=== PATIENT | male | born 1945 | race Caucasian/White ===

== ENCOUNTER 2019-08-15 14:12 | Day surgery (SDC) | payer MEDICARE, SELFPAY ==
[2019-08-14 08:15] VITALS: BMI 25.5
--- NOTE | 2019-08-15 | PATH_ITS ---
[facility] Accession Number: [id number] . 01 Material submitted: . toe - LEFT THIRD TOE . 01 Clinical history: . MASS, DOUBLE STITCH MEDIAL, SINGLE STITCH DISTAL TIP . 01 Diagnosis: Skin, Left Third Toe, Excision: Pyogenic granuloma, ulcerated. [facility] 08/19/2019 1831 Local . 01 Electronically signed: . Asia Jamison MD, Pathologist NPI- [id number] . 01 Gross description: . Received in formalin, labeled left third toe mass, two stitches medial, single distal tip, is a hankins-yellow firm mass (2.0 cm proximal to distal, 1.2 cm superior to inferior, 1.4 cm medial to lateral) oriented with sutures (double-medial, single-distal tip). The cut surface is doty-white and hankins-yellow, smooth and semi-translucent. Ink code: purple-distal, yellow-proximal, black-superior, orange-inferior, blue-lateral, green-medial. Section code: (A1) distal margin, perpendicularly sectioned, entirely submitted; (A2) cash applications representative serial sections; (A3) proximal margin, perpendicularly sectioned, entirely submitted. ([id number]) /MRV 08/16/2019 1257 Local . 01 Pathologist provided ICD-10: L98.0 . 01 CPT . 505028 Performed at: [address] [facility] [address], [place], [place] [id number] MD Chin Holliday MD Phone: [phone]
[2019-08-15 15:00] VITALS: BP 203/112; PULSE 103; RESP 17; TEMP 37.5; O2SAT 97; BMI 25.5
[2019-08-15] MEDS: LACTATED RINGERS 1,000 ML 100 ML IV (15:44)
[2019-08-15] MEDS: MIDAZOLAM 2 MG/2 ML VIAL IV (15:44)
[2019-08-15 16:22] VITALS: BP 178/95; PULSE 89; RESP 17; TEMP 37.1; O2SAT 95
--- NOTE | 2019-08-15 16:23 | SUR.PREOP ---
Pt arrived with a BP of 203/112 and a HR of 103. This was reported to both Dr. Knight and Dr. Hawkins. Verbal orders received and written for 1-2mg versed IV. 1mg administered at 1544. BP rechecked at 1615 and shows BP 178/95 HR in mid 80's. Pt was also placed on continuous pulse ox for observation.
--- NOTE | 2019-08-15 16:39 | PM.PREOP ---
Pre-operative Note Interval Note History & Physical reviewed/Exam performed by Physician: Yes Changes to H&P: No
--- NOTE | 2019-08-15 16:39 | PM.OP.1 ---
Operative Date/Time/Diagnoses Date of procedure: 08/15/19 Time of procedure: 16:39 Pre-op diagnosis: Soft tissue mass left third toe Post-op diagnosis: same Procedure & Clinicians Procedure: Left third toe excision soft tissue mass Same procedure as scheduled: Yes Indications: Large soft tissue mass, chronic, to the left third toe. He states history x10-12 years with waxing and waning in size, however this last enlargement has not retracted and has been painful. Due to pain, difficulty wearing shoes, and need for histlogical biopsy, decision made for surgical excision. Surgeon: Amisha Knight Click Yes if Unassisted: Yes Anesthesia Type: Sedation and Local Operative Notes Closure Type: primary Specimen(s): other (Left third toe soft tissue mass sent to pathology for identification) Estimated Blood Loss (mL): 10 Blood products transfused: none Procedure in detail: The patient was brought to the operating room and placed on the operating table in the supine position. Well padded appropriately aligned. After induction of IV sedation local anesthesia was obtained to the 3rd toe and the foot and ankle were prepped and draped in the usual aseptic manner. After check of anesthesia a full-thickness incision was made around the fleshy stalk of the mass connecting to distal tip of the left 3rd toe. Immediately there was a bleeding at the tip and pressure was applied. No purulent discharge was noted. The fleshy mass was measured at 2.1 cm length by 1.1 cm width by 0.6 cm in thickness. It was a slightly curved mass based on the pressure from the nail and the distal tip of the toe. This was then tagged with the most proximal or dorsal tip of the fleshy mass with a single suture tag and the most medial aspect of the fleshy mass with 2 suture tags. This was passed off to be sent to pathology. With a slightly more elongated incision in that same location on the tip of the toe this allowed me to see some of the further aspect of the stalk of the vascular component. This was debrided and then the area was curetted. This was irrigated with copious amounts of normal sterile saline and cautery was performed. No necrotic tissue or abscesses were noted. 4-0 nylon was used for closure to the skin. The area was dressed with a sterile lightly compressive dressing. He was placed in a stockinette and postoperative shoe and transferred to the PACU with vital signs stable. Complications: none Post-operative Condition: stable Disposition: PACU Plan for aftercare: Following a period of postoperative monitoring, the patient will be discharged home on written and oral postoperative instructions including keeping the dressing dry and intact. He and his neighbor who were present had questions regarding his ambulation status. It was decided that his neighbors going to help walk his dog as significant amounts of pressure and walking on this toe could diminish the potential for wound closure and incisional healing. This also could cause some additional bleeding and we discussed measures to take in case that bleeding occurred. This appears to me to be a vascularly motivated mass and looking at the distal tip of the toe as I worked with that further, there are segments of the distal tip of the toe that did cause me to have questions about the possibility that the toe has itself a vascular component that is different than the surrounding digits. We will see how he is healing and also gain further insight from the pathology as it returns. They voiced understanding and he will follow up for a wound check at our office at his regularly scheduled time and hopefully we can get some further information about the pathology at that visit.
[2019-08-15] MEDS: CEFAZOLIN 2 GM/100 ML FROZ.PIGGY IV (16:54)
--- NOTE | 2019-08-15 17:11 | SUR.OPER ---
Supine on padded OR bed, head on pillow, arms secured on padded arm boards at <90 degrees abduction, legs uncrossed, safety belt at waist, tape over blanket over lower right leg, left g with gel bump under thigh and draped free.
[2019-08-15] MEDS: LIDOCAINE 2% INJ SDV 5 ML INJ (17:21)
[2019-08-15] MEDS: BUPIVACAINE 0.5% (PF) VIAL 30 ML INJ (17:22)
[2019-08-15 17:41] VITALS: BP 214/104; PULSE 82; RESP 15; TEMP 36.5; O2SAT 99
[2019-08-15 18:00] VITALS: BP 209/93; PULSE 80; RESP 15; TEMP 36.2; O2SAT 98
[2019-08-15 18:10] VITALS: BP 204/95; PULSE 75; RESP 14; TEMP 36.1; O2SAT 99
--- NOTE | 2019-08-15 18:48 | SUR.PHASEII ---
Dr. Knight and Dr. Lewis both aware of pt blood pressure readings in Phase II. Pt asymptomatic and pt reports he is very anxious in healthcare facilities which cause him to have high blood pressure readings. Per both Md's ok for pt to be discharged to home as pt pre op bp reading was within 20 points. Pt instructed to follow up with his pcp reading his bp readings. pt voiced understanding and stated he had a follow up appt scheduled with pcp next Monday. Pt dc to home with his friend in stable condition.
== END 2019-08-15 18:25 ==
LOC: OR 14:17
PROVIDERS: Family Provider Internal Medicine; PCP Internal Medicine; Visit Provider Podiatrist
PROC: (CPT 64782; principal; 2019-08-15 16:00)
DX: L98.0 Pyogenic granuloma (principal)
CPT/HCPCS: 28039; J0690; J2250; J2704

== ENCOUNTER 2019-09-25 11:41 | Day surgery (SDC) | payer MEDICARE, SELFPAY ==
[2019-09-25 12:09] VITALS: BP 202/104; PULSE 105; RESP 18; TEMP 37; O2SAT 98; BMI 23.8
[2019-09-25 12:40] VITALS: BMI 23.8
--- NOTE | 2019-09-25 12:49 | SUR.PREOP ---
Notified Dr Rick pt's BP 201/104. No new orders.
--- NOTE | 2019-09-25 12:55 | PM.HP.1 ---
History of Present Illness History of Present Illness Date Patient Seen: 09/25/19 Time Patient Seen: 12:56 Chief complaint: [address] Narrative: Screening, 1st time Patient History Medical History (Updated 08/14/19 @ 12:48 by Iris Miranda RN) Elevated blood pressure reading without diagnosis of hypertension (Acute) GERD (gastroesophageal reflux disease) (Acute) Localized swelling, mass and lump, left lower limb (Acute 08/12/19) Surgical History (Updated 08/14/19 @ 12:48 by Iris Miranda RN) History of excision of pilonidal cyst (Acute ~1968) Family & Social History Social History: household members none Tobacco & Substance use: Smoking Status Former smoker Substance Use Type does not use Meds Home Medications and Allergies Home Medications Medication Instructions Recorded Confirmed Type aspirin 81 mg PO DAILY 08/14/19 09/25/19 History multivitamin 1 cap PO DAILY 08/14/19 09/25/19 History omeprazole 20 mg PO Q OTHER DAY 08/14/19 09/25/19 History lisinopril 10 mg PO DAILY 09/25/19 09/25/19 History simvastatin 10 mg PO QPM 09/25/19 09/25/19 History Allergies Allergy/AdvReac Type Severity Reaction Status Date / Time No Known Drug Allergies Allergy Verified 09/25/19 12:05 Exam Vital Signs (past 8 hours): - 09/25/19 12:09 Temperature 98.6 F Pulse Rate 105 H Respiratory Rate 18 Blood Pressure 202/104 H Pulse Oximetry 98 Oxygen Delivery Method Room Air Narrative Exam Narrative: Oropharynx free of lesions Chest clear to auscultation percussion Cardiac exam reveals no S3 or murmur Assessment & Plan Assessment & Plan narrative: For screening colonoscopy. Risks benefits and alternatives been explained. Further recommendations will follow the results of the study.
--- NOTE | 2019-09-25 12:56 | PM.OP.ENDO ---
Operative Date/Time/Diagnoses Date of procedure: 09/25/19 Time of procedure: 12:57 Pre-op diagnosis: See indication and findings Procedure & Clinicians Study performed: Colonoscopy Indications: Screening Surgeon: Félix Rick Procedure Notes Procedure in detail: After informed consent was obtained the patient was placed in left lateral decubitus position. The video colonoscope was introduced the rectum slowly advanced to the cecum. On slow withdrawal mucosa was carefully examined. The scope was removed. The patient tolerated procedure well. Blood loss none Complications none Sedation Total sedation time 21 minutes Versed 4 mg fentanyl 150 micro g IV titration Findings 1. Scattered left-sided diverticulosis 2. Otherwise negative colonoscopy to cecum The patient is in excellent health 1 might consider follow-up colonoscopy. NB: Prior to sedation patient had very high blood pressure ranging up to the 210 over 120 range. Once receiving sedation his heart rate came down from 01/20 range to the 80 range in blood pressure was 150/95. As soon as he opened his eyes again it jumped up to 175/105. I told of a worthwhile to follow-up with Dr. gonzalez for further discussion.
[2019-09-25] MEDS: MIDAZOLAM 5 MG/5 ML VIAL IV (13:33)
[2019-09-25] MEDS: fentaNYL 250 MCG/5 ML INJ IV (13:33)
[2019-09-25 13:55] VITALS: BP 171/93; PULSE 97; RESP 18; O2SAT 96
[2019-09-25 14:06] VITALS: BP 166/95; PULSE 90; RESP 16; TEMP 36.8; O2SAT 97
== END 2019-09-25 14:37 | disposition home or self-care (01) ==
LOC: ENDO 11:45
PROVIDERS: Family Provider Internal Medicine; PCP Internal Medicine; Visit Provider Internal Medicine Gastroenterology
PROC: 0DJD8ZZ Inspection of Lower Intestinal Tract, Via Natural or Artificial Opening Endoscopic (ICD-10-PCS; CPT 45378; principal; 2019-09-25 13:00)
DX: Z12.11 Encounter for screening for malignant neoplasm of colon (principal); K57.30 Diverticulosis of large intestine without perforation or abscess without bleeding
CPT/HCPCS: G0121; J2250; J3010

== ENCOUNTER → 2020-04-01 07:25 | Outpatient (CLI) | payer MEDICARE, SELFPAY ==
[2020-04-01 09:09] LABS: Alanine Aminotransferase 20 IU/L (<50); Albumin 4.3 g/dL (3.5-5.0); Albumin Globulin Ratio 1.4 (1.0-2.8); Alkaline Phosphatase 57 U/L (38-126); Aspartate Aminotransferase 30 IU/L (17-59); BUN Creatinine Ratio 18.8 (6-22); Bilirubin Total 0.5 mg/dL (0.2-1.3); Blood Urea Nitrogen 16 mg/dL (9-20); Calcium 10.4 mg/dL (8.4-10.2); Carbon Dioxide 25 mmol/L (22-32); Chloride 103 mmol/L (98-107); Cholesterol 167 mg/dL (140-199); Estimated Glomerular Filt Rate > 60.0 mL/min (>60); Glucose 112 mg/dL (80-110); HDL Cholesterol 47 mg/dL (40-60); HEMOLYSIS < 15 (0-50); LDL Cholesterol Calculated 107 mg/dL (<100); Potassium 4.8 mmol/L (3.4-5.1); Sodium 137 mmol/L (137-145); Total Protein 7.3 g/dL (6.3-8.2); Triglycerides 66 mg/dL (35-150)
[2020-04-02 08:19] LABS: PSA Free % 18.3 % (.)
== END ==
PROVIDERS: Family Provider Internal Medicine; PCP Internal Medicine; Referring Provider Internal Medicine; Visit Provider Internal Medicine
DX: N40.1 Benign prostatic hyperplasia with lower urinary tract symptoms (principal); E78.5 Hyperlipidemia, unspecified
CPT/HCPCS: 36415; 80053; 80061; 84153; 84154

== ENCOUNTER → 2021-01-14 09:57 | Outpatient (CLI) | payer MEDICARE, SELFPAY ==
[2021-01-14] MEDS: COVID-19 VACC, Ad26(JANSSEN)/PF 0.5 ML IM (10:03)
== END ==
PROVIDERS: Family Provider Internal Medicine; PCP Internal Medicine; Visit Provider Internal Medicine
DX: Z23 Encounter for immunization (principal)
CPT/HCPCS: 0031A; 91303

== ENCOUNTER 2021-11-11 15:02 | Emergency (ER) | payer MEDICARE, SELFPAY ==
[2021-11-11] VITALS (15 sets, daily range): BP systolic 172–232; BP diastolic 86–125; PULSE 84–135; RESP 14–23; TEMP 36.8; O2SAT 91–97; BMI 21.7
[2021-11-11 16:11] LABS: Add Manual Diff / Slide Review NO; Basophils Absolute Auto 100 /uL (0-100); Basophils Percent Auto 0.6 % (0-2); Eosinophils Absolute Auto 100 /uL (0-450); Eosinophils Percent Auto 0.5 % (2-4); Hematocrit 45.3 % (41-53); Hemoglobin 15.6 g/dL (13.5-17.5); Lymphocytes Absolute Auto 1300 /uL (1100-4500); Lymphocytes Percent Auto 12.4 % (25-40); Mean Corpuscular HGB Conc 34.4 % (30-36); Mean Corpuscular Hemoglobin 33.2 PG (26-34); Mean Corpuscular Volume 96.5 fL (80-100); Monocytes Absolute Auto 1100 /uL (0-900); Monocytes Percent Auto 10.1 % (3-14); Neutrophils Absolute Auto 8300 /uL (1500-7000); Neutrophils Percent Auto 76.4 % (50-75); Platelet Count 330 X10^3/uL (150-400); Red Blood Cell Count 4.69 X10^6/uL (4.5-5.9); White Blood Cell Count 10.8 X10^3/uL (4.5-11.0)
[2021-11-11 16:16] LABS: Prothrombin Time 11.2 SECONDS (10.1-12.7)
[2021-11-11 16:19] LABS: PTT Partial Thromboplastin Tim 32 SECONDS (26.4-36.2)
[2021-11-11 16:23] LABS: Alanine Aminotransferase 22 IU/L (<50); Albumin 4.9 g/dL (3.5-5.0); Albumin Globulin Ratio 1.2 (1.0-2.8); Alkaline Phosphatase 67 U/L (38-126); Aspartate Aminotransferase 34 IU/L (17-59); BUN Creatinine Ratio 21.8 (6-22); Bilirubin Total 0.4 mg/dL (0.2-1.3); Blood Urea Nitrogen 17 mg/dL (9-20); Calcium 10.6 mg/dL (8.4-10.2); Carbon Dioxide 27 mmol/L (22-32); Chloride 100 mmol/L (98-107); Creatine Kinase 118 U/L (55-170); Estimated Glomerular Filt Rate > 60.0 mL/min (>60); Glucose 136 mg/dL (80-110); HEMOLYSIS 24 (0-50); Lipase 88 U/L (23-300); Potassium 4.2 mmol/L (3.4-5.1); Sodium 136 mmol/L (137-145); Total Protein 8.9 g/dL (6.3-8.2)
[2021-11-11 16:33] LABS: Troponin I < 0.012 ng/mL (0.01-0.034)
[2021-11-11 16:38] LABS: CKMB % Relative Index 2.2 % (1.5-5.0); Creatine Kinase MB 2.55 ng/mL (<2.37)
--- NOTE | 2021-11-11 17:41 | DI.CT.S_ITS ---
PROCEDURE: CT ABDOMEN PELVIS W CON INDICATIONS: abdd pain TECHNIQUE: After the administration of intravenous contrast, axial sections acquired from the lung bases to the pubic symphysis. Coronal and sagittal reformats were performed. For radiation dose reduction, the following was used: automated exposure control, adjustment of mA and/or kV according to patient size. COMPARISON: None. FINDINGS: Image quality: Diagnostic Lung bases: Patchy bibasilar opacities. Heart: No significant findings. Very small hiatal hernia. ABDOMEN: Liver: Unremarkable. Gallbladder: Unremarkable. Biliary ducts: Unremarkable. Pancreas: Unremarkable. Spleen: Unremarkable. Adrenal Glands: Unremarkable. Kidneys and Ureters: Unremarkable. Subcentimeter right renal hypodensity is incompletely characterized but likely represents a small cyst. Stomach and Bowel: There is gastric distension and long segment of moderately dilated small bowel without definite bowel wall thickening or significant surrounding inflammatory stranding. There is also a small bowel fecalization particularly involving the left upper abdomen. Numerous fluid-filled loops of small bowel are also noted. No definite transition point noted although it is favored to be somewhere within the right abdomen. The distal small bowel and colon appear to be decompressed. Minimal circumferential wall thickening of the descending colon and sigmoid colon likely related to incomplete distension. Peritoneum: No abnormal intraperitoneal fluid. No free air. Ventral Wall: No hernia. Abdominal Nodes: No retroperitoneal or mesenteric adenopathy by size criteria. Vessels: Scattered atherosclerotic calcifications of the abdominal aorta and iliac vessels without aneurysmal dilatation. PELVIS: Pelvic Organs: Prostatomegaly. Bladder: Mild distention of the urinary bladder. Pelvic Nodes: No enlarged lymph nodes. Miscellaneous: Tiny fat containing right inguinal hernia. Bones: No acute vertebral body compression fractures. Multilevel spondylitic changes throughout the imaged spine. No suspicious osseous lesions. IMPRESSION: 1. Long segment of moderate small bowel dilatation with decompressed distal small bowel and colon. No definite transition point identified but is favored to be in the right abdomen. Findings are compatible with small bowel obstruction. Recommend surgical consultation. 2. Prostatomegaly. 3. Moderate distension of the urinary bladder. No evidence for obstructive uropathy. 4. Extensive atherosclerotic vascular disease. Other chronic findings as above. Findings were discussed with Dr. Arriola at 6:27 p.m [facility]. Dictated by: Byron Patten M.D. on 11/11/2021 at 18:16 Approved by: Byron Patten M.D. on 11/11/2021 at 18:29
[2021-11-11] MEDS: HYDROMORPHONE 0.5 MG INJ IV (17:46)
[2021-11-11] MEDS: ONDANSETRON 4 MG/2 ML INJ IV ×2 (17:46→19:59)
--- NOTE | 2021-11-11 18:43 | ED.ABDPAIN ---
HPI - Abdominal Pain General Chief Complaint: Abdominal Pain Stated Complaint: states biliary colic Time Seen by Provider: 11/11/21 18:28 Source: patient Mode of arrival: Ambulatory History of Present Illness HPI narrative: Patient is a 76-year-old male history of hypertension presenting with ongoing abdominal pain. He says over the last 10 years she has had intermittent abdominal pain with swelling in his right upper quadrant. He has some home remedies that usually works. However over last 1 month and specifically over the last week he has had increased in frequency and intensity. He says he actually feels and sees a bulge in his right upper quadrant. He denies any nausea or vomiting his bowel movements have been normal. He has no decrease in appetite. No fever chills chest pain or palpitations. He has had no prior surgeries on his abdomen. Related Data Home Medications Medication Instructions Recorded Confirmed aspirin 81 mg tablet,delayed 81 mg PO DAILY 08/14/19 09/25/19 release multivitamin 1 cap PO DAILY 08/14/19 09/25/19 omeprazole 20 mg capsule,delayed 20 mg PO Q OTHER DAY 08/14/19 09/25/19 release lisinopril 10 mg tablet 10 mg PO DAILY 09/25/19 09/25/19 simvastatin 10 mg tablet 10 mg PO QPM 09/25/19 09/25/19 Allergies Allergy/AdvReac Type Severity Reaction Status Date / Time No Known Drug Allergies Allergy Verified 11/11/21 15:45 Review of Systems Review of Systems Narrative: GENERAL: Denies chills, fatigue, malaise, fever, sweats, travel HEENT: Denies sinus pain, ear pain, sore throat, difficulty swallowing, neck pain RESPIRATORY: Denies dyspnea, cough, wheezing, hemoptysis, sputum. CARDIOVASCULAR: Denies chest pain, palpitations, orthopnea, edema GASTROINTESTINAL: See HPI : Denies dysuria, frequency, incontinence, hematuria, urinary retention, flank pain. MUSCULOSKELETAL: Denies weakness, joint pain, or bony pain SKIN: No rash, no erythema, no pruritus NEUROLOGIC: Denies weakness, dizziness, headache, numbness, change in speech, confusion PSYCHIATRIC: No concerning psychosocial issues. 12 point review of systems is negative except for those stated above and HPI Patient History Medical History Elevated blood pressure reading without diagnosis of hypertension GERD (gastroesophageal reflux disease) Localized swelling, mass and lump, left lower limb (08/12/19) Surgical History History of excision of pilonidal cyst (~1969) Social History household members: none Smoking Status: Former smoker Smoking Status: Former smoker alcohol intake frequency: holidays/special occasions only Substance Use Type: does not use Exam Initial Vital Signs Initial Vital Signs: Vital Signs Temperature 98.2 F 11/11/21 15:45 Pulse Rate 135 H 11/11/21 15:45 Respiratory Rate 15 11/11/21 15:45 Blood Pressure 222/125 H 11/11/21 15:45 Pulse Oximetry 97 11/11/21 15:45 GENERAL: Alert well-appearing 76-year-old maleand in no acute distress. HEENT: Head atraumatic,EOMI, pupils reactive, face symmetric, moist mucous membranes CARDIOVASCULAR: Tachycardic regular no murmurs RESPIRATORY: Breath sounds equal bilaterally, no wheezes rales or rhonchi. ABDOMEN: Soft, no distention, positive bowel sounds mild tenderness right upper quadrant EXTREMITIES: Normal range of motion, no clubbing or edema. Neurovascularly intact NEUROLOGICAL: Alert and oriented x4.Normal gait and speech. SKIN: Warm, dry, no laceration, no petechiae, no rashes or lesions. Course Orders Ordered: ED Orders 11/11/21 18:51 US abdomen limited Stat 11/11/21 20:45 COVID19 - ADMIT ([employer] swab/PCR) Stat Discontinued Medications Hydromorphone HCl (Hydromorphone 0.5 Mg Inj) 0.5 mg IV NOW PRN PRN Reason: Pain, Severe (7-10) Last Admin: 11/11/21 17:46 Dose: 0.5 mg Documented by: SHASTA Sodium Chloride (Normal Saline 0.9%) 1,000 mls @ 1,000 mls/hr IV BOLUS ONE Stop: 11/11/21 19:42 Last Infusion: 11/11/21 20:47 Dose: 0 mls/hr Documented by: Admin: 11/11/21 19:16 Dose: 1,000 mls/hr Documented by: AUPDIKE Ondansetron HCl (Ondansetron 4 Mg/2 Ml Inj) 4 mg IV NOW ONE Stop: 11/11/21 17:43 Last Admin: 11/11/21 17:46 Dose: 4 mg Documented by: SHASTA Ondansetron HCl (Ondansetron 4 Mg/2 Ml Inj) 4 mg IV NOW ONE Stop: 11/11/21 19:54 Last Admin: 11/11/21 19:59 Dose: 4 mg Documented by: JULIANE Ondansetron HCl (Ondansetron 4 Mg/2 Ml Inj) 4 mg IV NOW ONE Stop: 11/11/21 19:55 Last Admin: 11/11/21 20:47 Dose: Not Given Documented by: JULIANE Ondansetron HCl (Ondansetron 4 Mg Odt Prepack) 1 bottle MISC SEEINSTR ONE Stop: 11/11/21 22:47 Last Admin: 11/11/21 22:57 Dose: 1 bottle Documented by: JULIANE Prochlorperazine (Prochlorperazine 10 Mg/2 Ml Vial) 10 mg IV NOW ONE Stop: 11/11/21 20:35 Last Admin: 11/11/21 20:38 Dose: 10 mg Documented by: JULIANE Vital Signs Vital signs: Vital Signs - 8 hr 11/11/21 20:00 11/11/21 20:30 11/11/21 20:31 Pulse Rate 98 H 91 H 92 H Respiratory Rate Blood Pressure 172/113 H 232/121 H Pulse Oximetry 93 94 96 11/11/21 20:37 11/11/21 20:38 11/11/21 21:00 Pulse Rate 92 H 91 H 87 Respiratory Rate Blood Pressure 216/114 H 216/114 H 204/95 H Pulse Oximetry 94 11/11/21 21:30 11/11/21 22:00 11/11/21 22:30 Pulse Rate 84 94 H 98 H Respiratory Rate 14 Blood Pressure 177/86 H 213/105 H 196/121 H Pulse Oximetry 91 95 95 MDM - Abdominal Pain Lab Data Result diagrams: 11/11/21 15:56 11/11/21 15:56 Labs: Lab Results 11/11/21 11/11/21 11/11/21 Range/Units 15:56 15:56 15:56 WBC 10.8 (4.5-11.0) X10^3/uL RBC 4.69 (4.5-5.9) X10^6/uL Hgb 15.6 (13.5-17.5) g/dL Hct 45.3 (41-53) % MCV 96.5 (80-100) fL MCH 33.2 (26-34) PG MCHC 34.4 (30-36) % RDW 13.0 (11.6-14.8) % Plt Count 330 (150-400) X10^3/uL Neut % (Auto) 76.4 H (50-75) % Lymph % (Auto) 12.4 L (25-40) % [place] % (Auto) 10.1 (3-14) % Eos % (Auto) 0.5 L (2-4) % Baso % (Auto) 0.6 (0-2) % Neut # (Auto) 8300 H (4065-5238) /uL Lymph # (Auto) 1300 (5931-8157) /uL [place] # (Auto) 1100 H (0-900) /uL Eos # (Auto) 100 (0-450) /uL Baso # (Auto) 100 (0-100) /uL PT 11.2 (10.1-12.7) SECONDS INR 1.0 (0.9-1.3) APTT 32 (26.4-36.2) SECONDS Sodium 136 L (137-145) mmol/L Potassium 4.2 (3.4-5.1) mmol/L Chloride 100 (98-107) mmol/L Carbon Dioxide 27 (22-32) mmol/L BUN 17 (9-20) mg/dL Creatinine 0.78 (0.66-1.25) mg/dL Estimated GFR > 60.0 (>60) mL/min BUN/Creatinine Ratio 21.8 (6-22) Glucose 136 H (80-110) mg/dL Calcium 10.6 H (8.4-10.2) mg/dL Total Bilirubin 0.4 (0.2-1.3) mg/dL AST 34 (17-59) IU/L ALT 22 (<50) IU/L Alkaline Phosphatase 67 (38-126) U/L Total Creatine Kinase 118 (55-170) U/L CK-MB (CK-2) 2.55 H (<2.37) ng/mL CK-MB (CK-2) Rel Index 2.2 (1.5-5.0) % Troponin I < 0.012 (0.01-0.034) ng/mL Total Protein 8.9 H (6.3-8.2) g/dL Albumin 4.9 (3.5-5.0) g/dL Globulin 4.0 (1.7-4.1) g/dL Albumin/Globulin Ratio 1.2 (1.0-2.8) Lipase 88 (23-300) U/L SARS-CoV-2 (PCR) (Negative) 11/11/21 Range/Units 20:45 WBC (4.5-11.0) X10^3/uL RBC (4.5-5.9) X10^6/uL Hgb (13.5-17.5) g/dL Hct (41-53) % MCV (80-100) fL MCH (26-34) PG MCHC (30-36) % RDW (11.6-14.8) % Plt Count (150-400) X10^3/uL Neut % (Auto) (50-75) % Lymph % (Auto) (25-40) % [place] % (Auto) (3-14) % Eos % (Auto) (2-4) % Baso % (Auto) (0-2) % Neut # (Auto) (7138-7807) /uL Lymph # (Auto) (3637-1654) /uL [place] # (Auto) (0-900) /uL Eos # (Auto) (0-450) /uL Baso # (Auto) (0-100) /uL PT (10.1-12.7) SECONDS INR (0.9-1.3) APTT (26.4-36.2) SECONDS Sodium (137-145) mmol/L Potassium (3.4-5.1) mmol/L Chloride (98-107) mmol/L Carbon Dioxide (22-32) mmol/L BUN (9-20) mg/dL Creatinine (0.66-1.25) mg/dL Estimated GFR (>60) mL/min BUN/Creatinine Ratio (6-22) Glucose (80-110) mg/dL Calcium (8.4-10.2) mg/dL Total Bilirubin (0.2-1.3) mg/dL AST (17-59) IU/L ALT (<50) IU/L Alkaline Phosphatase (38-126) U/L Total Creatine Kinase (55-170) U/L CK-MB (CK-2) (<2.37) ng/mL CK-MB (CK-2) Rel Index (1.5-5.0) % Troponin I (0.01-0.034) ng/mL Total Protein (6.3-8.2) g/dL Albumin (3.5-5.0) g/dL Globulin (1.7-4.1) g/dL Albumin/Globulin Ratio (1.0-2.8) Lipase (23-300) U/L SARS-CoV-2 (PCR) Negative (Negative) Point of care testing: Urine Dip Bedside Urine Glucose Negative Bedside Urine Bilirubin - Negative Bedside Urine Ketone - Negative Urine Specific [place] 1.015 Bedside Urine Occult Blood - Negative Bedside Urine pH 6.5 Bedside Urine Protein - Negative Bedside Urine Urobilinogen - Negative Bedside Urine Nitrite - Negative Bedside Urine Leukocytes - Negative Esterase Imaging Data CT scan - abdomen/pelvis: Radiologist's Impression: PROCEDURE:? CT ABDOMEN PELVIS W CON ? INDICATIONS:? abdd pain ? TECHNIQUE:? After the administration of intravenous contrast, axial sections acquired from the lung bases to the pubic symphysis.? Coronal and sagittal reformats were performed.? For radiation dose reduction, the following was used:? automated exposure control, adjustment of mA and/or kV according to patient size.? ? COMPARISON:? None. ? FINDINGS: ? Image quality:? Diagnostic ? Lung bases:? Patchy bibasilar opacities. Heart:? No significant findings.? Very small hiatal hernia. ? ABDOMEN: Liver:? Unremarkable.? ? Gallbladder:? Unremarkable.? ? Biliary ducts:? Unremarkable.? ? Pancreas:? Unremarkable.? ? Spleen:? Unremarkable.? ? Adrenal Glands:? Unremarkable.? ? Kidneys and Ureters:? Unremarkable.? Subcentimeter right renal hypodensity is incompletely characterized but likely represents a small cyst. ? ? Stomach and Bowel:? There is gastric distension and long segment of moderately dilated small bowel without definite bowel wall thickening or significant surrounding inflammatory stranding.? There is also a small bowel fecalization particularly involving the left upper abdomen.? Numerous fluid-filled loops of small bowel are also noted.? No definite transition point noted although it is favored to be somewhere within the right abdomen.? The distal small bowel and colon appear to be decompressed.? Minimal circumferential wall thickening of the descending colon and sigmoid colon likely related to incomplete distension. Peritoneum:? No abnormal intraperitoneal fluid.? No free air.? ? Ventral Wall: ? No hernia.? Abdominal Nodes:? No retroperitoneal or mesenteric adenopathy by size criteria.? Vessels:? Scattered atherosclerotic calcifications of the abdominal aorta and iliac vessels without aneurysmal dilatation.? ? PELVIS: Pelvic Organs:? Prostatomegaly.? ? Bladder:? Mild distention of the urinary bladder.? ? Pelvic Nodes: No enlarged lymph nodes.? Miscellaneous:? Tiny fat containing right inguinal hernia. ? ? ? Bones:? No acute vertebral body compression fractures. Multilevel spondylitic changes throughout the imaged spine.? No suspicious osseous lesions. ? ? IMPRESSION: ? 1. Long segment of moderate small bowel dilatation with decompressed distal small bowel and colon.? No definite transition point identified but is favored to be in the right abdomen.? Findings are compatible with small bowel obstruction.? Recommend surgical consultation. ? 2. Prostatomegaly. ? 3. Moderate distension of the urinary bladder.? No evidence for obstructive uropathy.? ? 4. Extensive atherosclerotic vascular disease.? ? Other chronic findings as above. ? Findings were discussed with Dr. Arriola at 6:27 p.m PST. ? Dictated by: Byron Patten M.D. on 11/11/2021 at 18:16 ? ? US - abdomen: Radiologist's Impression: PROCEDURE: US ABDOMEN LIMITED ? INDICATIONS:? RUQ PAIN ? TECHNIQUE:? Real-time focused scanning was performed of the abdomen, with image documentation.? ? COMPARISON:? [facility], CT, CT ABDOMEN PELVIS W CON, 11/11/2021, 18:02. ? FINDINGS:? ? The liver is normal in size and demonstrates no discrete mass lesion. ? Gallbladder demonstrates no gallstones, wall thickening, or pericholecystic fluid.? No intra hepatic biliary ductal dilatation.? The visualized extrahepatic common duct is at the upper limits of normal, measuring up to 7 mm. ? The pancreas was not visualized sonographically. ? IMPRESSION:? ? 1. No evidence of cholelithiasis or cholecystitis. ? 2. Visualized common bile duct at the upper limits of normal in caliber.? No definite biliary ductal dilatation seen on the recent CT.? ? ? Dictated by: Chin Velazquez M.D. on 11/11/2021 at 21:38 ? ? ECG Data Interpretation: Sinus tachycardia rate 118 p.r. interval 162 QRS 128 QTC 470 right bundle-branch block noted no other (upper ST changes MDM Narrative Medical decision making narrative: Patient initially was quite hypertensive and tachycardic given pain medication fluids which did seem to help. CT showed possible small bowel obstruction however he is not having any nausea or vomiting. 1849-surgery Dr. Herzog has been updated patient's symptoms and test results at this time he recommends is ultrasound. But patient clinically does not have a small-bowel obstruction. Ultrasound was negative however patient has developed some nausea he is given multiple doses of anti nausea medication stress really do seem to help. Surgery is reconsulted with now new symptom of nausea and CT showing small bowel obstruction. However at this time patient has relatively no pain he is not vomiting he would like to go home. At this time surgery and I both agree that he may go home with outpatient follow-up. Discharge Plan Departure Patient Disposition: Home Clinical Impression: Abdominal pain Instructions: DI for Abdominal Pain-Adult Activity Restrictions/Additional Instructions: *You have been diagnosed with Abdominal pain *What to do: Please monitor for any worsening symptoms *Continue to take medications as directed Zofran 4 mg every 8 hours if needed for nausea vomiting *Follow up with your primary care provider in 2-3 days or call [phone] *Return to ER if you should have increasing abdominal pain persistent vomiting or any new, worsening or concerning symptoms Prescriptions: No Action aspirin 81 mg Tablet,Delayed Release (Dr/Ec) 81 mg PO DAILY 0RF omeprazole 20 mg Capsule,Delayed Release(Dr/Ec) 20 mg PO Q OTHER DAY 0RF multivitamin Capsule 1 cap PO DAILY 0RF simvastatin 10 mg Tablet 10 mg PO QPM 0RF lisinopril 10 mg Tablet 10 mg PO DAILY 0RF Referrals: Aguila Villafuerte MD [Primary Care Provider] -
--- NOTE | 2021-11-11 18:51 | DI.US.S_ITS ---
PROCEDURE: US ABDOMEN LIMITED INDICATIONS: RUQ PAIN TECHNIQUE: Real-time focused scanning was performed of the abdomen, with image documentation. COMPARISON: [facility], CT, CT ABDOMEN PELVIS W CON, 11/11/2021, 18:02. FINDINGS: The liver is normal in size and demonstrates no discrete mass lesion. Gallbladder demonstrates no gallstones, wall thickening, or pericholecystic fluid. No intra hepatic biliary ductal dilatation. The visualized extrahepatic common duct is at the upper limits of normal, measuring up to 7 mm. The pancreas was not visualized sonographically. IMPRESSION: 1. No evidence of cholelithiasis or cholecystitis. 2. Visualized common bile duct at the upper limits of normal in caliber. No definite biliary ductal dilatation seen on the recent CT. Dictated by: Chin Velazquez M.D. on 11/11/2021 at 21:38 Approved by: Chin Velazquez M.D. on 11/11/2021 at 21:41
[2021-11-11] MEDS: SODIUM CHLORIDE 0.9% 1,000 ML 1000 ML IV (19:16)
[2021-11-11] MEDS: PROCHLORPERAZINE 10 MG/2 ML VIAL IV (20:38)
[2021-11-11 22:02] LABS: COVID19 - ADMIT (NP swab/PCR) Negative (Negative)
[2021-11-11] MEDS: ONDANSETRON 4 MG ODT PREPACK 1 BOTTLE MISC (22:57)
== END 2021-11-11 23:05 | disposition home or self-care (01) ==
PROVIDERS: Emergency Medicine; Emergency Provider Emergency Medicine; Family Provider Internal Medicine; PCP Internal Medicine
DX: R10.11 Right upper quadrant pain (principal); R11.0 Nausea; R00.0 Tachycardia, unspecified; I10 Essential (primary) hypertension; Z20.822 Contact with and (suspected) exposure to COVID-19; Z87.891 Personal history of nicotine dependence
CPT/HCPCS: 36415; 74177; 76705; 80053; 81003; 82550; 82553; 83690; 84484; 85025; 85610; 85730; 87635; 93005; 93010; 96361; 96374; 96375; 96376; 99284; C9803; J0780; J1170; J2405; Q9967

== ENCOUNTER 2021-12-07 18:09 | Inpatient (IN) | payer MEDICARE, SELFPAY ==
[2021-12-07] VITALS (28 sets, daily range): BP systolic 199–260; BP diastolic 100–148; PULSE 68–98; RESP 16–39; TEMP 36.6–37.2; O2SAT 94–100; BMI 21.2
--- NOTE | 2021-12-07 18:45 | DI.US.S_ITS ---
PROCEDURE: US ABDOMEN LIMITED INDICATIONS: RUQ PAIN TECHNIQUE: Real-time scanning was performed of the abdominal and retroperitoneal organs, with image documentation. COMPARISON: [facility], , US ABDOMEN LIMITED, 11/11/2021, 20:23. FINDINGS: Liver: Liver is normal in size and homogeneous in echotexture. Gallbladder: The gallbladder demonstrates sludge. Wall thickness is within normal limits measuring 1.7 mm. Biliary ducts: Intrahepatic bile ducts are non-dilated. Extrahepatic bile duct caliber measures 5.1 mm. Normal is 6-7 mm or less in diameter, or 10 mm or less post-cholecystectomy. IMPRESSION: Gallbladder sludge without wall thickening. Dictated by: Caitlin Duval M.D. on 12/07/2021 at 20:14 Approved by: Caitlin Duval M.D. on 12/07/2021 at 20:15
--- NOTE | 2021-12-07 18:46 | ED_ITS ---
HPI - Abdominal Pain General Chief Complaint: Abdominal Pain Stated Complaint: ABD pain / nausea Time Seen by Provider: 12/07/21 18:20 Source: patient Mode of arrival: Ambulatory History of Present Illness HPI narrative: 76-year-old male of hypertension and GERD presents with a chief complaint of severe epigastric and right upper quadrant pain and worsening over the course of the day. He states that started rather suddenly about noon and feels similar to prior gallbladder episodes. He did, however eat just after the pain started in this did not seem to worsen his discomfort. He states the pain is worse when he moves and improves with rest. Denies any radiation of pain. He has had a few episodes of nausea and vomiting without any change on his symptoms. He has had no fever chills and denies any change in bowel habits. His blood pressure is quite elevated and he is not taking his medications for about 1 year because his PCP closed his office. He denies any headache or blurred vision. He has no chest pain or shortness of breath. His abdominal pain is located in the right upper quadrant only. He denies any neurologic symptoms such as numbness, tingling or weakness. Related Data Home Medications Medication Instructions Recorded Confirmed aspirin 81 mg tablet,delayed 81 mg PO DAILY 08/14/19 12/07/21 release multivitamin 1 cap PO DAILY 08/14/19 12/07/21 omeprazole 20 mg capsule,delayed 20 mg PO Q OTHER DAY 08/14/19 12/07/21 release lisinopril 10 mg tablet 10 mg PO DAILY 09/25/19 12/07/21 simvastatin 10 mg tablet 10 mg PO QPM 09/25/19 12/07/21 Allergies Allergy/AdvReac Type Severity Reaction Status Date / Time No Known Drug Allergies Allergy Verified 11/11/21 15:45 Review of Systems Review of Systems Narrative: GENERAL: See HPI HEENT: Denies sinus pain, ear pain, sore throat, difficulty swallowing, dizziness. RESPIRATORY: Denies dyspnea, cough, wheezing, hemoptysis, sputum. CARDIOVASCULAR: Denies chest pain, palpitations, orthopnea, edema, GASTROINTESTINAL: See HPI : Denies dysuria, frequency, incontinence, hematuria, urinary retention. MUSCULOSKELETAL: denies weakness, joint pain, or bony pain SKIN: Denies rash, skin lesions, or other NEUROLOGIC: Denies weakness, headache, numbness, change in speech, confusion, seizures, incoordination. PSYCHIATRIC: No concerning psychosocial issues. 12 point review of systems is negative except for those stated above Patient History Medical History Elevated blood pressure reading without diagnosis of hypertension GERD (gastroesophageal reflux disease) Localized swelling, mass and lump, left lower limb (08/12/19) Surgical History History of excision of pilonidal cyst (~1969) Social History household members: none Smoking Status: Former smoker Smoking Status: Former smoker alcohol intake frequency: holidays/special occasions only Substance Use Type: does not use Exam Narrative Exam Narrative: GENERAL: [76 year old patient appears stated age. Well-developed patient, in mild distress. HEAD: Atraumatic. Normocephalic. EYES: Pupils equal round and reactive. Extraocular motions intact. No scleral icterus. No injection or drainage. ENT: Nose without bleeding, purulent drainage. Throat without erythema, tonsillar hypertrophy or exudate. Airway patent. NECK: Trachea midline. Non tender CARDIOVASCULAR: Regular rate and rhythm without murmurs, gallops, or rubs. RESPIRATORY: Clear to auscultation. Breath sounds equal bilaterally. No wheezes, rales, or rhonchi. GASTROINTESTINAL: Abdomen soft, significant tenderness in the right upper quadrant nondistended. EXTREMITIES: No edema or joint tenderness. BACK: Nontender without deformity or crepitance. No flank tenderness. NEURO: AOx3. SKIN: No rash or erythema of visible areas Initial Vital Signs Initial Vital Signs: Vital Signs Temperature 97.8 F 12/07/21 18:24 Pulse Rate 98 H 12/07/21 18:24 Respiratory Rate 22 12/07/21 18:24 Pulse Oximetry 100 12/07/21 18:24 Course Orders Ordered: ED Orders 12/07/21 18:24 EKG-12 Lead Stat 12/07/21 18:37 Complete Blood Count AUTO DIFF Stat Comprehensive Metabolic Panel Stat Lipase Stat Troponin & CK Cardiac Panel Stat 12/07/21 18:45 US abdomen limited Stat 12/07/21 19:52 CT abdomen pelvis w con Stat 12/07/21 21:44 XR KUB Stat 12/07/21 21:45 COVID19 -Nasal swab/Pre-Proc Stat 12/08/21 05:00 Basic Metabolic Panel Routine Complete Blood Count AUTO DIFF Routine Enoxaparin Sodium (Enoxaparin 40 Mg/0.4 Ml Syringe) 40 mg SUBCUT DAILY [facility] Hydralazine HCl (Hydralazine 20 Mg/Ml Vial) 10 mg IV Q6HR PRN PRN Reason: Hypertension Last Admin: 12/08/21 00:11 Dose: 10 mg Documented by: LILIYA Sodium Chloride (Normal Saline 0.9%) 1,000 mls @ 125 mls/hr IV CONT HONEY Last Admin: 12/08/21 00:10 Dose: 125 mls/hr Documented by: LILIYA Morphine Sulfate (Morphine 2 Mg/Ml Inj) 2 mg IV Q4HR PRN PRN Reason: Pain, Moderate (4-6) Ondansetron HCl (Ondansetron 4 Mg/2 Ml Inj) 4 mg IV Q8HR PRN PRN Reason: Nausea And Vomiting Discontinued Medications Sodium Chloride (Normal Saline 0.9%) 500 mls @ 1,000 mls/hr IV BOLUS ONE Stop: 12/07/21 19:14 Last Admin: 12/07/21 20:29 Dose: 1,000 mls/hr Documented by: JAMES Labetalol HCl (Labetalol 20 Mg/4 Ml Syringe) 20 mg IV NOW ONE Stop: 12/07/21 18:46 Last Admin: 12/07/21 18:57 Dose: 10 mg Documented by: JAMES Morphine Sulfate (Morphine 4 Mg/Ml Inj) 4 mg IV NOW ONE Stop: 12/07/21 19:07 Last Admin: 12/07/21 19:27 Dose: 4 mg Documented by: JAMES Ondansetron HCl (Ondansetron 4 Mg/2 Ml Inj) 4 mg IV NOW ONE Stop: 12/07/21 18:25 Last Admin: 12/07/21 18:58 Dose: 4 mg Documented by: [email or web address] Ondansetron HCl (Ondansetron 4 Mg/2 Ml Inj) 4 mg IV NOW ONE Stop: 12/07/21 18:46 Reevaluation(s) Reevaluation #1: NG tube placed upon receipt of imaging, large amount of gastric contents out, patient is feeling some improvement already Consultations Consultation #1: Discussed with on-call surgeon, in agreement with plan for NPO status, IV fluids, pain control, antiemetics and NG tube with admission to hospitalist Consultation #2: Hospitalist happy to accept Vital Signs Vital signs: Vital Signs - 8 hr 12/07/21 18:24 12/07/21 18:27 12/07/21 18:30 Temperature 97.8 F Pulse Rate 98 H 96 H Respiratory Rate 22 Blood Pressure Pulse Oximetry 100 96 94 12/07/21 18:39 12/07/21 18:40 12/07/21 18:41 Temperature Pulse Rate 88 88 85 Respiratory Rate 23 22 Blood Pressure 260/134 H 258/133 H 258/135 H Pulse Oximetry 95 96 97 12/07/21 18:45 12/07/21 18:54 12/07/21 18:57 Temperature Pulse Rate 85 73 73 Respiratory Rate 26 H 25 H Blood Pressure 199/111 H 258/148 H Pulse Oximetry 96 95 12/07/21 19:00 12/07/21 19:08 12/07/21 19:09 Temperature Pulse Rate 72 71 72 Respiratory Rate 24 27 H 29 H Blood Pressure 251/116 H 225/118 H Pulse Oximetry 97 97 96 12/07/21 19:14 12/07/21 19:15 12/07/21 19:30 Temperature Pulse Rate 76 74 72 Respiratory Rate 26 H 26 H 18 Blood Pressure 223/120 H 233/108 H 217/100 H Pulse Oximetry 96 97 94 12/07/21 19:45 12/07/21 20:00 12/07/21 20:23 Temperature Pulse Rate 68 68 78 Respiratory Rate 32 H 17 Blood Pressure 215/105 H 214/108 H Pulse Oximetry 99 98 97 12/07/21 20:27 12/07/21 20:30 12/07/21 20:45 Temperature Pulse Rate 75 75 75 Respiratory Rate 16 27 H Blood Pressure 214/108 H Pulse Oximetry 97 96 12/07/21 21:00 12/07/21 21:15 12/07/21 21:30 Temperature Pulse Rate 80 84 87 Respiratory Rate 26 H 39 H 26 H Blood Pressure Pulse Oximetry 97 12/07/21 21:45 12/07/21 22:00 12/07/21 22:12 Temperature Pulse Rate 86 90 85 Respiratory Rate 24 24 22 Blood Pressure 223/110 H Pulse Oximetry MDM - Abdominal Pain Lab Data Result diagrams: 12/07/21 18:37 12/07/21 18:37 Labs: Lab Results 12/07/21 12/07/21 12/07/21 Range/Units 18:37 18:37 18:37 WBC 16.9 H (4.5-11.0) X10^3/uL RBC 4.74 (4.5-5.9) X10^6/uL Hgb 15.5 (13.5-17.5) g/dL Hct 46.1 (41-53) % MCV 97.2 (80-100) fL MCH 32.6 (26-34) PG MCHC 33.6 (30-36) % RDW 12.9 (11.6-14.8) % Plt Count 308 (150-400) X10^3/uL Neut % (Auto) 83.4 H (50-75) % Lymph % (Auto) 8.3 L (25-40) % Island % (Auto) 7.6 (3-14) % Eos % (Auto) 0.1 L (2-4) % Baso % (Auto) 0.6 (0-2) % Neut # (Auto) 94887 H (8316-9414) /uL Lymph # (Auto) 1400 (2556-5966) /uL Island # (Auto) 1300 H (0-900) /uL Eos # (Auto) 0 (0-450) /uL Baso # (Auto) 100 (0-100) /uL Sodium 137 (137-145) mmol/L Potassium 3.8 (3.4-5.1) mmol/L Chloride 98 (98-107) mmol/L Carbon Dioxide 29 (22-32) mmol/L BUN 15 (9-20) mg/dL Creatinine 0.73 (0.66-1.25) mg/dL Estimated GFR > 60.0 (>60) mL/min BUN/Creatinine Ratio 20.5 (6-22) Glucose 172 H (80-110) mg/dL Calcium 10.7 H (8.4-10.2) mg/dL Total Bilirubin 0.6 (0.2-1.3) mg/dL AST 45 (17-59) IU/L ALT 26 (<50) IU/L Alkaline Phosphatase 78 (38-126) U/L Total Creatine Kinase 122 (55-170) U/L CK-MB (CK-2) 2.85 H (<2.37) ng/mL CK-MB (CK-2) Rel Index 2.3 (1.5-5.0) % Troponin I 0.014 (0.01-0.034) ng/mL Total Protein 9.1 H (6.3-8.2) g/dL Albumin 5.0 (3.5-5.0) g/dL Globulin 4.1 (1.7-4.1) g/dL Albumin/Globulin Ratio 1.2 (1.0-2.8) Lipase 71 (23-300) U/L SARS-CoV-2 (PCR) (Negative) 12/07/21 Range/Units 21:45 WBC (4.5-11.0) X10^3/uL RBC (4.5-5.9) X10^6/uL Hgb (13.5-17.5) g/dL Hct (41-53) % MCV (80-100) fL MCH (26-34) PG MCHC (30-36) % RDW (11.6-14.8) % Plt Count (150-400) X10^3/uL Neut % (Auto) (50-75) % Lymph % (Auto) (25-40) % Island % (Auto) (3-14) % Eos % (Auto) (2-4) % Baso % (Auto) (0-2) % Neut # (Auto) (3231-4135) /uL Lymph # (Auto) (1144-5076) /uL Island # (Auto) (0-900) /uL Eos # (Auto) (0-450) /uL Baso # (Auto) (0-100) /uL Sodium (137-145) mmol/L Potassium (3.4-5.1) mmol/L Chloride (98-107) mmol/L Carbon Dioxide (22-32) mmol/L BUN (9-20) mg/dL Creatinine (0.66-1.25) mg/dL Estimated GFR (>60) mL/min BUN/Creatinine Ratio (6-22) Glucose (80-110) mg/dL Calcium (8.4-10.2) mg/dL Total Bilirubin (0.2-1.3) mg/dL AST (17-59) IU/L ALT (<50) IU/L Alkaline Phosphatase (38-126) U/L Total Creatine Kinase (55-170) U/L CK-MB (CK-2) (<2.37) ng/mL CK-MB (CK-2) Rel Index (1.5-5.0) % Troponin I (0.01-0.034) ng/mL Total Protein (6.3-8.2) g/dL Albumin (3.5-5.0) g/dL Globulin (1.7-4.1) g/dL Albumin/Globulin Ratio (1.0-2.8) Lipase (23-300) U/L SARS-CoV-2 (PCR) Negative (Negative) Point of care testing: Urine Dip Bedside Urine Glucose Negative Bedside Urine Bilirubin - Negative Bedside Urine Ketone - Negative Bedside Urine Occult Blood - Negative Bedside Urine pH 7 Bedside Urine Protein - Negative Bedside Urine Urobilinogen - Negative Bedside Urine Nitrite - Negative Bedside Urine Leukocytes - Negative Esterase Imaging Data US - abdomen: Radiologist's Impression: Close KUB X-Ray (Signed) Caitlin Duval - 12/07/21 Abdomen/Pelvis CT (Signed) Caitlin Duval - 12/07/21 Abdomen Ultrasound (Signed) Caitlin Duval - 12/07/21 Abdomen Ultrasound (Signed) Chin Velazquez - 11/11/21 Abdomen/Pelvis CT (Signed) Byron Patten - 11/11/21 Telemetry Strips 09/25/19 Launch?[address] [address] Ultrasound Report Signed Patient: Aguila Antonio MR#: [id number] : 1945 Acct:[id number] Age/Sex: 76 / M Date of Service: 12/07/21 Loc: ED Accession Number: [id number] ?? Procedure: US abdomen limited Ordering Provider: Napoleon Vargas D.O. PROCEDURE:? US ABDOMEN LIMITED ? INDICATIONS:? RUQ PAIN ? TECHNIQUE:? Real-time scanning was performed of the abdominal and retroperitoneal organs, with image documentation.? ? COMPARISON:[facility], [place], US ABDOMEN LIMITED, 11/11/2021, 20:23. ? FINDINGS:? ? Liver:? Liver is normal in size and homogeneous in echotexture.? ? Gallbladder:? The gallbladder demonstrates sludge.? Wall thickness is within normal limits measuring 1.7 mm.? ? Biliary ducts:? Intrahepatic bile ducts are non-dilated.? Extrahepatic bile duct caliber measures 5.1 mm.? Normal is 6-7 mm or less in diameter, or 10 mm or less post-cholecystectomy.? ? ? IMPRESSION:? Gallbladder sludge without wall thickening. ? Dictated by: Caitlin Duval M.D. on 12/07/2021 at 20:14 ? ? Approved by: Caitlin Duval M.D. on 12/07/2021 at 20:15 ? CT scan - abdomen/pelvis: Radiologist's Impression: Launch?Image [address] [address] [address] Scan Report Signed Patient: Aguila Antonio MR#: [id number] : 1945 Acct:[id number] Age/Sex: 76 / M Date of Service: 12/07/21 Loc: ED Accession Number: [id number] ?? Procedure: CT abdomen pelvis w con Ordering Provider: Napoleon Vargas D.O. PROCEDURE:? CT ABDOMEN PELVIS W CON ? INDICATIONS:? pain, vomiting ? TECHNIQUE:? After the administration of IV contrast, axial sections were acquired from the lung bases to the pubic symphysis.? Coronal and sagittal reformats were performed.? For radiation dose reduction, the following was used:? automated exposure control, adjustment of mA and/or kV according to patient size. ? COMPARISON:? [facility], ABDOMEN LIMITED, 12/07/2021, 19:11.? [facility], ABDOMEN LIMITED, 11/11/2021, 20:23.? [facility], CT, CT ABDOMEN PELVIS W CON, 11/11/2021, 18:02. ? FINDINGS:? Image quality:? Excellent.? ? Lung bases:? Emphysematous changes are present within the lungs bilaterally. Heart:? No significant findings. ? ? ABDOMEN: Liver:? Hepatic steatosis is present. Gallbladder:? Unremarkable.? ? Biliary ducts:? Unremarkable.? ? Pancreas:? Unremarkable.? ? Spleen:? Unremarkable.? ? Adrenal Glands:? Unremarkable.? ? Kidneys and Ureters:? Unremarkable.? ? ? Stomach and Bowel:? There are prominently dilated fluid-filled loops of small bowel extending within the abdomen pelvis with greatest AP dimension measuring approximately 3.5 cm.? The colon is relatively collapsed.? Mild stool is noted within the rectum.? There is fecalization of portions of the small bowel.? A definitive transition point is not identified.? Peritoneum:? No abnormal intraperitoneal fluid.? No free air.? ? Ventral Wall: ? Trace fat containing ventral hernia. Abdominal Nodes:? No retroperitoneal or mesenteric adenopathy by size criteria.? Vessels:? Aorta and inferior vena cava are normal in size.? Atherosclerotic aortic disease is noted. ? PELVIS: Pelvic Organs:? Prostate gland is enlarged. Bladder:? Unremarkable.? ? Pelvic Nodes: No enlarged lymph nodes.? Miscellaneous: No inguinal hernias are seen. ? ? ? Bones:? Multilevel degenerative changes are present within the thoracolumbar spine. ? ? IMPRESSION:? ? Prominently dilated fluid-filled loops of bowel as described above most consistent with significant partial small bowel obstruction.? Overall appearance is progressive compared to prior exam. ? ? Dictated by: Caitlin Duval M.D. on 12/07/2021 at 20:34 ? ? Approved by: Caitlin Duval M.D. on 12/07/2021 at 20:38 ? Discharge Plan Departure Patient Disposition: Admitted As Inpatient Clinical Impression: Small bowel obstruction Admit Date/Time: 12/07/21 22:17 Admit Provider: Tristan Potter
[2021-12-07 18:49] LABS: Add Manual Diff / Slide Review NO; Basophils Absolute Auto 100 /uL (0-100); Basophils Percent Auto 0.6 % (0-2); Eosinophils Absolute Auto 0 /uL (0-450); Eosinophils Percent Auto 0.1 % (2-4); Hematocrit 46.1 % (41-53); Hemoglobin 15.5 g/dL (13.5-17.5); Lymphocytes Absolute Auto 1400 /uL (1100-4500); Lymphocytes Percent Auto 8.3 % (25-40); Mean Corpuscular HGB Conc 33.6 % (30-36); Mean Corpuscular Hemoglobin 32.6 PG (26-34); Mean Corpuscular Volume 97.2 fL (80-100); Monocytes Absolute Auto 1300 /uL (0-900); Monocytes Percent Auto 7.6 % (3-14); Neutrophils Absolute Auto 14100 /uL (1500-7000); Neutrophils Percent Auto 83.4 % (50-75); Platelet Count 308 X10^3/uL (150-400); Red Blood Cell Count 4.74 X10^6/uL (4.5-5.9); Red Cell Distribution Width 12.9 % (11.6-14.8); White Blood Cell Count 16.9 X10^3/uL (4.5-11.0)
[2021-12-07 18:57] LABS: Creatine Kinase 122 U/L (55-170)
[2021-12-07] MEDS: LABETALOL 20 MG/4 ML SYRINGE IV (18:57)
[2021-12-07] MEDS: ONDANSETRON 4 MG/2 ML INJ IV (18:58)
[2021-12-07 18:59] LABS: Alanine Aminotransferase 26 IU/L (<50); Albumin Globulin Ratio 1.2 (1.0-2.8); Alkaline Phosphatase 78 U/L (38-126); Aspartate Aminotransferase 45 IU/L (17-59); BUN Creatinine Ratio 20.5 (6-22); Bilirubin Total 0.6 mg/dL (0.2-1.3); Blood Urea Nitrogen 15 mg/dL (9-20); Calcium 10.7 mg/dL (8.4-10.2); Carbon Dioxide 29 mmol/L (22-32); Chloride 98 mmol/L (98-107); Estimated Glomerular Filt Rate > 60.0 mL/min (>60); Globulin 4.1 g/dL (1.7-4.1); Glucose 172 mg/dL (80-110); Lipase 71 U/L (23-300); Potassium 3.8 mmol/L (3.4-5.1); Sodium 137 mmol/L (137-145); Total Protein 9.1 g/dL (6.3-8.2)
[2021-12-07 19:10] LABS: Troponin I 0.014 ng/mL (0.01-0.034)
[2021-12-07 19:13] LABS: CKMB % Relative Index 2.3 % (1.5-5.0); Creatine Kinase MB 2.85 ng/mL (<2.37)
[2021-12-07 19:23] LABS: HEMOLYSIS 61 (0-50)
[2021-12-07] MEDS: MORPHINE 4 MG/ML INJ IV (19:27)
--- NOTE | 2021-12-07 19:52 | DI.CT.S_ITS ---
PROCEDURE: CT ABDOMEN PELVIS W CON INDICATIONS: pain, vomiting TECHNIQUE: After the administration of IV contrast, axial sections were acquired from the lung bases to the pubic symphysis. Coronal and sagittal reformats were performed. For radiation dose reduction, the following was used: automated exposure control, adjustment of mA and/or kV according to patient size. COMPARISON: [facility], , US ABDOMEN LIMITED, 12/07/2021, 19:11. [facility], US, US ABDOMEN LIMITED, 11/11/2021, 20:23. [facility], CT, CT ABDOMEN PELVIS W CON, 11/11/2021, 18:02. FINDINGS: Image quality: Excellent. Lung bases: Emphysematous changes are present within the lungs bilaterally. Heart: No significant findings. ABDOMEN: Liver: Hepatic steatosis is present. Gallbladder: Unremarkable. Biliary ducts: Unremarkable. Pancreas: Unremarkable. Spleen: Unremarkable. Adrenal Glands: Unremarkable. Kidneys and Ureters: Unremarkable. Stomach and Bowel: There are prominently dilated fluid-filled loops of small bowel extending within the abdomen pelvis with greatest AP dimension measuring approximately 3.5 cm. The colon is relatively collapsed. Mild stool is noted within the rectum. There is fecalization of portions of the small bowel. A definitive transition point is not identified. Peritoneum: No abnormal intraperitoneal fluid. No free air. Ventral Wall: Trace fat containing ventral hernia. Abdominal Nodes: No retroperitoneal or mesenteric adenopathy by size criteria. Vessels: Aorta and inferior vena cava are normal in size. Atherosclerotic aortic disease is noted. PELVIS: Pelvic Organs: Prostate gland is enlarged. Bladder: Unremarkable. Pelvic Nodes: No enlarged lymph nodes. Miscellaneous: No inguinal hernias are seen. Bones: Multilevel degenerative changes are present within the thoracolumbar spine. IMPRESSION: Prominently dilated fluid-filled loops of bowel as described above most consistent with significant partial small bowel obstruction. Overall appearance is progressive compared to prior exam. Dictated by: Caitlin Duval M.D. on 12/07/2021 at 20:34 Approved by: Caitlin Duval M.D. on 12/07/2021 at 20:38
[2021-12-07] MEDS: SODIUM CHLORIDE 0.9% 500 ML 1000 ML IV (20:29)
--- NOTE | 2021-12-07 20:33 | PC.NURSE ---
10 mg labetalol given at 1910. chica for 10 + 10 dose per MD.
--- NOTE | 2021-12-07 21:44 | DI.RAD.S_ITS ---
PROCEDURE: XR KUB INDICATIONS: NG tube placement TECHNIQUE: One view of the abdomen acquired. COMPARISON: None. FINDINGS: Surgical changes and devices: Nasogastric tube is been placed in appropriate position projecting below the left hemidiaphragm. Bowel: Bowel gas pattern demonstrates markedly dilated loops of bowel. Soft tissues: No suspicious abdominal calcifications. Visualized solid organ contours appear normal in size. Bones: No suspicious bony lesions. IMPRESSION: Nasogastric tube is above. Unchanged appearance of prominent small bowel obstruction. Dictated by: Caitlin Duval M.D. on 12/07/2021 at 22:30 Approved by: Caitlin Duval M.D. on 12/07/2021 at 22:30
[2021-12-07 22:27] LABS: COVID19 -Nasal RAPID Negative (Negative)
--- NOTE | 2021-12-07 22:37 | P.HP_ITS ---
History of Present Illness History of Present Illness Chief complaint: ABD pain / nausea Narrative: Mr. Antonio is a 76M with PMH HTN, GERD who presents with abdominal pain. He notes a long history of years of feeling right upper quadrant discomfort. He sometimes feels that that area becomes distended and then improves after a few hours. However over the last day his pain was much more severe than previously. He had nausea, vomiting which are not normal symptoms previously. He notes pain that improves when he is still. He did have multiple soft, but formed bowel movements today. He has no fevers/chills. He has has never had an EGD. He denies unintentional weight loss, he does have a previous weight of 183lb a few years ago, and is now at 170lb, which he says is intentional. In the ED workup was done, vitals notable for heart rate in the 90s, respiratory rate in the 20s. Blood pressure systolic greater than 200. Labs notable for WBC 16.9, creatinine 0.73, calcium 10.7. Abdominal ultrasound showed gallbladder sludge, CT abdomen shows prominent dilated fluid filled loops of bowel. He had an NG tube placed with significant brown liquid removed. He was admitted for further treatment. Family history: Mother with colon cancer Patient History Medical History Elevated blood pressure reading without diagnosis of hypertension GERD (gastroesophageal reflux disease) Localized swelling, mass and lump, left lower limb (08/12/19) Surgical History History of excision of pilonidal cyst (~1969) Family & Social History Social History: household members none Tobacco & Substance use: Smoking Status Former smoker alcohol intake frequency holiday/special occasion Substance Use Type does not use Meds Home Medications and Allergies Home Medications Medication Instructions Recorded Confirmed Type aspirin 81 mg tablet,delayed 81 mg PO DAILY 08/14/19 09/25/19 History release multivitamin 1 cap PO DAILY 08/14/19 09/25/19 History omeprazole 20 mg capsule,delayed 20 mg PO Q OTHER DAY 08/14/19 09/25/19 History release lisinopril 10 mg tablet 10 mg PO DAILY 09/25/19 09/25/19 History simvastatin 10 mg tablet 10 mg PO QPM 09/25/19 09/25/19 History Allergies Allergy/AdvReac Type Severity Reaction Status Date / Time No Known Drug Allergies Allergy Verified 11/11/21 15:45 Review of Systems Review of Systems Narrative: 14 systems reviewed and negative aside from what is noted in HPI Exam Vital Signs (past 8 hours): - 12/07/21 18:24 12/07/21 18:27 12/07/21 18:30 Temperature 97.8 F Pulse Rate 98 H 96 H Respiratory Rate 22 Blood Pressure Pulse Oximetry 100 96 94 12/07/21 18:39 12/07/21 18:40 12/07/21 18:41 Temperature Pulse Rate 88 88 85 Respiratory Rate 23 22 Blood Pressure 260/134 H 258/133 H 258/135 H Pulse Oximetry 95 96 97 12/07/21 18:45 12/07/21 18:54 12/07/21 18:57 Temperature Pulse Rate 85 73 73 Respiratory Rate 26 H 25 H Blood Pressure 199/111 H 258/148 H Pulse Oximetry 96 95 12/07/21 19:00 12/07/21 19:08 12/07/21 19:09 Temperature Pulse Rate 72 71 72 Respiratory Rate 24 27 H 29 H Blood Pressure 251/116 H 225/118 H Pulse Oximetry 97 97 96 12/07/21 19:14 12/07/21 19:15 12/07/21 19:30 Temperature Pulse Rate 76 74 72 Respiratory Rate 26 H 26 H 18 Blood Pressure 223/120 H 233/108 H 217/100 H Pulse Oximetry 96 97 94 12/07/21 19:45 12/07/21 20:00 12/07/21 20:23 Temperature Pulse Rate 68 68 78 Respiratory Rate 32 H 17 Blood Pressure 215/105 H 214/108 H Pulse Oximetry 99 98 97 12/07/21 20:27 12/07/21 20:30 12/07/21 20:45 Temperature Pulse Rate 75 75 75 Respiratory Rate 16 27 H Blood Pressure 214/108 H Pulse Oximetry 97 96 12/07/21 21:00 12/07/21 21:15 12/07/21 21:30 Temperature Pulse Rate 80 84 87 Respiratory Rate 26 H 39 H 26 H Blood Pressure Pulse Oximetry 97 12/07/21 21:45 12/07/21 22:00 12/07/21 22:12 Temperature Pulse Rate 86 90 85 Respiratory Rate 24 24 22 Blood Pressure 223/110 H Pulse Oximetry Oxygen Delivery Method Room Air Narrative Exam Narrative: GEN: no acute distress HEENT: NG tube in in place, PERRL, dry mucous membranes NECK: trachea midline, no jvd CV: regular rate and rhythm, no murmurs PULM: clear bilaterally, no wheezes, rhonchi, rales ABD: soft, nontender, nondistended, no organomegaly EXT: warm and well perfused with no edema NEURO: awake, alert, oriented, no focal deficits PSYCH: pleasant, cooperative Objective Labs Result Diagrams: 12/07/21 18:37 12/07/21 18:37 Labs: Laboratory Results - last 24 hr 12/07/21 12/07/21 12/07/21 18:37 18:37 18:37 WBC 16.9 H RBC 4.74 Hgb 15.5 Hct 46.1 MCV 97.2 MCH 32.6 MCHC 33.6 RDW 12.9 Plt Count 308 Neut % (Auto) 83.4 H Lymph % (Auto) 8.3 L [place] % (Auto) 7.6 Eos % (Auto) 0.1 L Baso % (Auto) 0.6 Neut # (Auto) 30758 H Lymph # (Auto) 1400 [place] # (Auto) 1300 H Eos # (Auto) 0 Baso # (Auto) 100 Sodium 137 Potassium 3.8 Chloride 98 Carbon Dioxide 29 BUN 15 Creatinine 0.73 Estimated GFR > 60.0 BUN/Creatinine Ratio 20.5 Glucose 172 H Calcium 10.7 H Total Bilirubin 0.6 AST 45 ALT 26 Alkaline Phosphatase 78 Total Creatine Kinase 122 CK-MB (CK-2) 2.85 H CK-MB (CK-2) Rel Index 2.3 Troponin I 0.014 Total Protein 9.1 H Albumin 5.0 Globulin 4.1 Albumin/Globulin Ratio 1.2 Lipase 71 SARS-CoV-2 (PCR) 12/07/21 21:45 WBC RBC Hgb Hct MCV MCH MCHC RDW Plt Count Neut % (Auto) Lymph % (Auto) [place] % (Auto) Eos % (Auto) Baso % (Auto) Neut # (Auto) Lymph # (Auto) [place] # (Auto) Eos # (Auto) Baso # (Auto) Sodium Potassium Chloride Carbon Dioxide BUN Creatinine Estimated GFR BUN/Creatinine Ratio Glucose Calcium Total Bilirubin AST ALT Alkaline Phosphatase Total Creatine Kinase CK-MB (CK-2) CK-MB (CK-2) Rel Index Troponin I Total Protein Albumin Globulin Albumin/Globulin Ratio Lipase SARS-CoV-2 (PCR) Negative Assessment & Plan Assessment & Plan narrative: Mr. Antonio is a 76M who presents with abdominal pain, nausea, vomiting, found to have possible partial small bowel obstruction. 1. Possible partial small bowel obstruction, acute -patient with no history of abdominal surgeries, adhesions less likely -other etiologies include possible infectious or neoplasm vs ileus -CT scan shows dilated small bowel, no mass noted -keep patient npo -consult surgery -IV fluids while NPO -leukocytosis may be stress induced, monitor closely for clinical change to consider starting antibiotics 2. Hypertensive urgency, acute -hold lisinopril while NPO -for now PRN hydralazine for sbp>200 3. Hyperlipidemia -hold statin while npo 4. GERD -hold PPI while npo 5. Mild hypercalcemia -chronic -etiology not clear -could consider question of malignancy in overall presentation -trend calcium daily CODE: Full Proxy: Abigail Franz I have utilized all available resources to reconcile the patient's home medications. Time Spent With Patient Critical Care time: I spent a total of [] minutes of critical care time on this patient's care today; this time is exclusive of procedural time. Quality MIPS - Admit I confirm the patient?s Advance Care Plan is present, Code status is documented, Surrogate decision maker is in patient?s record [If Yes, STOP here]: Yes
[2021-12-08] VITALS (9 sets, daily range): BP systolic 151–225; BP diastolic 74–107; PULSE 80–103; RESP 16–20; TEMP 36.7–37.6; O2SAT 93–97; BMI 21.2
--- NOTE | 2021-12-08 00:07 | DI.RAD.S_ITS ---
PROCEDURE: XR KUB INDICATIONS: NG tube placement TECHNIQUE: One view of the abdomen acquired. COMPARISON: [facility], CR, XR KUB, 12/07/2021, 21:49. FINDINGS: Surgical changes and devices: Nasogastric tube remains projecting below the left hemidiaphragm. Bowel: Bowel gas pattern continues to demonstrate prominent small bowel obstruction. Soft tissues: No suspicious abdominal calcifications. Visualized solid organ contours appear normal in size. Bones: No suspicious bony lesions. IMPRESSION: Nasogastric tube in appropriate position with small bowel obstruction. Dictated by: Caitlin Duval M.D. on 12/08/2021 at 0:31 Approved by: Caitlin Duval M.D. on 12/08/2021 at 0:32
[2021-12-08] MEDS: SODIUM CHLORIDE 0.9% 1,000 ML 125 ML IV ×3 (00:10→17:44)
[2021-12-08] MEDS: HYDRALAZINE 20 MG/ML VIAL 10 MG IV (00:11)
[2021-12-08] MEDS: ONDANSETRON 4 MG/2 ML INJ IV (01:19)
--- NOTE | 2021-12-08 01:35 | PC.NURSE ---
Addendum entered by Manda Sampson R.N. 12/08/21 05:31: BP 155/74 @ 0500. Addendum entered by Manda Sampson R.N. 12/08/21 05:26: NG tube spontaneously came out. Patient stated it just came out. NG tube replaced and xray complete to confirm placement. Original Note: Patient arrived to AC unit at 2230. Alert and oriented x 4, able to make needs known. NG tube placed in ED, on intermittent suction. HOB at 30 degrees. NS @ 125. Patient hypertensive when arriving to floor, BP 225/107. Hydralazine given, BP 199/98. Patient asymptomatic, denies chest pain, shortness of breath, headache, dizziness. Patient NPO. Patient oriented to room, shown how to use call light. Brakes on bed locked and bed in low position.
[2021-12-08 05:16] LABS: Add Manual Diff / Slide Review NO; Basophils Absolute Auto 0 /uL (0-100); Basophils Percent Auto 0.3 % (0-2); Eosinophils Absolute Auto 0 /uL (0-450); Eosinophils Percent Auto 0.1 % (2-4); Hemoglobin 14.1 g/dL (13.5-17.5); Lymphocytes Absolute Auto 600 /uL (1100-4500); Lymphocytes Percent Auto 3.7 % (25-40); Mean Corpuscular HGB Conc 34.3 % (30-36); Monocytes Absolute Auto 900 /uL (0-900); Neutrophils Absolute Auto 13700 /uL (1500-7000); Neutrophils Percent Auto 89.9 % (50-75); Platelet Count 236 X10^3/uL (150-400); Red Blood Cell Count 4.27 X10^6/uL (4.5-5.9); Red Cell Distribution Width 13.1 % (11.6-14.8); White Blood Cell Count 15.2 X10^3/uL (4.5-11.0)
[2021-12-08 05:35] LABS: BUN Creatinine Ratio 20.9 (6-22); Blood Urea Nitrogen 14 mg/dL (9-20); Calcium 9.3 mg/dL (8.4-10.2); Carbon Dioxide 32 mmol/L (22-32); Chloride 104 mmol/L (98-107); Estimated Glomerular Filt Rate > 60.0 mL/min (>60); Glucose 128 mg/dL (80-110); HEMOLYSIS < 15 (0-50); Potassium 4.3 mmol/L (3.4-5.1); Sodium 136 mmol/L (137-145)
[2021-12-08] MEDS: ENOXAPARIN 40 MG/0.4 ML SYRINGE SUBCUT (08:06)
[2021-12-08] MEDS: LACTATED RINGERS 1,000 ML 42 ML IV (12:10)
--- NOTE | 2021-12-08 12:37 | CM.DANOTE ---
Patient is a 76 yo male who was admitted on 12/07/21 for Abd Pain. Pt has MCR for insurance and does not have PCP established at this time. EMR was reviewed. Per MD, pt with likely partial SBO and currently NPO with NG tube. Per Surgeon, recommending Lap Fanta for today and do not anticipate any complications or d/c needs. SW met bedside with pt and explained role and he confirms he lives in a [facility] [place] with very supportive neighbors and friends and his primary contact is his friend Abigail. Pt is independent and active at baseline and drives and denies any hx of HH or SNF. Pt states he secured an district attorney to work on Living Will/DPOA but he does not feel district attorney is competent or helpful so he has plans to try another district attorney to complete this pwk. SW provided him with a copy of medical DPOA brochure and blank copy to review at his convenience. Pt confirms he is no longer established with PCP as his prior PCP Dr. Villafuerte moved. Pt is interested in [facility] PCP list and is agreeable to calling to set up establish care appt soon. Pt does not anticipate any needs at d/c and aware that he will need to be able to tolerate advancing diet and ambulate well and plans to have friend Abigail transport him home. Plan: SW to follow closely after Lap Fanta towards determining any d/c planning needs and confirm pt's plan of home with friend assist. WALLY Alvarenga Discharge Planning/Care Management CM Discharge Assessment Start: 12/08/21 12:32 Freq: Status: Active Protocol: Document 12/08/21 12:32 BF (Rec: 12/08/21 12:37 [id number]) Discharge Planning Assessment Assigned Microbiology Soil Scientist WALYL Blakely DPOA/Assigned Designee Name none, working on getting another district attorney for Living Will/DPOA Advance Directives? No Advance Directives on File No History Provided By Patient,Medical Record Has Patient been admitted in last 30 No days? Prior Living Arrangements Apartment/Condo Household Members none Type of transporation used prior to Drives own vehicle admit Independent with ADL's Yes Is patient alert and oriented? Yes Caregiver for Another No Barriers to Discharge No Discharge Plan Home Referrals Initiated None needed Whiteboard Updated in Patient Room with Yes name and ext. # of Microbiology Soil Scientist Review Status In Process Please Provide Date Initial DC 12/08/21 Assessment Was Performed Next Review Type Continued Stay Review
--- NOTE | 2021-12-08 12:42 | PM.CN ---
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 Pain is in the right upper quadrant, similar to previous episodes, he has associated nausea and diarrhea. CT abdomen pelvis demonstrates dilated loops of small bowel on and gallbladder sludge, the study was read as partial small bowel obstruction. Nasogastric tube was placed with improvement in abdominal distension. Pain in the right upper quadrant remains but is improved since admission. At admission WBC 16 at and afebrile. Patient reports 10 years of intermittent pain in the right upper quadrant typically following fatty meals. On my interpretation of the CT there was sludge within the gallbladder there is no significant wall thickening or pericholecystic fluid. No previous abdominal surgery. Meds Home Medications and Allergies Home Medications Medication Instructions Recorded Confirmed Type aspirin 81 mg tablet,delayed 81 mg PO DAILY 08/14/19 12/07/21 History release multivitamin 1 cap PO DAILY 08/14/19 12/07/21 History omeprazole 20 mg capsule,delayed 20 mg PO Q OTHER DAY 08/14/19 12/07/21 History release lisinopril 10 mg tablet 10 mg PO DAILY 09/25/19 12/07/21 History simvastatin 10 mg tablet 10 mg PO QPM 09/25/19 12/07/21 History Allergies Allergy/AdvReac Type Severity Reaction Status Date / Time No Known Drug Allergies Allergy Verified 11/11/21 15:45 Exam Vital Signs (past 8 hours): - 12/08/21 12:01 Temperature 99.5 F Pulse Rate 103 H Respiratory Rate 16 Blood Pressure 182/90 H Pulse Oximetry 97 Oxygen Delivery Method Room Air Oxygen Flow Rate 0 Narrative Exam Narrative: GENERAL: Elderly male in no apparent distress HEENT: No scleral icterus CV: Regular rate, no peripheral edema LUNGS: No increased work of breathing. Patient speaks in full sentences without oxygen support. ABDOMEN: Positive Ochoa sign, NEURO: Nonfocal, normal strength throughout SKIN: Warm and dry Objective Labs Result Diagrams: 12/08/21 05:00 12/08/21 05:00 Labs: Laboratory Results - last 24 hr 12/07/21 12/07/21 12/07/21 18:37 18:37 18:37 WBC 16.9 H RBC 4.74 Hgb 15.5 Hct 46.1 MCV 97.2 MCH 32.6 MCHC 33.6 RDW 12.9 Plt Count 308 Neut % (Auto) 83.4 H Lymph % (Auto) 8.3 L [place] % (Auto) 7.6 Eos % (Auto) 0.1 L Baso % (Auto) 0.6 Neut # (Auto) 28550 H Lymph # (Auto) 1400 [place] # (Auto) 1300 H Eos # (Auto) 0 Baso # (Auto) 100 Sodium 137 Potassium 3.8 Chloride 98 Carbon Dioxide 29 BUN 15 Creatinine 0.73 Estimated GFR > 60.0 BUN/Creatinine Ratio 20.5 Glucose 172 H Calcium 10.7 H Total Bilirubin 0.6 AST 45 ALT 26 Alkaline Phosphatase 78 Total Creatine Kinase 122 CK-MB (CK-2) 2.85 H CK-MB (CK-2) Rel Index 2.3 Troponin I 0.014 Total Protein 9.1 H Albumin 5.0 Globulin 4.1 Albumin/Globulin Ratio 1.2 Lipase 71 Nasal Screen MRSA (PCR) SARS-CoV-2 (PCR) 12/07/21 12/08/21 12/08/21 21:45 01:30 05:00 WBC 15.2 H RBC 4.27 L Hgb 14.1 Hct 41.0 MCV 96.0 MCH 33.0 MCHC 34.3 RDW 13.1 Plt Count 236 Neut % (Auto) 89.9 H Lymph % (Auto) 3.7 L [place] % (Auto) 6.0 Eos % (Auto) 0.1 L Baso % (Auto) 0.3 Neut # (Auto) 68552 H Lymph # (Auto) 600 L [place] # (Auto) 900 Eos # (Auto) 0 Baso # (Auto) 0 Sodium Potassium Chloride Carbon Dioxide BUN Creatinine Estimated GFR BUN/Creatinine Ratio Glucose Calcium Total Bilirubin AST ALT Alkaline Phosphatase Total Creatine Kinase CK-MB (CK-2) CK-MB (CK-2) Rel Index Troponin I Total Protein Albumin Globulin Albumin/Globulin Ratio Lipase Nasal Screen MRSA (PCR) Negative for mrsa SARS-CoV-2 (PCR) Negative 12/08/21 05:00 WBC RBC Hgb Hct MCV MCH MCHC RDW Plt Count Neut % (Auto) Lymph % (Auto) [place] % (Auto) Eos % (Auto) Baso % (Auto) Neut # (Auto) Lymph # (Auto) [place] # (Auto) Eos # (Auto) Baso # (Auto) Sodium 136 L Potassium 4.3 Chloride 104 Carbon Dioxide 32 BUN 14 Creatinine 0.67 Estimated GFR > 60.0 BUN/Creatinine Ratio 20.9 Glucose 128 H Calcium 9.3 Total Bilirubin AST ALT Alkaline Phosphatase Total Creatine Kinase CK-MB (CK-2) CK-MB (CK-2) Rel Index Troponin I Total Protein Albumin Globulin Albumin/Globulin Ratio Lipase Nasal Screen MRSA (PCR) SARS-CoV-2 (PCR) [facility] Medical History Elevated blood pressure reading without diagnosis of hypertension GERD (gastroesophageal reflux disease) Localized swelling, mass and lump, left lower limb (08/12/19) Surgical History History of excision of pilonidal cyst (~1969) Social History household members: none Tobacco & Substance Use Smoking Status: Former smoker alcohol intake: current Assessment & Plan Assessment & Plan narrative: 76-year-old man admitted to the hospital for ileus secondary to acute cholecystitis. Abdominal CT reviewed demonstrates dilated loops of bowel sludge within the gallbladder he has positive Ochoa sign on examination. Laboratory studies are significant for WBC 15 total bilirubin 0.6 LFTs normal. 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 Recommended that we proceed with a laparoscopic cholecystectomy. Technical details of the operation were discussed with the patient. Operative risks including bleeding, infection, damage to surrounding structures including bile duct, conversion open were discussed. His questions have been answered he is in agreement with this plan will proceed. Time Spent With Patient Critical Care time: I spent a total of [] minutes of critical care time on this patient's care today; this time is exclusive of procedural time.
--- NOTE | 2021-12-08 14:05 | SUR.PREOP ---
surgery has been rescheduled to tomorrow. surgeon spoke with patient. agrees with plan.
[2021-12-08] MEDS: MORPHINE 2 MG/ML INJ IV ×2 (14:23→21:07)
--- NOTE | 2021-12-08 15:08 | PC.NURSE ---
NG tube back to int low suction. surgery cancelled today. pt can have sips and chips.
--- NOTE | 2021-12-08 18:12 | P.PN_ITS ---
Subjective Subjective Interval history: Patient reports he's feeling overall better. He denies any issues with the NG tube. Exam Vital Signs (past 8 hours): - 12/08/21 12:01 12/08/21 16:52 Temperature 99.5 F 99.6 F Pulse Rate 103 H 81 Respiratory Rate 16 20 Blood Pressure 182/90 H 189/90 H Pulse Oximetry 97 95 Oxygen Delivery Method Room Air Oxygen Flow Rate 0 Const Other: Patient laying in bed comfortably upon my entering the room, in no apparent, acute distress. HENMT Other: NG tube securely in place. Eyes Other: No scleral icterus appreciated. Resp Other: Lungs clear to auscultation bilaterally. GI Other: Soft, non-distended, RUQ tenderness. Bowel sounds present. Skin Other: No grossly abnormal skin lesions appreciated. Objective Labs Result Diagrams: 12/08/21 05:00 12/08/21 05:00 Labs: Laboratory Results - last 24 hr 12/07/21 12/07/21 12/07/21 18:37 18:37 18:37 WBC 16.9 H RBC 4.74 Hgb 15.5 Hct 46.1 MCV 97.2 MCH 32.6 MCHC 33.6 RDW 12.9 Plt Count 308 Neut % (Auto) 83.4 H Lymph % (Auto) 8.3 L [place] % (Auto) 7.6 Eos % (Auto) 0.1 L Baso % (Auto) 0.6 Neut # (Auto) 83593 H Lymph # (Auto) 1400 [place] # (Auto) 1300 H Eos # (Auto) 0 Baso # (Auto) 100 Sodium 137 Potassium 3.8 Chloride 98 Carbon Dioxide 29 BUN 15 Creatinine 0.73 Estimated GFR > 60.0 BUN/Creatinine Ratio 20.5 Glucose 172 H Calcium 10.7 H Total Bilirubin 0.6 AST 45 ALT 26 Alkaline Phosphatase 78 Total Creatine Kinase 122 CK-MB (CK-2) 2.85 H CK-MB (CK-2) Rel Index 2.3 Troponin I 0.014 Total Protein 9.1 H Albumin 5.0 Globulin 4.1 Albumin/Globulin Ratio 1.2 Lipase 71 Nasal Screen MRSA (PCR) SARS-CoV-2 (PCR) 12/07/21 12/08/21 12/08/21 21:45 01:30 05:00 WBC 15.2 H RBC 4.27 L Hgb 14.1 Hct 41.0 MCV 96.0 MCH 33.0 MCHC 34.3 RDW 13.1 Plt Count 236 Neut % (Auto) 89.9 H Lymph % (Auto) 3.7 L [place] % (Auto) 6.0 Eos % (Auto) 0.1 L Baso % (Auto) 0.3 Neut # (Auto) 93667 H Lymph # (Auto) 600 L [place] # (Auto) 900 Eos # (Auto) 0 Baso # (Auto) 0 Sodium Potassium Chloride Carbon Dioxide BUN Creatinine Estimated GFR BUN/Creatinine Ratio Glucose Calcium Total Bilirubin AST ALT Alkaline Phosphatase Total Creatine Kinase CK-MB (CK-2) CK-MB (CK-2) Rel Index Troponin I Total Protein Albumin Globulin Albumin/Globulin Ratio Lipase Nasal Screen MRSA (PCR) Negative for mrsa SARS-CoV-2 (PCR) Negative 12/08/21 05:00 WBC RBC Hgb Hct MCV MCH MCHC RDW Plt Count Neut % (Auto) Lymph % (Auto) [place] % (Auto) Eos % (Auto) Baso % (Auto) Neut # (Auto) Lymph # (Auto) [place] # (Auto) Eos # (Auto) Baso # (Auto) Sodium 136 L Potassium 4.3 Chloride 104 Carbon Dioxide 32 BUN 14 Creatinine 0.67 Estimated GFR > 60.0 BUN/Creatinine Ratio 20.9 Glucose 128 H Calcium 9.3 Total Bilirubin AST ALT Alkaline Phosphatase Total Creatine Kinase CK-MB (CK-2) CK-MB (CK-2) Rel Index Troponin I Total Protein Albumin Globulin Albumin/Globulin Ratio Lipase Nasal Screen MRSA (PCR) SARS-CoV-2 (PCR) [facility] Medical History Elevated blood pressure reading without diagnosis of hypertension GERD (gastroesophageal reflux disease) Localized swelling, mass and lump, left lower limb (08/12/19) Surgical History History of excision of pilonidal cyst (~1969) Social History household members: none Smoking Status: Former smoker alcohol intake: current Assessment & Plan Assessment & Plan narrative: Mr. Antonio is a 76M who presents with abdominal pain, nausea, vomiting, found to have possible partial small bowel obstruction. 1. Possible partial small bowel obstruction, acute -patient with no history of abdominal surgeries, adhesions less likely -other etiologies include possible infectious or neoplasm vs ileus -CT scan shows dilated small bowel, no mass noted -keep patient npo -consult surgery -IV fluids while NPO -leukocytosis may be stress induced, monitor closely for clinical change to consider starting antibiotics 2. Hypertensive urgency, acute -hold lisinopril while NPO -for now PRN hydralazine for sbp>200 3. Hyperlipidemia -hold statin while npo 4. GERD -hold PPI while npo 5. Mild hypercalcemia -chronic -etiology not clear -could consider question of malignancy in overall presentation -trend calcium daily CODE: Full Proxy: Abigail Franz I have utilized all available resources to reconcile the patient's home medications. Time Spent With Patient Critical Care time: I spent a total of [] minutes of critical care time on this patient's care today; this time is exclusive of procedural time. Quality VTE Deep Vein Thrombosis/Pulmonary Embolism Present on Admission: No MIPS - Admit I confirm the patient?s Advance Care Plan is present, Code status is documented, Surrogate decision maker is in patient?s record [If Yes, STOP here]: Yes
[2021-12-09] VITALS (15 sets, daily range): BP systolic 133–221; BP diastolic 61–110; PULSE 16–103; RESP 12–18; TEMP 36.6–37.5; O2SAT 92–97; BMI 21.2
--- NOTE | 2021-12-09 | PATH_ITS ---
[facility] Accession Number: [id number] . 01 Material submitted: . gallbladder - GALLBLADDER . 02 Diagnosis: Gallbladder, Cholecystectomy: Chronic cholecystitis. No calculi identified. Negative for dysplasia and malignancy. [facility] 12/13/2021 1524 Local . 02 Electronically signed: . Cheli Marley MD, Pathologist NPI- [id number] . 01 Gross description: . Received in formalin, labeled with the patient's name and gallbladder is an 8.0 x 4.0 x 3.5 cm gallbladder, clip at cystic duct margin, margin inked blue, cystic duct patient. No calculi identified within specimen or container. The mucosa is green, velvety, wall thickness up to 0.2 cm. Window Cutter sections submitted. . Summary of Sections: A1. Gallbladder, cystic duct margin, five pieces. ([id number]) /MRV 12/10/2021 1046 Local . 02 Pathologist provided ICD-10: K81.1 . 02 CPT . 199011 Performed at: 01 [facility] [address], [place], [place] [id number] MD Chin Holliday MD Phone: [phone] Performed at: 02 [facility] [address] [place], [place] [id number] MD Cheli Marley MD Phone: [phone]
[2021-12-09] MEDS: HYDRALAZINE 20 MG/ML VIAL 10 MG IV (00:58)
[2021-12-09] MEDS: SODIUM CHLORIDE 0.9% 1,000 ML 125 ML IV (01:01)
[2021-12-09] MEDS: LACTATED RINGERS 1,000 ML 42 ML IV (07:17)
--- NOTE | 2021-12-09 07:38 | SUR.HOLD ---
12/09/2021-7:38 am- Dr Hawkins aware of lovenox yesterday. Pt has NGT -tylenol held. Dr Hawkins will give IV in OR. 07:40-Dr Herzog here-added name to consent & patient signed initials.
--- NOTE | 2021-12-09 07:41 | PM.PREOP ---
Pre-operative Note COVID-19 COVID-19 status: Negative Result date/Date tested (Pos, Neg/Pending): 12/08/21 Criteria for continued procedure: Expected advancement of disease process, Possibility delay results in more complex future surgery or treatment and Continuing or worsening of significant or severe pain Interval Note History & Physical reviewed/Exam performed by Physician: Yes Changes to H&P: No ASA Class (for procedural sedation): II
[2021-12-09] MEDS: CEFAZOLIN 2 GM/20 ML SYRINGE IV (07:58)
--- NOTE | 2021-12-09 08:25 | SUR.OPER ---
Supine on padded OR bed, head on pillow, safety belt at thigh, left arm padded and tucked at side. Right arm secured on padded arm board <90 degrees abduction. Legs uncrossed. Padded footboard in place. Tape over blanket to secure lower legs. Gel pad placed under bilateral heels.
[2021-12-09] MEDS: ACETAMINOPHEN IV 1,000 MG/100 ML VIAL 400 MG IV (08:34)
[2021-12-09] MEDS: BUPIVACAINE 0.5% (PF) VIAL 20 ML INJ (08:36)
[2021-12-09] MEDS: EPINEPHrine 1 MG/ML 0.2 MG INJ (08:37)
[2021-12-09] MEDS: LIDOCAINE 1% 20 ML INJ (08:38)
--- NOTE | 2021-12-09 09:13 | PM.OP.1 ---
Operative Date/Time/Diagnoses Date of procedure: 12/09/21 Time of procedure: 09:14 Pre-op diagnosis: Symptomatic cholelithiasis Post-op diagnosis: same Procedure & Clinicians Procedure: Laparoscopic cholecystectomy Same procedure as scheduled: Yes Surgeon: Michael Herzog Anesthesia Type: General Operative Notes Procedure in detail: The patient was given preoperative antibiotic. The patient was brought to the operating room, placed on the table in the supine position. General endotracheal anesthesia was induced. The abdomen was prepped and draped. A time-out was performed. We made a 1 cm infraumbilical incision. We dissected down to the base of the umbilical stalk using cautery. We grasped the umbilical stalk with a Yuliet clamp to elevate the abdominal wall. We scored the fascia in the midline with cautery 1 cm. We pierced the peritoneum with a Peon clamp. The Teresa port was placed and the abdomen was insufflated to 15 mmHg. A 5 mm 30 degree laparoscopic was inserted. There was no evidence of any injury from the entry. The bowel appeared normal. Next, we placed 5 mm ports in the subxiphoid position and right upper quadrant at the midclavicular line and anterior axillary line. Patient was then positioned in reverse Trendelenburg and the table was tilted to the left. The gallbladder was grasped at the dome and retracted cephalad. There were some adhesions of mesenteric tissue to the right liver which were carefully dissected with cautery to allow full retraction of the gallbladder. We then dissected the cystic structures with a combination of hook cautery and blunt dissection. We obtained a critical view. We placed hemoclips on the cystic duct and artery and divided the cystic duct and artery sharply between the clips. The gallbladder was then dissected off the liver and placed in a specimen retrieval bag. We irrigated the right upper quadrant and all the aspirate returned clear. We then removed the 5 mm ports under direct vision we removed the Teresa port. We then injected some local into the fascia and closed the fascia with 2 interrupted 0 Vicryl sutures. The skin incisions were closed with 4 Monocryl and Steri-Strips were applied. Band-Aids were applied over the Steri-Strips. EBL: 10 mL Specimen: Gallbladder Post-operative Condition: stable Disposition: PACU
[2021-12-09 12:33] LABS: Add Manual Diff / Slide Review NO; Basophils Absolute Auto 0 /uL (0-100); Basophils Percent Auto 0.3 % (0-2); Eosinophils Absolute Auto 0 /uL (0-450); Hematocrit 40.6 % (41-53); Hemoglobin 13.7 g/dL (13.5-17.5); Lymphocytes Absolute Auto 500 /uL (1100-4500); Lymphocytes Percent Auto 4.4 % (25-40); Mean Corpuscular HGB Conc 33.8 % (30-36); Mean Corpuscular Hemoglobin 32.7 PG (26-34); Mean Corpuscular Volume 96.8 fL (80-100); Monocytes Absolute Auto 500 /uL (0-900); Monocytes Percent Auto 4.4 % (3-14); Neutrophils Absolute Auto 10100 /uL (1500-7000); Neutrophils Percent Auto 90.9 % (50-75); Platelet Count 216 X10^3/uL (150-400); Red Blood Cell Count 4.19 X10^6/uL (4.5-5.9); Red Cell Distribution Width 12.9 % (11.6-14.8); White Blood Cell Count 11.1 X10^3/uL (4.5-11.0)
--- NOTE | 2021-12-09 13:02 | PM.PN.1 ---
Subjective Subjective Interval history: Patient reports feeling well after the laporoscopic cholecystectomy. He denies abd pain, n/v/d. States he's passing gas. He has an appetite, and was able to keep down chicken noodle soup. Denies any active complaints and endorses wanting to go home. Exam Vital Signs (past 8 hours): - 12/09/21 07:15 12/09/21 09:29 12/09/21 09:39 Temperature 99.5 F 99.3 F Pulse Rate 103 H 85 97 H Respiratory Rate 16 13 16 Blood Pressure 183/98 H 158/83 H 133/80 Pulse Oximetry 97 92 95 12/09/21 09:40 12/09/21 09:47 12/09/21 10:00 Temperature 98.4 F 98.3 F Pulse Rate 89 16 L 95 H Respiratory Rate 12 16 16 Blood Pressure 134/73 143/61 H 165/74 H Pulse Oximetry 97 96 95 12/09/21 10:30 12/09/21 11:01 12/09/21 12:01 Temperature 98.5 F 98.5 F 98.3 F Pulse Rate 85 91 H 94 H Respiratory Rate 16 16 18 Blood Pressure 148/70 H 153/72 H 164/77 H Pulse Oximetry 93 93 93 Oxygen Delivery Method Nasal Cannula Oxygen Flow Rate 0 Narrative Exam Narrative: Const Other: Patient laying in bed comfortably upon my entering the room, in no apparent acute distress. HENMT Other: NG tube securely in place. Eyes Other: No scleral icterus appreciated. Resp Other: Lungs clear to auscultation bilaterally. GI Other: Soft, non-distended, slight RUQ tenderness. Bowel sounds present. Bandages over laporoscopic incision sites clean, dry and intact. Skin Other: No grossly abnormal skin lesions appreciated. Objective Labs Result Diagrams: 12/09/21 12:14 12/08/21 05:00 Labs: Laboratory Results - last 24 hr 12/09/21 12:14 WBC 11.1 H RBC 4.19 L Hgb 13.7 Hct 40.6 L MCV 96.8 MCH 32.7 MCHC 33.8 RDW 12.9 Plt Count 216 Neut % (Auto) 90.9 H Lymph % (Auto) 4.4 L [place] % (Auto) 4.4 Eos % (Auto) 0.0 L Baso % (Auto) 0.3 Neut # (Auto) 08491 H Lymph # (Auto) 500 L [place] # (Auto) 500 Eos # (Auto) 0 Baso # (Auto) 0 PFSH Medical History Elevated blood pressure reading without diagnosis of hypertension GERD (gastroesophageal reflux disease) Localized swelling, mass and lump, left lower limb (08/12/19) Surgical History History of excision of pilonidal cyst (~1969) Social History household members: none Smoking Status: Former smoker alcohol intake: current Assessment & Plan Assessment & Plan narrative: Mr. Antonio is a 76M who presents with abdominal pain, nausea, vomiting, likely secondary to ileus from diseases gallbladder 1. Possible partial small bowel obstruction, acute -patient with no history of abdominal surgeries, adhesions less likely -other etiologies include possible infectious or neoplasm vs ileus -CT scan shows dilated small bowel, no mass noted -improved with NG tube decompression 2. 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 Hypertensive urgency, acute, resolved -likely brought on by problems 1 and 2 -improved with initiation of home BP meds 4. Hyperlipidemia -can continue statin 5. GERD -can continue PPI 6. Mild hypercalcemia -chronic, etiology unclear -advised outpatient workup Time Spent With Patient Critical Care time: I spent a total of [] minutes of critical care time on this patient's care today; this time is exclusive of procedural time. Quality VTE Deep Vein Thrombosis/Pulmonary Embolism Present on Admission: No
--- NOTE | 2021-12-09 13:08 | P.DS_ITS ---
History of Present Illness History of Present Illness Chief complaint: ABD pain / nausea Discharge Providers Provider Date of admission: 12/07/21 22:17 Discharge Date: 12/09/21 Primary care physician: Aguila Villafuerte MD Consults: 12/07/21 22:55 Consult to General Surgery Routine Comment: Consulting Provider: Michael Herzog Reason for consultation: partial sbo Has provider been notified: Yes Discharge provider: Viky Traylor MD Summary Hospital Course Discharge Diagnosis: Mr. Antonio is a 76M who presents with abdominal pain, nausea, vomiting, likely to a partial SBO and ileus from a diseased gallbladder. 1. Possible partial small bowel obstruction, acute, resolved with NG tube decompression 2. Diseased gallbladder with likely slow motility, underwent laporoscopic cholecystectomy on Dec 09 3. Hypertensive urgency, acute, resolved 4. Hyperlipidemia 5. GERD 6. Mild, chronic hypercalcemia, unclear etiology Exam Vital Signs (past 8 hours): - 12/09/21 07:15 12/09/21 09:29 12/09/21 09:39 Temperature 99.5 F 99.3 F Pulse Rate 103 H 85 97 H Respiratory Rate 16 13 16 Blood Pressure 183/98 H 158/83 H 133/80 Pulse Oximetry 97 92 95 12/09/21 09:40 12/09/21 09:47 12/09/21 10:00 Temperature 98.4 F 98.3 F Pulse Rate 89 16 L 95 H Respiratory Rate 12 16 16 Blood Pressure 134/73 143/61 H 165/74 H Pulse Oximetry 97 96 95 12/09/21 10:30 12/09/21 11:01 12/09/21 12:01 Temperature 98.5 F 98.5 F 98.3 F Pulse Rate 85 91 H 94 H Respiratory Rate 16 16 18 Blood Pressure 148/70 H 153/72 H 164/77 H Pulse Oximetry 93 93 93 Oxygen Delivery Method Nasal Cannula Oxygen Flow Rate 0 Narrative Exam Narrative: Narrative Exam Narrative: Const Other: Patient laying in bed comfortably upon my entering the room, in no apparent acute distress. HENMT Other: NG tube securely in place. Eyes Other: No scleral icterus appreciated. Resp Other: Lungs clear to auscultation bilaterally. GI Other: Soft, non-distended, slight RUQ tenderness. Bowel sounds present. Bandages over laporoscopic incision sites clean, dry and intact. Skin Other: No grossly abnormal skin lesions appreciated. Objective Labs Result Diagrams: 12/09/21 12:14 12/08/21 05:00 Labs: Laboratory Results - last 24 hr 12/09/21 12:14 WBC 11.1 H RBC 4.19 L Hgb 13.7 Hct 40.6 L MCV 96.8 MCH 32.7 MCHC 33.8 RDW 12.9 Plt Count 216 Neut % (Auto) 90.9 H Lymph % (Auto) 4.4 L [place] % (Auto) 4.4 Eos % (Auto) 0.0 L Baso % (Auto) 0.3 Neut # (Auto) 26349 H Lymph # (Auto) 500 L [place] # (Auto) 500 Eos # (Auto) 0 Baso # (Auto) 0 PFSH Medical History Elevated blood pressure reading without diagnosis of hypertension GERD (gastroesophageal reflux disease) Localized swelling, mass and lump, left lower limb (08/12/19) Surgical History History of excision of pilonidal cyst (~1968) Social History household members: none Smoking Status: Former smoker alcohol intake: current Discharge Assessment & Plan Assessment and Plan Assessment: Mr. Antonio is a 76M who presents with abdominal pain, nausea, vomiting, likely secondary to partial SBO and ileus from a diseased gallbladder. 1. Possible partial small bowel obstruction, acute, resolved with NG tube decompression -patient with no history of abdominal surgeries, adhesions less likely -other etiologies include possible infectious or neoplasm vs ileus -CT scan shows dilated small bowel, no mass noted 2. 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 Hypertensive urgency, acute, resolved -likely brought on by problems 1 and 2 -improved with initiation of home BP meds 4. Hyperlipidemia -can continue statin 5. GERD -can continue PPI 6. Mild hypercalcemia -chronic, etiology unclear -advised outpatient workup Discharge Plan Discharge Plan Patient Disposition: Home Discharge orders & Medications Prescriptions: Continued aspirin 81 mg Tablet,Delayed Release (Dr/Ec) 81 mg PO DAILY 0RF Label Comments: Patient takes Aspirin M-. omeprazole 20 mg Capsule,Delayed Release(Dr/Ec) 20 mg PO Q OTHER DAY 0RF Label Comments: Patient reports he takes medication Monday, Monday and Monday before bed. multivitamin Capsule 1 cap PO DAILY 0RF simvastatin 10 mg Tablet 10 mg PO QPM 0RF Rx Instructions: Refills ran out in June, has not taken since June. lisinopril 10 mg Tablet 10 mg PO DAILY 0RF Label Comments: Refills ran out in June, provider moved, hasn't established new provider. Follow up/Referrals: Aguila Villafuerte MD [Primary Care Provider] - Discharge Data Primary Care Provider: Aguila Villafuerte Quality VTE Deep Vein Thrombosis/Pulmonary Embolism Present on Admission: No
--- NOTE | 2021-12-09 14:03 | PC.NURSE ---
late note: pt post op, denied pain, n/v. incision intact. RA, vss. pt able to tolerate general diet. dc instructions done by Phillip. belongings returned to patient.
--- NOTE | 2021-12-09 14:52 | CM.DPC ---
DCP Discharge Home Per Surgeon, pt tolerated surgical intervention well. Per RN, pt was able to tolerate diet and ambulate and pt medically stable to d/c home today and no identified barriers to d/c or concerns. Pt was given d/c instructions and belongings and was picked up by his friend. Plan: Pt discharged to home via friend POV and no further SW needs at this time. WALLY Alvarenga
== END 2021-12-09 13:40 | disposition home or self-care (01) | DRG 418 ==
LOC: ED 18:20 → ICU 22:19
PROVIDERS: Student in an Organized Health Care Education/Training Program; Surgery; Admitting Provider Internal Medicine; Emergency Provider Emergency Medicine; Family Provider Internal Medicine; PCP Internal Medicine; Referring Provider Emergency Medicine; Visit Provider Internal Medicine
PROC: 0FT44ZZ Resection of Gallbladder, Percutaneous Endoscopic Approach (ICD-10-PCS; CPT 47562; principal; 2021-12-09 07:45)
DX: K80.00 Calculus of gallbladder with acute cholecystitis without obstruction (principal); K56.7 Ileus, unspecified; K56.600 Partial intestinal obstruction, unspecified as to cause; I16.0 Hypertensive urgency; E83.52 Hypercalcemia; E78.5 Hyperlipidemia, unspecified; K21.9 Gastro-esophageal reflux disease without esophagitis; Z87.891 Personal history of nicotine dependence; Z20.822 Contact with and (suspected) exposure to COVID-19
CPT/HCPCS: 36415; 47562; 74018; 74177; 76705; 80048; 80053; 81003; 82550; 82553; 83690; 84484; 85025; 87635; 87797; 93005; 96374; 96375; 99223; 99284; C9803; J0131; J0171; J0330; J0360; J0690; J1100; J1650; J2250; J2270; J2405; J2704; J3010

== ENCOUNTER 2022-01-14 19:36 | Emergency (ER) | payer MEDICARE, SELFPAY ==
[2021-12-07 22:20] VITALS: BMI 21.2
[2022-01-14] VITALS (44 sets, daily range): BP systolic 174–253; BP diastolic 80–171; PULSE 62–123; RESP 11–31; TEMP 37.1; O2SAT 92–98; BMI 21.0
--- NOTE | 2022-01-14 20:28 | ED_ITS ---
HPI - Abdominal Pain General Chief Complaint: Abdominal Pain Stated Complaint: RIGHT SIDE BELLY PAIN Time Seen by Provider: 01/14/22 19:54 Source: patient Mode of arrival: Ambulatory History of Present Illness HPI narrative: 76-year-old male former smoker with history of hypertension and GERD presents with a chief complaint of right upper quadrant pain, abdominal distension, nausea for the past few days. Largely he has been having issues on and off since he was hospitalized in December for a small-bowel obstruction related to cholecystitis. He had a laparoscopic cholecystectomy, bowel obstruction resolved and he was discharged. He has been having episodes on and off in which a painful bulge is noted in his right upper quadrant, he states that with firm pressure he can make it go away but today he has been unable. He has nausea and decreased appetite states that he has been having trouble passing gas. He denies any dysuria, frequency or urgency. He has had no fever or chills. Related Data Home Medications Medication Instructions Recorded Confirmed aspirin 81 mg tablet,delayed 81 mg PO DAILY 08/14/19 12/07/21 release multivitamin 1 cap PO DAILY 08/14/19 12/07/21 omeprazole 20 mg capsule,delayed 20 mg PO Q OTHER DAY 08/14/19 12/07/21 release lisinopril 10 mg tablet 10 mg PO DAILY 09/25/19 12/07/21 simvastatin 10 mg tablet 10 mg PO QPM 09/25/19 12/07/21 Previous Rx's Medication Instructions Recorded lisinopril 10 mg tablet 10 mg PO DAILY #30 tab 01/14/22 simvastatin 10 mg tablet 10 mg PO DAILY #30 tab 01/14/22 Allergies Allergy/AdvReac Type Severity Reaction Status Date / Time No Known Drug Allergies Allergy Verified 01/14/22 19:54 Review of Systems Review of Systems Narrative: GENERAL: See HPI HEENT: Denies sinus pain, ear pain, sore throat, difficulty swallowing, dizziness. RESPIRATORY: Denies dyspnea, cough, wheezing, hemoptysis, sputum. CARDIOVASCULAR: Denies chest pain, palpitations, orthopnea, edema, GASTROINTESTINAL: See HPI : Denies dysuria, frequency, incontinence, hematuria, urinary retention. MUSCULOSKELETAL: denies weakness, joint pain, or bony pain SKIN: Denies rash, skin lesions, or other NEUROLOGIC: Denies weakness, headache, numbness, change in speech, confusion, seizures, incoordination. PSYCHIATRIC: No concerning psychosocial issues. 12 point review of systems is negative except for those stated above Patient History Medical History Elevated blood pressure reading without diagnosis of hypertension GERD (gastroesophageal reflux disease) Localized swelling, mass and lump, left lower limb (08/12/19) Surgical History History of excision of pilonidal cyst (~1969) Social History household members: none Smoking Status: Former smoker alcohol intake: current Smoking Status: Former smoker alcohol intake frequency: holidays/special occasions only Substance Use Type: does not use Exam Narrative Exam Narrative: GENERAL: [76 year old patient appears stated age. Well-developed patient, in mild distress. Rubbing his abdomen HEAD: Atraumatic. Normocephalic. EYES: Pupils equal round and reactive. Extraocular motions intact. No scleral icterus. No injection or drainage. ENT: Nose without bleeding, purulent drainage. Throat without erythema, ton sillar hypertrophy or exudate. Airway patent. NECK: Trachea midline. Non tender CARDIOVASCULAR: Regular rate and rhythm without murmurs, gallops, or rubs. RESPIRATORY: Clear to auscultation. Breath sounds equal bilaterally. No wheezes, rales, or rhonchi. GASTROINTESTINAL: Abdomen tender, mildly distended with a palpable hernia and right upper quadrant. Decreased bowel sounds noted EXTREMITIES: No edema or joint tenderness. BACK: Nontender without deformity or crepitance. No flank tenderness. NEURO: AOx3. SKIN: No rash or erythema of visible areas Initial Vital Signs Initial Vital Signs: Vital Signs Temperature 98.8 F 01/14/22 19:49 Pulse Rate 123 H 01/14/22 19:49 Respiratory Rate 16 01/14/22 19:49 Blood Pressure 250/132 H 01/14/22 19:49 Pulse Oximetry 97 01/14/22 19:49 Course Course Course Narrative: Firm pressure placed on hernia and relatively quickly it was reduced. The patient experienced a significant and near immediate improvement in symptoms. Over the course of the visit he began passing gas, his distension and improved, pain was controlled and he was tolerating orals. I discussed the case with on- call General surgery we sure the opinion that with reduction of his hernia and resolution of symptoms he is appropriate for discharge with detailed return precautions. Orders Ordered: ED Orders 01/14/22 20:52 XR acute abdomen series Stat 01/14/22 21:05 COVID19 -Nasal swab/Pre-Proc Stat 01/14/22 22:03 CT abdomen pelvis w con Stat 01/14/22 22:25 Blood Culture Stat Discontinued Medications Hydrocodone Bitart/Acetaminophen (Hydrocodone/Acet 5/325 Prepack) 1 bottle MISC SEEINSTR ONE Stop: 01/14/22 23:26 Last Admin: 01/14/22 23:45 Dose: 1 bottle Documented by: MAYELA Lactated Ringer's (Lactated Ringers) 1,000 mls @ 1,000 mls/hr IV BOLUS ONE Stop: 01/14/22 21:32 Last Infusion: 01/14/22 22:13 Dose: 1,000 mls/hr Documented by: Admin: 01/14/22 20:52 Dose: 1,000 mls/hr Documented by: MAYELA Labetalol HCl (Labetalol 20 Mg/4 Ml Syringe) 10 mg IV NOW ONE Stop: 01/14/22 20:34 Last Admin: 01/14/22 20:53 Dose: 10 mg Documented by: MAYELA Labetalol HCl (Labetalol 20 Mg/4 Ml Syringe) 20 mg IV NOW ONE Stop: 01/14/22 22:08 Last Admin: 01/14/22 22:11 Dose: 20 mg Documented by: MAYELA Ondansetron HCl (Ondansetron 4 Mg/2 Ml Inj) 4 mg IV NOW ONE Stop: 01/14/22 20:52 Last Admin: 01/14/22 20:58 Dose: 4 mg Documented by: MAYELA Ondansetron HCl (Ondansetron 4 Mg Odt Prepack) 1 bottle MISC SEEINSTR ONE Stop: 01/14/22 23:26 Last Admin: 01/14/22 23:45 Dose: 1 bottle Documented by: MAYELA Vital Signs Vital signs: Vital Signs - 8 hr 01/14/22 21:50 01/14/22 21:55 01/14/22 22:00 Pulse Rate 87 84 85 Respiratory Rate 16 21 11 L Blood Pressure 209/102 H 202/102 H 191/104 H Pulse Oximetry 97 98 96 01/14/22 22:06 01/14/22 22:10 01/14/22 22:11 Pulse Rate 110 H 92 H 90 Respiratory Rate 29 H 16 Blood Pressure 237/171 H 228/104 H 225/101 H Pulse Oximetry 95 96 01/14/22 22:15 01/14/22 22:16 01/14/22 22:20 Pulse Rate 83 82 81 Respiratory Rate 17 16 17 Blood Pressure 203/80 H 201/87 H Pulse Oximetry 98 97 95 01/14/22 22:25 01/14/22 22:30 01/14/22 22:45 Pulse Rate 80 81 85 Respiratory Rate 17 17 17 Blood Pressure Pulse Oximetry 97 95 97 01/14/22 22:56 01/14/22 22:57 01/14/22 22:59 Pulse Rate 82 82 81 Respiratory Rate 18 22 Blood Pressure 191/94 H 191/94 H 191/94 H Pulse Oximetry 95 96 01/14/22 23:00 01/14/22 23:05 01/14/22 23:10 Pulse Rate 80 82 83 Respiratory Rate 15 23 20 Blood Pressure 189/95 H 186/101 H 206/106 H Pulse Oximetry 96 95 95 01/14/22 23:15 01/14/22 23:20 01/14/22 23:25 Pulse Rate 82 82 83 Respiratory Rate 13 17 14 Blood Pressure 184/103 H 184/100 H 174/97 H Pulse Oximetry 95 95 96 01/14/22 23:30 01/14/22 23:35 01/14/22 23:40 Pulse Rate 82 84 84 Respiratory Rate 23 23 24 Blood Pressure 190/104 H 187/104 H 206/99 H Pulse Oximetry 94 95 92 01/14/22 23:45 01/14/22 23:50 Pulse Rate 82 82 Respiratory Rate 31 H 19 Blood Pressure 200/98 H 201/106 H Pulse Oximetry 95 96 MDM - Abdominal Pain Lab Data Result diagrams: 01/14/22 19:48 01/14/22 19:48 Labs: Lab Results 01/14/22 01/14/22 01/14/22 Range/Units 19:45 19:48 19:48 WBC 9.8 (4.5-11.0) X10^3/uL RBC 4.59 (4.5-5.9) X10^6/uL Hgb 15.2 (13.5-17.5) g/dL Hct 44.5 (41-53) % MCV 96.9 (80-100) fL MCH 33.0 (26-34) PG MCHC 34.1 (30-36) % RDW 13.3 (11.6-14.8) % Plt Count 246 (150-400) X10^3/uL Neut % (Auto) 78.0 H (50-75) % Lymph % (Auto) 9.4 L (25-40) % [place] % (Auto) 9.2 (3-14) % Eos % (Auto) 0.3 L (2-4) % Baso % (Auto) 3.1 H (0-2) % Neut # (Auto) 7600 H (6910-2232) /uL Lymph # (Auto) 900 L (6590-0269) /uL [place] # (Auto) 900 (0-900) /uL Eos # (Auto) 0 (0-450) /uL Baso # (Auto) 300 H (0-100) /uL Sodium 139 (137-145) mmol/L Potassium 3.4 (3.4-5.1) mmol/L Chloride 105 (98-107) mmol/L Carbon Dioxide 29 (22-32) mmol/L BUN 14 (9-20) mg/dL Creatinine 0.75 (0.66-1.25) mg/dL Estimated GFR > 60.0 (>60) mL/min BUN/Creatinine Ratio 18.7 (6-22) Glucose 104 (80-110) mg/dL Lactate 1.2 (0.7-2.1) mmol/L Calcium 10.6 H (8.4-10.2) mg/dL Total Bilirubin 0.5 (0.2-1.3) mg/dL AST 36 (17-59) IU/L ALT 24 (<50) IU/L Alkaline Phosphatase 78 (38-126) U/L Total Protein 8.8 H (6.3-8.2) g/dL Albumin 4.9 (3.5-5.0) g/dL Globulin 3.9 (1.7-4.1) g/dL Albumin/Globulin Ratio 1.3 (1.0-2.8) Lipase 91 (23-300) U/L SARS-CoV-2 (PCR) (Negative) 01/14/22 Range/Units 21:05 WBC (4.5-11.0) X10^3/uL RBC (4.5-5.9) X10^6/uL Hgb (13.5-17.5) g/dL Hct (41-53) % MCV (80-100) fL MCH (26-34) PG MCHC (30-36) % RDW (11.6-14.8) % Plt Count (150-400) X10^3/uL Neut % (Auto) (50-75) % Lymph % (Auto) (25-40) % [place] % (Auto) (3-14) % Eos % (Auto) (2-4) % Baso % (Auto) (0-2) % Neut # (Auto) (6632-1940) /uL Lymph # (Auto) (8589-4464) /uL [place] # (Auto) (0-900) /uL Eos # (Auto) (0-450) /uL Baso # (Auto) (0-100) /uL Sodium (137-145) mmol/L Potassium (3.4-5.1) mmol/L Chloride (98-107) mmol/L Carbon Dioxide (22-32) mmol/L BUN (9-20) mg/dL Creatinine (0.66-1.25) mg/dL Estimated GFR (>60) mL/min BUN/Creatinine Ratio (6-22) Glucose (80-110) mg/dL Lactate (0.7-2.1) mmol/L Calcium (8.4-10.2) mg/dL Total Bilirubin (0.2-1.3) mg/dL AST (17-59) IU/L ALT (<50) IU/L Alkaline Phosphatase (38-126) U/L Total Protein (6.3-8.2) g/dL Albumin (3.5-5.0) g/dL Globulin (1.7-4.1) g/dL Albumin/Globulin Ratio (1.0-2.8) Lipase (23-300) U/L SARS-CoV-2 (PCR) Negative (Negative) Imaging Data CT scan - abdomen/pelvis: Radiologist's Impression: [place] [id number] CT Scan Report Signed Patient: Aguila Antonio MR#: [id number] : 1945 Acct:[id number] Age/Sex: 76 / M Date of Service: 01/14/22 Loc: ED Accession Number: [id number] ?? Procedure: CT abdomen pelvis w con Ordering Provider: Napoleon Vargas D.O. PROCEDURE:? CT ABDOMEN PELVIS W CON ? INDICATIONS:? abdominal pain, hernia, bowel obstruction, per surgery ? TECHNIQUE:? After the administration of intravenous contrast, axial sections acquired from the lung bases to the pubic symphysis.? Coronal and sagittal reformats were performed.? For radiation dose reduction, the following was used:? automated exposure control, adjustment of mA and/or kV according to patient size.? ? COMPARISON:? [facility], CR, XR ACUTE ABDOMEN SERIES, 01/14/2022, 20:49.? [facility], CT, CT ABDOMEN PELVIS W CON, 12/07/2021, 20:14.? [facility], CT, CT ABDOMEN PELVIS W CON, 11/11/2021, 18:02. ? FINDINGS:? Image quality:? Excellent.? ? Lung bases:? Unremarkable. Heart:? No significant findings. ? ABDOMEN: Liver:? Unremarkable.? ? Gallbladder:? Status post cholecystectomy. Biliary ducts:? Unremarkable.? ? Pancreas:? Unremarkable.? ? Spleen:? Unremarkable.? ? Adrenal Glands:? Unremarkable.? ? Kidneys and Ureters:? Unremarkable.? ? ? Stomach and Bowel:? Moderate to large volume of stool is seen in the rectum, cecum, and transverse colon.? Normal appendix.? Nonspecific air-filled loops of small and large bowel are seen with relatively uniform level on sagittal images.? Bowel wall thickening and hyperenhancement is seen involving a few intermediate length segments of small bowel within the central abdomen.? Small hiatal hernia. Peritoneum:? No abnormal intraperitoneal fluid.? No free air.? ? Ventral Wall: ? Tiny fat containing periumbilical hernia. Abdominal Nodes:? No retroperitoneal or mesenteric adenopathy by size criteria.? Vessels:? Aorta and inferior vena cava are normal in size.? Moderate aortic atherosclerotic calcifications. ? PELVIS: Pelvic Organs:? Prostate is enlarged. Bladder:? Unremarkable.? ? Pelvic Nodes: No enlarged lymph nodes.? Miscellaneous:? Small right spermatic cord lipoma.? No inguinal hernia is seen. ? Bones:? Degenerative changes are seen in the spine. ? ? IMPRESSION:? 1. Intermediate length segments of wall thickening are seen within a few small bowel loops in the central abdomen, suspicious for a nonspecific enteritis. 2. Nondilated air-filled loops of small and large bowel are seen with relatively stable air-fluid level across the abdomen, suggestive of possible ileus. 3. Moderate to large volume of stool within the ascending and transverse colon and the rectum. 4. Prostatomegaly.? ? ? Dictated by: Bradford Webber M.D. on 01/14/2022 at 22:47 ? ? Approved by: Bradford Webber M.D. on 01/14/2022 at 22:54 ? ECG Data Interpretation: Launch?[place] [address] XRay Report Signed Patient: Aguila Antonio MR#: [id number] : 1945 Acct:[id number] Age/Sex: 76 / M Date of Service: 01/14/22 Loc: ED Accession Number: [id number] ?? Procedure: XR acute abdomen series Ordering Provider: Napoleon Vargas D.O. PROCEDURE:? XR ACUTE ABDOMEN SERIES ? INDICATIONS:? Abdominal pain, possible obstruction ? TECHNIQUE:? One view chest and two views of the abdomen were acquired.? ? COMPARISON:? None. ? FINDINGS:? ? Surgical changes and devices:? None.? ? Chest:? Lungs are clear.? Heart size is normal.? No pleural effusions.? Gas abutting the undersurface of the diaphragm appears to be within loops of bowel.? No definite free air is seen.? ? Abdomen:? Mildly dilated air-filled loops of small bowel are seen throughout the abdomen with multiple air-fluid levels on upright view, suspicious for small bowel obstruction versus possibly ileus.? A moderate to large amount of stool is seen in the colon.? Visualized solid organ contours appear normal.? ? Bones:? No suspicious bony lesions.? Multilevel degenerative changes in the spine. ? IMPRESSION:? Mildly dilated air-filled loops of small bowel throughout the abdomen with air-fluid levels is suspicious for small bowel obstruction versus possibly ileus.? Moderate to large amount of stool in the colon.? No definite pneumoperitoneum. ? ? Dictated by: Bradford Webber M.D. on 01/14/2022 at 21:29 ? ? Approved by: Bradford Webber M.D. on 01/14/2022 at 21:3 MDM Narrative Medical decision making narrative: Multiple etiologies for patient's symptoms considered including: [Incarcerated hernia versus bowel obstruction versus other. Patient's symptoms improved over duration of stay with above-stated therapies, particularly after reduction hernia Findings and discharge diagnosis discussed with patient/family followed by verbalization of understanding Return precautions discussed with patient/family whom verbalize understanding. Discharge Plan Departure Patient Disposition: Home Clinical Impression: Hernia, incisional Instructions: DI for Abdominal Pain-Adult Activity Restrictions/Additional Instructions: *You have been diagnosed with [right upper quadrant incisional hernia with resolved bowel obstruction *What to do: *Please continue to take your regular medications as directed. [ x] New medication prescriptions sent to your pharmacy: [[facility] ] [ ] New medication written as a paper prescription [ ] No new medications given *Please follow up with your primary care provider in 2-3 days, call for an appointment. Let them know you were seen in the Emergency Department and that we ask that you be seen in follow up. We will electronically transmit a record of today's note if your PCP is in our system *If you do not have a primary care provider please contact the [facility] Resource line at [phone]. They will ask some questions about your medical history and help get you set up with a doctor in the community. *Return to Emergency Department if you should have any new, worsening or concerning symptoms, such as [fever greater than 101 F, shaking chills, wor sening pain, persistent vomiting or other bothersome symptoms] Prescriptions: New lisinopril 10 mg tablet 10 mg PO DAILY Qty: 30 0RF simvastatin 10 mg tablet 10 mg PO DAILY Qty: 30 0RF No Action aspirin 81 mg Tablet,Delayed Release (Dr/Ec) 81 mg PO DAILY 0RF Label Comments: Patient takes Aspirin -. omeprazole 20 mg Capsule,Delayed Release(Dr/Ec) 20 mg PO Q OTHER DAY 0RF Label Comments: Patient reports he takes medication Monday, Monday and Monday before bed. multivitamin Capsule 1 cap PO DAILY 0RF simvastatin 10 mg Tablet 10 mg PO QPM 0RF Rx Instructions: Refills ran out in June, has not taken since June. lisinopril 10 mg Tablet 10 mg PO DAILY 0RF Label Comments: Refills ran out in June, provider moved, hasn't established new provider. Referrals: Aguila Villafuerte MD [Primary Care Provider] -
[2022-01-14 20:40] LABS: Add Manual Diff / Slide Review NO; Basophils Absolute Auto 300 /uL (0-100); Basophils Percent Auto 3.1 % (0-2); Eosinophils Absolute Auto 0 /uL (0-450); Eosinophils Percent Auto 0.3 % (2-4); Hematocrit 44.5 % (41-53); Hemoglobin 15.2 g/dL (13.5-17.5); Lymphocytes Absolute Auto 900 /uL (1100-4500); Lymphocytes Percent Auto 9.4 % (25-40); Mean Corpuscular HGB Conc 34.1 % (30-36); Mean Corpuscular Volume 96.9 fL (80-100); Monocytes Absolute Auto 900 /uL (0-900); Monocytes Percent Auto 9.2 % (3-14); Neutrophils Absolute Auto 7600 /uL (1500-7000); Platelet Count 246 X10^3/uL (150-400); Red Blood Cell Count 4.59 X10^6/uL (4.5-5.9); Red Cell Distribution Width 13.3 % (11.6-14.8); White Blood Cell Count 9.8 X10^3/uL (4.5-11.0)
[2022-01-14] MEDS: LACTATED RINGERS 1,000 ML 1000 ML IV (20:52)
--- NOTE | 2022-01-14 20:52 | DI.RAD.S_ITS ---
PROCEDURE: XR ACUTE ABDOMEN SERIES INDICATIONS: Abdominal pain, possible obstruction TECHNIQUE: One view chest and two views of the abdomen were acquired. COMPARISON: None. FINDINGS: Surgical changes and devices: None. Chest: Lungs are clear. Heart size is normal. No pleural effusions. Gas abutting the undersurface of the diaphragm appears to be within loops of bowel. No definite free air is seen. Abdomen: Mildly dilated air-filled loops of small bowel are seen throughout the abdomen with multiple air-fluid levels on upright view, suspicious for small bowel obstruction versus possibly ileus. A moderate to large amount of stool is seen in the colon. Visualized solid organ contours appear normal. Bones: No suspicious bony lesions. Multilevel degenerative changes in the spine. IMPRESSION: Mildly dilated air-filled loops of small bowel throughout the abdomen with air-fluid levels is suspicious for small bowel obstruction versus possibly ileus. Moderate to large amount of stool in the colon. No definite pneumoperitoneum. Dictated by: Bradford Webber M.D. on 01/14/2022 at 21:29 Approved by: Bradford Webber M.D. on 01/14/2022 at 21:32
[2022-01-14] MEDS: LABETALOL 20 MG/4 ML SYRINGE 10 MG IV (20:53)
[2022-01-14] MEDS: ONDANSETRON 4 MG/2 ML INJ IV (20:58)
[2022-01-14 21:03] LABS: Alanine Aminotransferase 24 IU/L (<50); Albumin 4.9 g/dL (3.5-5.0); Albumin Globulin Ratio 1.3 (1.0-2.8); Alkaline Phosphatase 78 U/L (38-126); Aspartate Aminotransferase 36 IU/L (17-59); BUN Creatinine Ratio 18.7 (6-22); Bilirubin Total 0.5 mg/dL (0.2-1.3); Blood Urea Nitrogen 14 mg/dL (9-20); Calcium 10.6 mg/dL (8.4-10.2); Carbon Dioxide 29 mmol/L (22-32); Chloride 105 mmol/L (98-107); Estimated Glomerular Filt Rate > 60.0 mL/min (>60); Globulin 3.9 g/dL (1.7-4.1); Glucose 104 mg/dL (80-110); HEMOLYSIS < 15 (0-50); Lipase 91 U/L (23-300); Potassium 3.4 mmol/L (3.4-5.1); Sodium 139 mmol/L (137-145); Total Protein 8.8 g/dL (6.3-8.2)
[2022-01-14 21:06] LABS: Lactate (Lactic Acid) 1.2 mmol/L (0.7-2.1)
[2022-01-14 22:01] LABS: COVID19 -Nasal RAPID Negative (Negative)
--- NOTE | 2022-01-14 22:03 | DI.CT.S_ITS ---
PROCEDURE: CT ABDOMEN PELVIS W CON INDICATIONS: abdominal pain, hernia, bowel obstruction, per surgery TECHNIQUE: After the administration of intravenous contrast, axial sections acquired from the lung bases to the pubic symphysis. Coronal and sagittal reformats were performed. For radiation dose reduction, the following was used: automated exposure control, adjustment of mA and/or kV according to patient size. COMPARISON: [facility], CR, XR ACUTE ABDOMEN SERIES, 01/14/2022, 20:49. [facility], CT, CT ABDOMEN PELVIS W CON, 12/07/2021, 20:14. [facility], CT, CT ABDOMEN PELVIS W CON, 11/11/2021, 18:02. FINDINGS: Image quality: Excellent. Lung bases: Unremarkable. Heart: No significant findings. ABDOMEN: Liver: Unremarkable. Gallbladder: Status post cholecystectomy. Biliary ducts: Unremarkable. Pancreas: Unremarkable. Spleen: Unremarkable. Adrenal Glands: Unremarkable. Kidneys and Ureters: Unremarkable. Stomach and Bowel: Moderate to large volume of stool is seen in the rectum, cecum, and transverse colon. Normal appendix. Nonspecific air-filled loops of small and large bowel are seen with relatively uniform level on sagittal images. Bowel wall thickening and hyperenhancement is seen involving a few intermediate length segments of small bowel within the central abdomen. Small hiatal hernia. Peritoneum: No abnormal intraperitoneal fluid. No free air. Ventral Wall: Tiny fat containing periumbilical hernia. Abdominal Nodes: No retroperitoneal or mesenteric adenopathy by size criteria. Vessels: Aorta and inferior vena cava are normal in size. Moderate aortic atherosclerotic calcifications. PELVIS: Pelvic Organs: Prostate is enlarged. Bladder: Unremarkable. Pelvic Nodes: No enlarged lymph nodes. Miscellaneous: Small right spermatic cord lipoma. No inguinal hernia is seen. Bones: Degenerative changes are seen in the spine. IMPRESSION: 1. Intermediate length segments of wall thickening are seen within a few small bowel loops in the central abdomen, suspicious for a nonspecific enteritis. 2. Nondilated air-filled loops of small and large bowel are seen with relatively stable air-fluid level across the abdomen, suggestive of possible ileus. 3. Moderate to large volume of stool within the ascending and transverse colon and the rectum. 4. Prostatomegaly. Dictated by: Bradford Webber M.D. on 01/14/2022 at 22:47 Approved by: Bradford Webber M.D. on 01/14/2022 at 22:54
[2022-01-14] MEDS: LABETALOL 20 MG/4 ML SYRINGE IV (22:11)
[2022-01-14] MEDS: ONDANSETRON 4 MG ODT PREPACK 1 BOTTLE MISC (23:45)
[2022-01-14] MEDS: HYDROCODONE/ACET 5/325 PREPACK 1 BOTTLE MISC (23:45)
== END 2022-01-14 23:56 | disposition home or self-care (01) ==
PROVIDERS: Emergency Provider Emergency Medicine; Family Provider Internal Medicine; PCP Internal Medicine
DX: K43.2 Incisional hernia without obstruction or gangrene (principal); Z87.891 Personal history of nicotine dependence; Z20.822 Contact with and (suspected) exposure to COVID-19; I10 Essential (primary) hypertension
CPT/HCPCS: 36415; 74022; 74177; 80053; 83605; 83690; 85025; 87040; 87635; 93005; 93010; 96361; 96374; 96375; 96376; 99284; C9803; J2405; Q9967

== ENCOUNTER 2022-08-19 23:13 | Inpatient (IN) | payer MEDICARE, SELFPAY ==
[2021-12-07 22:20] VITALS: BMI 21.2
[2022-08-19 23:15] VITALS: BP 221/122; PULSE 94; RESP 18; TEMP 36.1; O2SAT 97
--- NOTE | 2022-08-19 23:20 | ED_ITS ---
HPI - Abdominal Pain General Chief Complaint: Abdominal Pain Stated Complaint: abd. pain Time Seen by Provider: 08/19/22 23:19 History of Present Illness HPI narrative: 76-year-old male former smoker with history of hypertension and hyperlipidemia presents with a chief complaint of gradually worsening abdominal pain over the course of the evening. He states it is now quite severe and most notable in the right upper quadrant and he is afraid he has another bowel obstruction. He stat es he has not known incisional hernia in the right upper quadrant that he thinks he has been there since a gallbladder was removed and there is a hard very tender lump at this region that he can normally pushing but has been unsuccessful. He is had episodes of nausea and vomiting and though he had bowel movement earlier today which was normal he had another later this afternoon which was soft and very small, he does think he is still passing gas. He has significant pain with any range of motion and improvement with rest. He denies any fever or chills. He states he is had no change in diet or medications. He is having no issues with urination. Related Data Home Medications Medication Instructions Recorded Confirmed aspirin 81 mg tablet,delayed 81 mg PO DAILY 08/14/19 01/26/22 release multivitamin 1 cap PO DAILY 08/14/19 01/26/22 Previous Rx's Medication Instructions Recorded lisinopril 10 mg tablet 10 mg PO DAILY #30 tabs 01/14/22 simvastatin 10 mg tablet 10 mg PO DAILY #30 tabs 01/14/22 Allergies Allergy/AdvReac Type Severity Reaction Status Date / Time No Known Drug Allergies Allergy Verified 01/26/22 15:56 Review of Systems Review of Systems Narrative: GENERAL: See HPI HEENT: Denies sinus pain, ear pain, sore throat, difficulty swallowing, dizziness. RESPIRATORY: Denies dyspnea, cough, wheezing, hemoptysis, sputum. CARDIOVASCULAR: Denies chest pain, palpitations, orthopnea, edema, GASTROINTESTINAL: See HPI : Denies dysuria, frequency, incontinence, hematuria, urinary retention. MUSCULOSKELETAL: denies weakness, joint pain, or bony pain SKIN: Denies rash, skin lesions, or other NEUROLOGIC: Denies weakness, headache, numbness, change in speech, confusion, seizures, incoordination. PSYCHIATRIC: No concerning psychosocial issues. 12 point review of systems is negative except for those stated above Patient History Medical History Elevated blood pressure reading without diagnosis of hypertension GERD (gastroesophageal reflux disease) Localized swelling, mass and lump, left lower limb (08/12/19) Surgical History History of excision of pilonidal cyst (~1969) Family History Mother Colon cancer Pancreatic cancer Father Rheumatic heart disease Grandfather Diabetes mellitus Grandmother Stroke Social History household members: none Smoking Status: Former smoker alcohol intake: current Smoking Status: Former smoker alcohol intake frequency: holidays/special occasions only Substance Use Type: does not use Exam Narrative Exam Narrative: GENERAL: [76] year old patient appears stated age. Well-developed patient, in obviously uncomfortable, in significant pain, holding emesis bag HEAD: Atraumatic. Normocephalic. EYES: Pupils equal round and reactive. Extraocular motions intact. No scleral icterus. No injection or drainage. ENT: Nose without bleeding, purulent drainage. Throat without erythema, tonsillar hypertrophy or exudate. Airway patent. NECK: Trachea midline. Non tender CARDIOVASCULAR: Regular rate and rhythm without murmurs, gallops, or rubs. RESPIRATORY: Clear to auscultation. Breath sounds equal bilaterally. No wheezes, rales, or rhonchi. GASTROINTESTINAL: Abdomen soft, tender, palpable mass and right upper quadrant with overlying erythema, no pain elsewhere, bowel sounds present. EXTREMITIES: No edema or joint tenderness. BACK: Nontender without deformity or crepitance. No flank tenderness. NEURO: AOx3. SKIN: No rash or erythema of visible areas Initial Vital Signs Initial Vital Signs: Vital Signs Temperature 96.9 F L 08/19/22 23:15 Pulse Rate 94 H 08/19/22 23:15 Respiratory Rate 18 08/19/22 23:15 Blood Pressure 221/122 H 08/19/22 23:15 Pulse Oximetry 97 08/19/22 23:15 Oxygen Delivery Method 08/19/22 23:15 Course Orders Ordered: ED Orders 08/19/22 23:21 XR abdomen min 2V Stat 08/19/22 23:28 Complete Blood Count AUTO DIFF Stat Comprehensive Metabolic Panel Stat Lactate (Lactic Acid) Stat 08/19/22 23:40 COVID19 -Nasal RAPID/Pre-Proc Stat 08/19/22 23:49 CT abdomen pelvis w con Stat Hydromorphone HCl (Hydromorphone 0.5 Mg Inj) 0.5 mg IV Q4H PRN PRN Reason: Breakthrough pain only (8-10) Nicardipine HCl 25 mg/ Sodium (Chloride) 250 mls @ 50 mls/hr IV TITRATE HONEY; Protocol Last Titration: 08/20/22 03:09 Dose: 0 mg/hr, 0 mls/hr Documented By: Titration: 08/20/22 01:41 Dose: 5 mg/hr, 50 mls/hr Documented By: Titration: 08/20/22 01:17 Dose: 7.5 mg/hr, 75 mls/hr Documented By: Admin: 08/20/22 01:03 Dose: 5 mg/hr, 50 mls/hr Documented By: HIPOLITO Sodium Chloride (Normal Saline 0.9%) 1,000 mls @ 60 mls/hr IV CONT HONEY Cefazolin Sodium/Dextrose (Ancef) 100 mls @ 200 mls/hr IV Q4H HONEY Metronidazole (Flagyl) 500 mg in 100 mls @ 100 mls/hr IV Q6H HONEY Ondansetron HCl (Ondansetron 4 Mg/2 Ml Inj) 4 mg IV Q8HR PRN PRN Reason: Nausea And Vomiting Discontinued Medications Hydromorphone HCl (Hydromorphone 0.5 Mg Inj) 0.5 mg IV NOW ONE Stop: 08/19/22 23:22 Last Admin: 08/19/22 23:39 Dose: 0.5 mg Documented By: MALACHI Sodium Chloride (Normal Saline 0.9%) 1,000 mls @ 1,000 mls/hr IV BOLUS ONE Stop: 08/20/22 00:20 Last Infusion: 08/20/22 01:09 Dose: 0 mls/hr Documented By: Admin: 08/19/22 23:39 Dose: 1,000 mls/hr Documented By: MALACHI Labetalol HCl (Labetalol 20 Mg/4 Ml Syringe) 10 mg IV NOW ONE Stop: 08/19/22 23:50 Last Admin: 08/20/22 00:14 Dose: 10 mg Documented By: HIPOLITO Ondansetron HCl (Ondansetron 4 Mg/2 Ml Inj) 4 mg IV NOW ONE Stop: 08/19/22 23:22 Last Admin: 08/19/22 23:39 Dose: 4 mg Documented By: MALACHI Ondansetron HCl (Ondansetron 4 Mg/2 Ml Inj) 4 mg IV NOW ONE Stop: 08/20/22 03:15 Last Admin: 08/20/22 03:17 Dose: 4 mg Documented By: MALACHI Reevaluation(s) Reevaluation #1: Patient given Dilaudid, placed in Trendelenburg and hernia is reduced, patient does feel improvement in symptoms Vital Signs Vital signs: Vital Signs - 8 hr 08/19/22 23:15 08/19/22 23:48 08/19/22 23:52 Temperature 96.9 F L Pulse Rate 94 H 76 75 Respiratory Rate 18 Blood Pressure 221/122 H Pulse Oximetry 97 93 Oxygen Delivery Method Room Air Room Air 08/19/22 23:52 08/20/22 00:08 08/20/22 00:12 Temperature Pulse Rate 84 84 Respiratory Rate Blood Pressure 225/116 H Pulse Oximetry 90 L 95 Oxygen Delivery Method 08/20/22 00:12 08/20/22 00:15 08/20/22 00:15 Temperature Pulse Rate 79 Respiratory Rate 11 L Blood Pressure 252/116 H 244/108 H Pulse Oximetry 95 Oxygen Delivery Method 08/20/22 00:30 08/20/22 00:32 08/20/22 00:32 Temperature Pulse Rate 68 68 Respiratory Rate 16 21 Blood Pressure 215/105 H Pulse Oximetry 93 94 Oxygen Delivery Method 08/20/22 00:45 08/20/22 00:45 08/20/22 00:50 Temperature Pulse Rate 73 Respiratory Rate 17 Blood Pressure 228/118 H 229/110 H Pulse Oximetry 92 Oxygen Delivery Method 08/20/22 00:50 08/20/22 01:00 08/20/22 01:00 Temperature Pulse Rate 73 71 Respiratory Rate 22 15 Blood Pressure 230/106 H Pulse Oximetry 95 94 Oxygen Delivery Method 08/20/22 01:10 08/20/22 01:10 08/20/22 01:15 Temperature Pulse Rate 73 73 Respiratory Rate 19 14 Blood Pressure 227/110 H Pulse Oximetry 96 96 Oxygen Delivery Method 08/20/22 01:15 Temperature Pulse Rate Respiratory Rate Blood Pressure 214/102 H Pulse Oximetry Oxygen Delivery Method MDM - Abdominal Pain Lab Data Result diagrams: 08/19/22 23:28 08/19/22 23:28 Labs: Lab Results 08/19/22 08/19/22 08/19/22 Range/Units 23:28 23:28 23:28 WBC 17.0 H (4.5-11.0) X10^3/uL RBC 4.37 L (4.5-5.9) X10^6/uL Hgb 14.5 (13.5-17.5) g/dL Hct 42.4 (41-53) % MCV 97.0 (80-100) fL MCH 33.2 (26-34) PG MCHC 34.2 (30-36) % RDW 13.2 (11.6-14.8) % Plt Count 281 (150-400) X10^3/uL Neut % (Auto) 78.5 H (50-75) % Lymph % (Auto) 11.3 L (25-40) % Loving % (Auto) 8.9 (3-14) % Eos % (Auto) 0.4 L (2-4) % Baso % (Auto) 0.9 (0-2) % Neut # (Auto) 78619 H (8103-8022) /uL Lymph # (Auto) 1900 (9236-5437) /uL Loving # (Auto) 1500 H (0-900) /uL Eos # (Auto) 100 (0-450) /uL Baso # (Auto) 200 H (0-100) /uL Sodium 137 (137-145) mmol/L Potassium 3.9 (3.4-5.1) mmol/L Chloride 102 (98-107) mmol/L Carbon Dioxide 27 (22-32) mmol/L BUN 18 (9-20) mg/dL Creatinine 0.70 (0.66-1.25) mg/dL Estimated GFR > 60 (>60) mL/min BUN/Creatinine Ratio 25.7 H (6-22) Glucose 137 H (80-110) mg/dL Lactate 1.9 (0.7-2.1) mmol/L Calcium 10.0 (8.4-10.2) mg/dL Total Bilirubin 0.5 (0.2-1.3) mg/dL AST 36 (17-59) IU/L ALT 25 (<50) IU/L Alkaline Phosphatase 81 (38-126) U/L Total Protein 8.4 H (6.3-8.2) g/dL Albumin 4.6 (3.5-5.0) g/dL Globulin 3.8 (1.7-4.1) g/dL Albumin/Globulin Ratio 1.2 (1.0-2.8) SARS-CoV-2 (PCR) (Negative) 08/19/22 Range/Units 23:40 WBC (4.5-11.0) X10^3/uL RBC (4.5-5.9) X10^6/uL Hgb (13.5-17.5) g/dL Hct (41-53) % MCV (80-100) fL MCH (26-34) PG MCHC (30-36) % RDW (11.6-14.8) % Plt Count (150-400) X10^3/uL Neut % (Auto) (50-75) % Lymph % (Auto) (25-40) % Loving % (Auto) (3-14) % Eos % (Auto) (2-4) % Baso % (Auto) (0-2) % Neut # (Auto) (9557-5275) /uL Lymph # (Auto) (3930-2592) /uL Loving # (Auto) (0-900) /uL Eos # (Auto) (0-450) /uL Baso # (Auto) (0-100) /uL Sodium (137-145) mmol/L Potassium (3.4-5.1) mmol/L Chloride (98-107) mmol/L Carbon Dioxide (22-32) mmol/L BUN (9-20) mg/dL Creatinine (0.66-1.25) mg/dL Estimated GFR (>60) mL/min BUN/Creatinine Ratio (6-22) Glucose (80-110) mg/dL Lactate (0.7-2.1) mmol/L Calcium (8.4-10.2) mg/dL Total Bilirubin (0.2-1.3) mg/dL AST (17-59) IU/L ALT (<50) IU/L Alkaline Phosphatase (38-126) U/L Total Protein (6.3-8.2) g/dL Albumin (3.5-5.0) g/dL Globulin (1.7-4.1) g/dL Albumin/Globulin Ratio (1.0-2.8) SARS-CoV-2 (PCR) Negative (Negative) Point of care testing: Urine Dip Bedside Urine Glucose Negative Bedside Urine Bilirubin - Negative Bedside Urine Ketone - Negative Urine Specific Fifty Six 1.010 Bedside Urine Occult Blood - Negative Bedside Urine pH 8.0 Bedside Urine Protein - Negative Bedside Urine Urobilinogen - Negative Bedside Urine Nitrite - Negative Bedside Urine Leukocytes - Negative Esterase Imaging Data CT scan - abdomen/pelvis: Radiologist's Impression: Close Abdomen/Pelvis CT (Signed) Call,08/19/22 Abdomen X-Ray (Signed) Call,08/19/22 Launch?Image [address] [address] [address] Scan Report Signed Patient: Aguila Antonio MR#: [id number] : 1945 Acct:[id number] Age/Sex: 76 / M Date of Service: 08/19/22 Loc: ED Accession Number: [id number] ?? Procedure: CT abdomen pelvis w con Ordering Provider: Napoleon Vargas D.O. PROCEDURE:? CT ABDOMEN PELVIS W CON ? INDICATIONS:? severe abdominal pain, obstruction vs. other ? TECHNIQUE:? After the administration of IV contrast, axial sections were acquired from the lung bases to the pubic symphysis.? Coronal and sagittal reformats were performed.? For radiation dose reduction, the following was used:? automated exposure control, adjustment of mA and/or kV according to patient size. ? COMPARISON:? [facility], CT, CT ABDOMEN PELVIS W CON, 12/07/2021, 20:14.? [facility], CT, CT ABDOMEN PELVIS W CON, 01/14/2022, 22:34. ? FINDINGS:? Image quality:? Excellent.? ? Lung bases:? No pleural effusion.? Bibasilar atelectasis.? Right Bochdalek hernia.? Small hiatal hernia.? Fluid in the distal esophagus.? ? Heart:? No significant findings. ? ? ABDOMEN: Liver:? No focal lesion. Gallbladder:? Absent. Biliary ducts:? CBD measures 1 cm. Prominent intrahepatic bile ducts.? Findings are not significantly changed. Pancreas:? Unremarkable.? ? Spleen:? Unremarkable.? ? Adrenal Glands:? Unremarkable.? ? Kidneys and Ureters:? No hydronephrosis.? Small simple right renal cysts. ? Stomach and Bowel:? Stomach is distended and fluid-filled.? Multiple dilated loops of small bowel.? Multiple air-fluid levels.? Findings consistent with small bowel obstruction.? Caliber transition of the small bowel in the lower left paramedian abdomen, ().? Prominent stool in the rectum.? A few colonic diverticuli.? The appendix is not identified. Peritoneum:? No abnormal intraperitoneal fluid.? No free air.? ? Ventral Wall: ? No hernia.? Abdominal Nodes:? No retroperitoneal or mesenteric adenopathy by size criteria.? Vessels:? Abdominal aortic ectasia.? Moderate to severe aortoiliac plaque. ? PELVIS: Pelvic Organs:? Prostatomegaly.? ? Bladder:? Distended.? No stones.? ? Pelvic Nodes: No enlarged lymph nodes.? Miscellaneous:? Possible fat containing right inguinal hernia. ? Bones:? No suspicious lesion.? Multilevel DDD. ? ? IMPRESSION:? 1. Small bowel obstruction.? Suspect transition point in the lower left paramedian abdomen.? Stomach is distended.? Prominent stool in the rectum. ? 2. No free fluid.? No ascites. ? Dictated by: Quan Orantes M.D. on 08/20/2022 at 0:37 ? ? Approved by: Quan Orantes M.D. on 08/20/2022 at 0:45 ? Discharge Plan Departure Patient Disposition: Admitted As Inpatient Clinical Impression: Small bowel obstruction Admit Date/Time: 08/20/22 01:18 Admit Provider: Keli Welsh
--- NOTE | 2022-08-19 23:21 | DI.RAD.S_ITS ---
PROCEDURE: XR ABDOMEN MIN 2V INDICATIONS: abdominal pain, vomiting, history of SBO TECHNIQUE: 2 views of the abdomen were acquired. COMPARISON: [facility], CT, CT ABDOMEN PELVIS W CON, 01/14/2022, 22:34. FINDINGS: Surgical changes and devices: None. Bowel: Multiple dilated loops bowel with air-fluid levels. No pneumoperitoneum identified. Soft tissues: No suspicious abdominal calcifications. Bones: No suspicious bony abnormalities. IMPRESSION: Small bowel obstruction. Dictated by: Quan Orantes M.D. on 08/20/2022 at 0:05 Approved by: Quan Orantes M.D. on 08/20/2022 at 0:06
[2022-08-19 23:39] LABS: Add Manual Diff / Slide Review NO; Basophils Absolute Auto 200 /uL (0-100); Basophils Percent Auto 0.9 % (0-2); Eosinophils Absolute Auto 100 /uL (0-450); Eosinophils Percent Auto 0.4 % (2-4); Hematocrit 42.4 % (41-53); Hemoglobin 14.5 g/dL (13.5-17.5); Lymphocytes Absolute Auto 1900 /uL (1100-4500); Lymphocytes Percent Auto 11.3 % (25-40); Mean Corpuscular HGB Conc 34.2 % (30-36); Mean Corpuscular Hemoglobin 33.2 PG (26-34); Monocytes Absolute Auto 1500 /uL (0-900); Monocytes Percent Auto 8.9 % (3-14); Neutrophils Absolute Auto 13400 /uL (1500-7000); Neutrophils Percent Auto 78.5 % (50-75); Platelet Count 281 X10^3/uL (150-400); Red Blood Cell Count 4.37 X10^6/uL (4.5-5.9); Red Cell Distribution Width 13.2 % (11.6-14.8)
[2022-08-19] MEDS: HYDROMORPHONE 0.5 MG INJ IV (23:39)
[2022-08-19] MEDS: ONDANSETRON 4 MG/2 ML INJ IV (23:39)
[2022-08-19] MEDS: SODIUM CHLORIDE 0.9% 1,000 ML 1000 ML IV (23:39)
[2022-08-19 23:48] VITALS: PULSE 76
[2022-08-19 23:49] LABS: Alanine Aminotransferase 25 IU/L (<50); Albumin 4.6 g/dL (3.5-5.0); Albumin Globulin Ratio 1.2 (1.0-2.8); Alkaline Phosphatase 81 U/L (38-126); Aspartate Aminotransferase 36 IU/L (17-59); BUN Creatinine Ratio 25.7 (6-22); Bilirubin Total 0.5 mg/dL (0.2-1.3); Blood Urea Nitrogen 18 mg/dL (9-20); Carbon Dioxide 27 mmol/L (22-32); Chloride 102 mmol/L (98-107); Estimated Glomerular Filt Rate > 60 mL/min (>60); Globulin 3.8 g/dL (1.7-4.1); Glucose 137 mg/dL (80-110); HEMOLYSIS 40 (0-50); Potassium 3.9 mmol/L (3.4-5.1); Sodium 137 mmol/L (137-145); Total Protein 8.4 g/dL (6.3-8.2)
--- NOTE | 2022-08-19 23:49 | DI.CT.S_ITS ---
PROCEDURE: CT ABDOMEN PELVIS W CON INDICATIONS: severe abdominal pain, obstruction vs. other TECHNIQUE: After the administration of IV contrast, axial sections were acquired from the lung bases to the pubic symphysis. Coronal and sagittal reformats were performed. For radiation dose reduction, the following was used: automated exposure control, adjustment of mA and/or kV according to patient size. COMPARISON: [facility], CT, CT ABDOMEN PELVIS W CON, 12/07/2021, 20:14. [facility], CT, CT ABDOMEN PELVIS W CON, 01/14/2022, 22:34. FINDINGS: Image quality: Excellent. Lung bases: No pleural effusion. Bibasilar atelectasis. Right Bochdalek hernia. Small hiatal hernia. Fluid in the distal esophagus. Heart: No significant findings. ABDOMEN: Liver: No focal lesion. Gallbladder: Absent. Biliary ducts: CBD measures 1 cm. Prominent intrahepatic bile ducts. Findings are not significantly changed. Pancreas: Unremarkable. Spleen: Unremarkable. Adrenal Glands: Unremarkable. Kidneys and Ureters: No hydronephrosis. Small simple right renal cysts. Stomach and Bowel: Stomach is distended and fluid-filled. Multiple dilated loops of small bowel. Multiple air-fluid levels. Findings consistent with small bowel obstruction. Caliber transition of the small bowel in the lower left paramedian abdomen, (2/42). Prominent stool in the rectum. A few colonic diverticuli. The appendix is not identified. Peritoneum: No abnormal intraperitoneal fluid. No free air. Ventral Wall: No hernia. Abdominal Nodes: No retroperitoneal or mesenteric adenopathy by size criteria. Vessels: Abdominal aortic ectasia. Moderate to severe aortoiliac plaque. PELVIS: Pelvic Organs: Prostatomegaly. Bladder: Distended. No stones. Pelvic Nodes: No enlarged lymph nodes. Miscellaneous: Possible fat containing right inguinal hernia. Bones: No suspicious lesion. Multilevel DDD. IMPRESSION: 1. Small bowel obstruction. Suspect transition point in the lower left paramedian abdomen. Stomach is distended. Prominent stool in the rectum. 2. No free fluid. No ascites. Dictated by: Quan Orantes M.D. on 08/20/2022 at 0:37 Approved by: Quan Orantes M.D. on 08/20/2022 at 0:45
[2022-08-19 23:50] LABS: Lactate (Lactic Acid) 1.9 mmol/L (0.7-2.1)
[2022-08-19 23:52] VITALS: BP 225/116; PULSE 75; O2SAT 93
[2022-08-20] VITALS (72 sets, daily range): BP systolic 155–252; BP diastolic 69–118; PULSE 68–96; RESP 11–42; TEMP 36.9–37.8; O2SAT 89–98; BMI 20.9
--- NOTE | 2022-08-20 | DI.RAD.S_ITS ---
PROCEDURE: XR GASTROGRAFIN CHALLENGE COMPARISON: [facility], CT, CT ABDOMEN PELVIS W CON, 08/20/2022, 0:07. [facility], CR, XR ABDOMEN MIN 2V, 08/19/2022, 23:25. INDICATIONS: sbo FINDINGS: The administered Gastrografin can be seen within prominent loops of small bowel and also within the colon. Underlying bony degenerative changes are seen. IMPRESSION: Gastrografin can be seen reaching the colon, which confirms no complete small bowel obstruction. Prominent loops of small bowel are seen, which are consistent with ileus or partial small bowel obstruction. Dictated by: Americo Carter M.D. on 08/20/2022 at 16:43 Approved by: Americo Carter M.D. on 08/20/2022 at 16:45
[2022-08-20 00:04] LABS: COVID19 -Nasal RAPID Negative (Negative)
[2022-08-20] MEDS: LABETALOL 20 MG/4 ML SYRINGE 10 MG IV (00:14)
[2022-08-20] MEDS: NICARDIPINE 25 MG in SODIUM CHLORIDE 0.9% 240 ML 50 MG IV (01:03)
[2022-08-20] MEDS: ONDANSETRON 4 MG/2 ML INJ IV (03:17)
[2022-08-20] MEDS: metroNIDAZOLE 500 MG/100 ML PIGGYBACK 100 MG IV ×2 (04:29→10:04)
[2022-08-20 04:52] LABS: Add Manual Diff / Slide Review NO; Basophils Absolute Auto 0 /uL (0-100); Basophils Percent Auto 0.3 % (0-2); Eosinophils Absolute Auto 0 /uL (0-450); Eosinophils Percent Auto 0.3 % (2-4); Hematocrit 40.5 % (41-53); Hemoglobin 13.9 g/dL (13.5-17.5); Lymphocytes Absolute Auto 400 /uL (1100-4500); Lymphocytes Percent Auto 2.9 % (25-40); Mean Corpuscular HGB Conc 34.4 % (30-36); Mean Corpuscular Hemoglobin 33.3 PG (26-34); Mean Corpuscular Volume 96.6 fL (80-100); Monocytes Absolute Auto 900 /uL (0-900); Monocytes Percent Auto 6.5 % (3-14); Neutrophils Absolute Auto 13000 /uL (1500-7000); Platelet Count 280 X10^3/uL (150-400); Red Blood Cell Count 4.19 X10^6/uL (4.5-5.9); Red Cell Distribution Width 13.2 % (11.6-14.8); White Blood Cell Count 14.4 X10^3/uL (4.5-11.0)
[2022-08-20 05:12] LABS: INR 1.1 (0.9-1.3); Prothrombin Time 12.3 SECONDS (10.1-12.7)
[2022-08-20 05:22] LABS: BUN Creatinine Ratio 27.1 (6-22); Blood Urea Nitrogen 16 mg/dL (9-20); Calcium 9.3 mg/dL (8.4-10.2); Carbon Dioxide 28 mmol/L (22-32); Chloride 103 mmol/L (98-107); Estimated Glomerular Filt Rate > 60 mL/min (>60); Glucose 162 mg/dL (80-110); HEMOLYSIS 17 (0-50); Sodium 139 mmol/L (137-145)
[2022-08-20 05:25] LABS: C-Reactive Protein Quant 0.7 mg/dL (<1.0)
[2022-08-20 05:31] LABS: NT-proBNP (BNP-Adult 18+) 589 pg/mL (<450)
[2022-08-20 05:40] LABS: Procalcitonin 0.05 ng/mL (<0.5)
--- NOTE | 2022-08-20 06:19 | PC.ADMIT ---
[facility]. Admission Note: The patient,Aguila Antonio,76 y/o, was given written information regarding hospital policies, unit procedures and contact persons. Patient's smoking status: Former smoker. Vital Signs - 8 hr 08/19/22 23:15 08/19/22 23:48 08/19/22 23:52 Temperature 96.9 F L Pulse Rate 94 H 76 75 Respiratory Rate 18 Blood Pressure 221/122 H Pulse Oximetry 97 93 Oxygen Delivery Method Room Air Room Air 08/19/22 23:52 08/20/22 00:08 08/20/22 00:12 Temperature Pulse Rate 84 84 Respiratory Rate Blood Pressure 225/116 H Pulse Oximetry 90 L 95 Oxygen Delivery Method 08/20/22 00:12 08/20/22 00:15 08/20/22 00:15 Temperature Pulse Rate 79 Respiratory Rate 11 L Blood Pressure 252/116 H 244/108 H Pulse Oximetry 95 Oxygen Delivery Method 08/20/22 00:30 08/20/22 00:32 08/20/22 00:32 Temperature Pulse Rate 68 68 Respiratory Rate 16 21 Blood Pressure 215/105 H Pulse Oximetry 93 94 Oxygen Delivery Method 08/20/22 00:45 08/20/22 00:45 08/20/22 00:50 Temperature Pulse Rate 73 Respiratory Rate 17 Blood Pressure 228/118 H 229/110 H Pulse Oximetry 92 Oxygen Delivery Method 08/20/22 00:50 08/20/22 01:00 08/20/22 01:00 Temperature Pulse Rate 73 71 Respiratory Rate 22 15 Blood Pressure 230/106 H Pulse Oximetry 95 94 Oxygen Delivery Method 08/20/22 01:10 08/20/22 01:10 08/20/22 01:15 Temperature Pulse Rate 73 73 Respiratory Rate 19 14 Blood Pressure 227/110 H Pulse Oximetry 96 96 Oxygen Delivery Method 08/20/22 01:15 08/20/22 01:20 08/20/22 01:20 Temperature Pulse Rate 92 H Respiratory Rate 22 Blood Pressure 214/102 H 201/95 H Pulse Oximetry Oxygen Delivery Method 08/20/22 01:25 08/20/22 01:25 08/20/22 01:30 Temperature Pulse Rate 79 Respiratory Rate 19 Blood Pressure 181/84 H 173/78 H Pulse Oximetry 89 L Oxygen Delivery Method 08/20/22 01:30 08/20/22 01:35 08/20/22 01:35 Temperature Pulse Rate 76 76 Respiratory Rate 19 23 Blood Pressure 171/83 H Pulse Oximetry 95 94 Oxygen Delivery Method 08/20/22 01:40 08/20/22 01:40 08/20/22 01:45 Temperature Pulse Rate 75 77 Respiratory Rate 34 H 21 Blood Pressure 158/74 H Pulse Oximetry 94 95 Oxygen Delivery Method 08/20/22 01:45 08/20/22 01:50 08/20/22 01:50 Temperature Pulse Rate 78 Respiratory Rate 42 H Blood Pressure 169/81 H 169/81 H Pulse Oximetry 95 Oxygen Delivery Method 08/20/22 01:55 08/20/22 01:55 08/20/22 02:00 Temperature Pulse Rate 82 Respiratory Rate 22 Blood Pressure 184/86 H 179/83 H Pulse Oximetry 96 Oxygen Delivery Method 08/20/22 02:00 08/20/22 02:05 08/20/22 02:05 Temperature Pulse Rate 82 84 Respiratory Rate 20 21 Blood Pressure 174/82 H Pulse Oximetry 95 94 Oxygen Delivery Method 08/20/22 02:10 08/20/22 02:10 08/20/22 02:15 Temperature Pulse Rate 84 85 Respiratory Rate 21 25 H Blood Pressure 167/79 H Pulse Oximetry 94 93 Oxygen Delivery Method 08/20/22 02:15 08/20/22 02:20 08/20/22 02:20 Temperature Pulse Rate 86 Respiratory Rate 20 Blood Pressure 170/79 H 177/84 H Pulse Oximetry 93 Oxygen Delivery Method 08/20/22 02:25 08/20/22 02:25 08/20/22 02:30 Temperature Pulse Rate 89 Respiratory Rate 21 Blood Pressure 164/70 H 170/77 H Pulse Oximetry Oxygen Delivery Method 08/20/22 02:30 08/20/22 02:35 08/20/22 02:35 Temperature Pulse Rate 87 85 Respiratory Rate 17 17 Blood Pressure 164/77 H Pulse Oximetry 92 91 Oxygen Delivery Method 08/20/22 02:40 08/20/22 02:40 08/20/22 02:45 Temperature Pulse Rate 86 Respiratory Rate 18 Blood Pressure 169/79 H 162/75 H Pulse Oximetry 93 Oxygen Delivery Method 08/20/22 02:45 08/20/22 02:50 08/20/22 02:50 Temperature Pulse Rate 86 87 Respiratory Rate 16 22 Blood Pressure 159/69 H Pulse Oximetry 94 91 Oxygen Delivery Method 08/20/22 02:55 08/20/22 02:55 08/20/22 03:00 Temperature Pulse Rate 85 Respiratory Rate 21 Blood Pressure 166/77 H 171/79 H Pulse Oximetry 92 Oxygen Delivery Method 08/20/22 03:00 08/20/22 03:05 08/20/22 03:05 Temperature Pulse Rate 87 89 Respiratory Rate 14 21 Blood Pressure 163/77 H Pulse Oximetry 94 92 Oxygen Delivery Method 08/20/22 03:10 08/20/22 03:10 08/20/22 03:15 Temperature Pulse Rate 93 H 90 Respiratory Rate 23 18 Blood Pressure 163/77 H Pulse Oximetry 91 90 L Oxygen Delivery Method 08/20/22 03:15 08/20/22 03:20 08/20/22 03:20 Temperature Pulse Rate 92 H Respiratory Rate 30 H Blood Pressure 176/93 H 168/91 H Pulse Oximetry 93 Oxygen Delivery Method 08/20/22 03:25 08/20/22 03:25 08/20/22 03:30 Temperature Pulse Rate 90 Respiratory Rate 18 Blood Pressure 165/85 H 175/85 H Pulse Oximetry 94 Oxygen Delivery Method 08/20/22 03:30 08/20/22 03:35 08/20/22 03:35 Temperature Pulse Rate 86 86 Respiratory Rate 14 12 Blood Pressure 161/77 H Pulse Oximetry 93 93 Oxygen Delivery Method 08/20/22 03:40 08/20/22 03:40 08/20/22 03:45 Temperature Pulse Rate 85 Respiratory Rate 18 Blood Pressure 155/74 H 160/77 H Pulse Oximetry 91 Oxygen Delivery Method 08/20/22 03:45 08/20/22 03:50 08/20/22 03:50 Temperature Pulse Rate 82 81 Respiratory Rate 19 15 Blood Pressure 164/79 H Pulse Oximetry 92 93 Oxygen Delivery Method 08/20/22 03:55 08/20/22 03:55 08/20/22 04:00 Temperature Pulse Rate 82 Respiratory Rate 17 Blood Pressure 164/78 H 171/82 H Pulse Oximetry 94 Oxygen Delivery Method 08/20/22 04:00 08/20/22 04:05 08/20/22 04:05 Temperature Pulse Rate 88 88 Respiratory Rate 22 22 Blood Pressure 174/84 H Pulse Oximetry 91 91 Oxygen Delivery Method 08/20/22 04:15 08/20/22 04:15 08/20/22 04:30 Temperature Pulse Rate 80 Respiratory Rate 17 Blood Pressure 169/81 H 193/90 H Pulse Oximetry 91 Oxygen Delivery Method 08/20/22 04:30 08/20/22 04:45 08/20/22 04:45 Temperature Pulse Rate 89 91 H Respiratory Rate 18 20 Blood Pressure 177/77 H Pulse Oximetry 96 95 Oxygen Delivery Method 08/20/22 05:00 08/20/22 05:00 08/20/22 05:15 Temperature Pulse Rate 91 H 90 Respiratory Rate 23 21 Blood Pressure 170/80 H Pulse Oximetry 94 94 Oxygen Delivery Method 08/20/22 05:15 08/20/22 05:30 08/20/22 05:30 Temperature Pulse Rate 91 H Respiratory Rate 19 Blood Pressure 176/84 H 175/84 H Pulse Oximetry 93 Oxygen Delivery Method 08/20/22 05:45 08/20/22 05:45 Temperature Pulse Rate 92 H Respiratory Rate 17 Blood Pressure 178/81 H Pulse Oximetry 94 Oxygen Delivery Method Patient up from ED via stretcher. Patient was able to get off of the stretcher on own and ambulate to bed, gait was steady. Patient was A&O, calm and cooperative.
[2022-08-20] MEDS: SODIUM CHLORIDE 0.9% 1,000 ML 60 ML IV (06:23)
[2022-08-20] MEDS: CEFAZOLIN 2 GM/100 ML PREMIX 100 ML IV (06:29)
--- NOTE | 2022-08-20 06:59 | PC.NURSE ---
Patient admitted to Room 231. Explanations given regarding Dr's orders and NPO status. Patient rates abd pain at 2/10 to upper right abd. Patient states that pain is now well controlled. IV fluids and IV antibiotics initiated per EMAR. Abd soft, slighted distended with hypoactive BT's. Patient pleasant and cooperative. Encouraged to call staff for any questions or concerns.
[2022-08-20] MEDS: lisinopriL 10 MG TABLET PO (09:19)
--- NOTE | 2022-08-20 09:36 | PM.CN ---
History of Present Illness Consult details Date Patient Seen: 08/20/22 Time Patient Seen: 09:36 Chief complaint: abd. pain Reason for consult: partial, recurring SBO. Requesting provider: Napoleon Vargas Narrative: Recurrent partial SBO, nausea and emesis. Had gallbladder removed in hopes of treating some of the symptoms. 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 Currently passing gas and feels better. CT scan reviewed personally and there is significant constipation, fecalization of distal small bowel. I do not appreciate the transition point. Meds Home Medications and Allergies Home Medications Medication Instructions Recorded Confirmed Type aspirin 81 mg tablet,delayed 81 mg PO DAILY 08/14/19 08/20/22 History release multivitamin 1 cap PO DAILY 08/14/19 08/20/22 History lisinopril 10 mg tablet 10 mg PO DAILY #30 tabs 01/14/22 08/20/22 Rx simvastatin 10 mg tablet 10 mg PO DAILY #30 tabs 01/14/22 08/20/22 Rx docusate sodium 100 mg tablet 200 mg PO BID 08/20/22 08/20/22 History fluticasone propionate 50 1 spray intranasal BEDTIME PRN 08/20/22 08/20/22 History mcg/actuation nasal Congestion spray,suspension Allergies Allergy/AdvReac Type Severity Reaction Status Date / Time No Known Drug Allergies Allergy Verified 01/26/22 15:56 Review of Systems Review of Systems ROS: Yes All systems reviewed with the patient and are negative except as otherwise documented Exam Vital Signs (past 8 hours): - 08/20/22 01:40 08/20/22 01:40 08/20/22 01:45 Temperature Pulse Rate 75 77 Respiratory Rate 34 H 21 Blood Pressure 158/74 H Pulse Oximetry 94 95 Oxygen Delivery Method 08/20/22 01:45 08/20/22 01:50 08/20/22 01:50 Temperature Pulse Rate 78 Respiratory Rate 42 H Blood Pressure 169/81 H 169/81 H Pulse Oximetry 95 Oxygen Delivery Method 08/20/22 01:55 08/20/22 01:55 08/20/22 02:00 Temperature Pulse Rate 82 Respiratory Rate 22 Blood Pressure 184/86 H 179/83 H Pulse Oximetry 96 Oxygen Delivery Method 08/20/22 02:00 08/20/22 02:05 08/20/22 02:05 Temperature Pulse Rate 82 84 Respiratory Rate 20 21 Blood Pressure 174/82 H Pulse Oximetry 95 94 Oxygen Delivery Method 08/20/22 02:10 08/20/22 02:10 08/20/22 02:15 Temperature Pulse Rate 84 85 Respiratory Rate 21 25 H Blood Pressure 167/79 H Pulse Oximetry 94 93 Oxygen Delivery Method 08/20/22 02:15 08/20/22 02:20 08/20/22 02:20 Temperature Pulse Rate 86 Respiratory Rate 20 Blood Pressure 170/79 H 177/84 H Pulse Oximetry 93 Oxygen Delivery Method 08/20/22 02:25 08/20/22 02:25 08/20/22 02:30 Temperature Pulse Rate 89 Respiratory Rate 21 Blood Pressure 164/70 H 170/77 H Pulse Oximetry Oxygen Delivery Method 08/20/22 02:30 08/20/22 02:35 08/20/22 02:35 Temperature Pulse Rate 87 85 Respiratory Rate 17 17 Blood Pressure 164/77 H Pulse Oximetry 92 91 Oxygen Delivery Method 08/20/22 02:40 08/20/22 02:40 08/20/22 02:45 Temperature Pulse Rate 86 Respiratory Rate 18 Blood Pressure 169/79 H 162/75 H Pulse Oximetry 93 Oxygen Delivery Method 08/20/22 02:45 08/20/22 02:50 08/20/22 02:50 Temperature Pulse Rate 86 87 Respiratory Rate 16 22 Blood Pressure 159/69 H Pulse Oximetry 94 91 Oxygen Delivery Method 08/20/22 02:55 08/20/22 02:55 08/20/22 03:00 Temperature Pulse Rate 85 Respiratory Rate 21 Blood Pressure 166/77 H 171/79 H Pulse Oximetry 92 Oxygen Delivery Method 08/20/22 03:00 08/20/22 03:05 08/20/22 03:05 Temperature Pulse Rate 87 89 Respiratory Rate 14 21 Blood Pressure 163/77 H Pulse Oximetry 94 92 Oxygen Delivery Method 08/20/22 03:10 08/20/22 03:10 08/20/22 03:15 Temperature Pulse Rate 93 H 90 Respiratory Rate 23 18 Blood Pressure 163/77 H Pulse Oximetry 91 90 L Oxygen Delivery Method 08/20/22 03:15 08/20/22 03:20 08/20/22 03:20 Temperature Pulse Rate 92 H Respiratory Rate 30 H Blood Pressure 176/93 H 168/91 H Pulse Oximetry 93 Oxygen Delivery Method 08/20/22 03:25 08/20/22 03:25 08/20/22 03:30 Temperature Pulse Rate 90 Respiratory Rate 18 Blood Pressure 165/85 H 175/85 H Pulse Oximetry 94 Oxygen Delivery Method 08/20/22 03:30 08/20/22 03:35 08/20/22 03:35 Temperature Pulse Rate 86 86 Respiratory Rate 14 12 Blood Pressure 161/77 H Pulse Oximetry 93 93 Oxygen Delivery Method 08/20/22 03:40 08/20/22 03:40 08/20/22 03:45 Temperature Pulse Rate 85 Respiratory Rate 18 Blood Pressure 155/74 H 160/77 H Pulse Oximetry 91 Oxygen Delivery Method 08/20/22 03:45 08/20/22 03:50 08/20/22 03:50 Temperature Pulse Rate 82 81 Respiratory Rate 19 15 Blood Pressure 164/79 H Pulse Oximetry 92 93 Oxygen Delivery Method 08/20/22 03:55 08/20/22 03:55 08/20/22 04:00 Temperature Pulse Rate 82 Respiratory Rate 17 Blood Pressure 164/78 H 171/82 H Pulse Oximetry 94 Oxygen Delivery Method 08/20/22 04:00 08/20/22 04:05 08/20/22 04:05 Temperature Pulse Rate 88 88 Respiratory Rate 22 22 Blood Pressure 174/84 H Pulse Oximetry 91 91 Oxygen Delivery Method 08/20/22 04:15 08/20/22 04:15 08/20/22 04:30 Temperature Pulse Rate 80 Respiratory Rate 17 Blood Pressure 169/81 H 193/90 H Pulse Oximetry 91 Oxygen Delivery Method 08/20/22 04:30 08/20/22 04:45 08/20/22 04:45 Temperature Pulse Rate 89 91 H Respiratory Rate 18 20 Blood Pressure 177/77 H Pulse Oximetry 96 95 Oxygen Delivery Method 08/20/22 05:00 08/20/22 05:00 08/20/22 05:15 Temperature Pulse Rate 91 H 90 Respiratory Rate 23 21 Blood Pressure 170/80 H Pulse Oximetry 94 94 Oxygen Delivery Method 08/20/22 05:15 08/20/22 05:30 08/20/22 05:30 Temperature Pulse Rate 91 H Respiratory Rate 19 Blood Pressure 176/84 H 175/84 H Pulse Oximetry 93 Oxygen Delivery Method 08/20/22 05:45 08/20/22 05:45 08/20/22 06:00 Temperature 99.8 F H Pulse Rate 92 H 94 H Respiratory Rate 17 19 Blood Pressure 178/81 H 170/84 H Pulse Oximetry 94 97 Oxygen Delivery Method 08/20/22 07:00 08/20/22 09:19 Temperature Pulse Rate 85 Respiratory Rate Blood Pressure 173/87 H Pulse Oximetry Oxygen Delivery Method Room Air Oxygen Delivery Method Room Air Const General: cooperative, healthy appearing and comfortable Orientation: alert, awake and oriented x3 HENMT Head: normal to inspection Face and sinus: normal facial exam Eyes General: appearance normal, both eyes and all related structures Sclera: sclerae normal Neck Neck: normal visual inspection and trachea midline Chest Chest: normal inspection of the chest Resp Effort & Inspection: able to speak in complete sentences and abnormal respiratory pattern Cardio Rate: regular rate Rhythm: regular rhythm GI Inspection: normal to inspection Palpation: soft Other: no distended or tender Skin General: atrophy Neuro General: patient alert, patient awake and patient oriented x3 Cognition: normal cognition Extrem General: full ROM Psych Mental Status: mental status grossly normal Affect: normal affect Judgment: judgment good Objective Labs Result Diagrams: 08/20/22 04:38 08/20/22 04:38 Labs: Laboratory Results - last 24 hr 08/19/22 08/19/22 08/19/22 23:28 23:28 23:28 WBC 17.0 H RBC 4.37 L Hgb 14.5 Hct 42.4 MCV 97.0 MCH 33.2 MCHC 34.2 RDW 13.2 Plt Count 281 Neut % (Auto) 78.5 H Lymph % (Auto) 11.3 L [place] % (Auto) 8.9 Eos % (Auto) 0.4 L Baso % (Auto) 0.9 Neut # (Auto) 57390 H Lymph # (Auto) 1900 [place] # (Auto) 1500 H Eos # (Auto) 100 Baso # (Auto) 200 H PT INR Sodium 137 Potassium 3.9 Chloride 102 Carbon Dioxide 27 BUN 18 Creatinine 0.70 Estimated GFR > 60 BUN/Creatinine Ratio 25.7 H Glucose 137 H Lactate 1.9 Calcium 10.0 Total Bilirubin 0.5 AST 36 ALT 25 Alkaline Phosphatase 81 C-Reactive Protein NT-Pro-B Natriuret Pep Total Protein 8.4 H Albumin 4.6 Globulin 3.8 Albumin/Globulin Ratio 1.2 Procalcitonin SARS-CoV-2 (PCR) 08/19/22 08/20/22 08/20/22 23:40 04:38 04:38 WBC RBC Hgb Hct MCV MCH MCHC RDW Plt Count Neut % (Auto) Lymph % (Auto) [place] % (Auto) Eos % (Auto) Baso % (Auto) Neut # (Auto) Lymph # (Auto) [place] # (Auto) Eos # (Auto) Baso # (Auto) PT INR Sodium Potassium Chloride Carbon Dioxide BUN Creatinine Estimated GFR BUN/Creatinine Ratio Glucose Lactate Calcium Total Bilirubin AST ALT Alkaline Phosphatase C-Reactive Protein 0.7 NT-Pro-B Natriuret Pep 589 H Total Protein Albumin Globulin Albumin/Globulin Ratio Procalcitonin SARS-CoV-2 (PCR) Negative 08/20/22 08/20/22 08/20/22 04:38 04:38 04:38 WBC 14.4 H RBC 4.19 L Hgb 13.9 Hct 40.5 L MCV 96.6 MCH 33.3 MCHC 34.4 RDW 13.2 Plt Count 280 Neut % (Auto) 90.0 H Lymph % (Auto) 2.9 L [place] % (Auto) 6.5 Eos % (Auto) 0.3 L Baso % (Auto) 0.3 Neut # (Auto) 52173 H Lymph # (Auto) 400 L [place] # (Auto) 900 Eos # (Auto) 0 Baso # (Auto) 0 PT 12.3 INR 1.1 Sodium Potassium Chloride Carbon Dioxide BUN Creatinine Estimated GFR BUN/Creatinine Ratio Glucose Lactate Calcium Total Bilirubin AST ALT Alkaline Phosphatase C-Reactive Protein NT-Pro-B Natriuret Pep Total Protein Albumin Globulin Albumin/Globulin Ratio Procalcitonin 0.05 SARS-CoV-2 (PCR) 08/20/22 04:38 WBC RBC Hgb Hct MCV MCH MCHC RDW Plt Count Neut % (Auto) Lymph % (Auto) [place] % (Auto) Eos % (Auto) Baso % (Auto) Neut # (Auto) Lymph # (Auto) [place] # (Auto) Eos # (Auto) Baso # (Auto) PT INR Sodium 139 Potassium 4.0 Chloride 103 Carbon Dioxide 28 BUN 16 Creatinine 0.59 L Estimated GFR > 60 BUN/Creatinine Ratio 27.1 H Glucose 162 H Lactate Calcium 9.3 Total Bilirubin AST ALT Alkaline Phosphatase C-Reactive Protein NT-Pro-B Natriuret Pep Total Protein Albumin Globulin Albumin/Globulin Ratio Procalcitonin SARS-CoV-2 (PCR) [facility] Medical History Elevated blood pressure reading without diagnosis of hypertension GERD (gastroesophageal reflux disease) Localized swelling, mass and lump, left lower limb (08/12/19) Surgical History History of excision of pilonidal cyst (~1969) Family History Mother Colon cancer Pancreatic cancer Father Rheumatic heart disease Grandfather Diabetes mellitus Grandmother Stroke Social History household members: none Tobacco & Substance Use Smoking Status: Former smoker alcohol intake: current Assessment & Plan Assessment & Plan narrative: Partial, recurrent SBO possibly exacerbated by constipation. Plan: Gastrografin challenge and add OTC Miralax to his home bowel regimen COVID-19 COVID-19 status: Negative Time Spent With Patient Time with patient: less than 30 minutes Critical Care time: I spent a total of [] minutes of critical care time on this patient's care today; this time is exclusive of procedural time.
--- NOTE | 2022-08-20 09:59 | P.HP_ITS ---
History of Present Illness History of Present Illness Date Patient Seen: 08/20/22 Chief complaint: abd. pain Narrative: 76-year-old male former smoker with history of hypertension and hyperlipidemia presents with a chief complaint of gradually worsening abdominal pain over the course of the evening.? He states it is now quite severe and most notable in the right upper quadrant and he is afraid he has another bowel obstruction.? He states he has not known incisional hernia in the right upper quadrant that he thinks he has been there since a gallbladder was removed and there is a hard very tender lump at this region that he can normally pushing but has been unsuccessful.? He is had episodes of nausea and vomiting and though he had bowel movement earlier today which was normal he had another later this afternoon which was soft and very small, he does think he is still passing gas.? He has significant pain with any range of motion and improvement with rest.? He denies any fever or chills.? He states he is had no change in diet or medications.? He is having no issues with urination. When I saw him upstairs on the medical floor patient started feeling better, pain improved, nausea improved. I discussed with the surgery, emptying study pending at this time. Patient had 3 hospitalizations in the past with a small-bowel obstruction where he required NG tube only 1 time. Patient History Medical History Elevated blood pressure reading without diagnosis of hypertension GERD (gastroesophageal reflux disease) Localized swelling, mass and lump, left lower limb (08/12/19) Surgical History History of excision of pilonidal cyst (~1969) Family & Social History Family History Mother Colon cancer Pancreatic cancer Father Rheumatic heart disease Grandfather Diabetes mellitus Grandmother Stroke Social History: household members none Prior Living Arrangements House Safety & Behavioral: Feels Safe in Current Yes Environment Been Physically Hurt or No Threatened By a Person Tobacco & Substance use: Smoking Status Former smoker alcohol intake current alcohol intake frequency holiday/special occasion Substance Use Type does not use Meds Home Medications and Allergies Home Medications Medication Instructions Recorded Confirmed Type aspirin 81 mg tablet,delayed 81 mg PO DAILY 08/14/19 08/20/22 History release multivitamin 1 cap PO DAILY 08/14/19 08/20/22 History lisinopril 10 mg tablet 10 mg PO DAILY #30 tabs 01/14/22 08/20/22 Rx simvastatin 10 mg tablet 10 mg PO DAILY #30 tabs 01/14/22 08/20/22 Rx docusate sodium 100 mg tablet 200 mg PO BID 08/20/22 08/20/22 History fluticasone propionate 50 1 spray intranasal BEDTIME PRN 08/20/22 08/20/22 History mcg/actuation nasal Congestion spray,suspension Allergies Allergy/AdvReac Type Severity Reaction Status Date / Time No Known Drug Allergies Allergy Verified 01/26/22 15:56 Review of Systems Review of Systems Narrative: Positive for mild abdominal discomfort and also some nausea. No episodes of vomiting this morning. All other systems reviewed, negative other than as mentioned above in HPI Exam Vital Signs (past 8 hours): - 08/20/22 02:00 08/20/22 02:00 08/20/22 02:05 Temperature Pulse Rate 82 84 Respiratory Rate 20 21 Blood Pressure 179/83 H Pulse Oximetry 95 94 Oxygen Delivery Method 08/20/22 02:05 08/20/22 02:10 08/20/22 02:10 Temperature Pulse Rate 84 Respiratory Rate 21 Blood Pressure 174/82 H 167/79 H Pulse Oximetry 94 Oxygen Delivery Method 08/20/22 02:15 08/20/22 02:15 08/20/22 02:20 Temperature Pulse Rate 85 86 Respiratory Rate 25 H 20 Blood Pressure 170/79 H Pulse Oximetry 93 93 Oxygen Delivery Method 08/20/22 02:20 08/20/22 02:25 08/20/22 02:25 Temperature Pulse Rate 89 Respiratory Rate 21 Blood Pressure 177/84 H 164/70 H Pulse Oximetry Oxygen Delivery Method 08/20/22 02:30 08/20/22 02:30 08/20/22 02:35 Temperature Pulse Rate 87 85 Respiratory Rate 17 17 Blood Pressure 170/77 H Pulse Oximetry 92 91 Oxygen Delivery Method 08/20/22 02:35 08/20/22 02:40 08/20/22 02:40 Temperature Pulse Rate 86 Respiratory Rate 18 Blood Pressure 164/77 H 169/79 H Pulse Oximetry 93 Oxygen Delivery Method 08/20/22 02:45 08/20/22 02:45 08/20/22 02:50 Temperature Pulse Rate 86 Respiratory Rate 16 Blood Pressure 162/75 H 159/69 H Pulse Oximetry 94 Oxygen Delivery Method 08/20/22 02:50 08/20/22 02:55 08/20/22 02:55 Temperature Pulse Rate 87 85 Respiratory Rate 22 21 Blood Pressure 166/77 H Pulse Oximetry 91 92 Oxygen Delivery Method 08/20/22 03:00 08/20/22 03:00 08/20/22 03:05 Temperature Pulse Rate 87 89 Respiratory Rate 14 21 Blood Pressure 171/79 H Pulse Oximetry 94 92 Oxygen Delivery Method 08/20/22 03:05 08/20/22 03:10 08/20/22 03:10 Temperature Pulse Rate 93 H Respiratory Rate 23 Blood Pressure 163/77 H 163/77 H Pulse Oximetry 91 Oxygen Delivery Method 08/20/22 03:15 08/20/22 03:15 08/20/22 03:20 Temperature Pulse Rate 90 92 H Respiratory Rate 18 30 H Blood Pressure 176/93 H Pulse Oximetry 90 L 93 Oxygen Delivery Method 08/20/22 03:20 08/20/22 03:25 08/20/22 03:25 Temperature Pulse Rate 90 Respiratory Rate 18 Blood Pressure 168/91 H 165/85 H Pulse Oximetry 94 Oxygen Delivery Method 08/20/22 03:30 08/20/22 03:30 08/20/22 03:35 Temperature Pulse Rate 86 86 Respiratory Rate 14 12 Blood Pressure 175/85 H Pulse Oximetry 93 93 Oxygen Delivery Method 08/20/22 03:35 08/20/22 03:40 08/20/22 03:40 Temperature Pulse Rate 85 Respiratory Rate 18 Blood Pressure 161/77 H 155/74 H Pulse Oximetry 91 Oxygen Delivery Method 08/20/22 03:45 08/20/22 03:45 08/20/22 03:50 Temperature Pulse Rate 82 Respiratory Rate 19 Blood Pressure 160/77 H 164/79 H Pulse Oximetry 92 Oxygen Delivery Method 08/20/22 03:50 08/20/22 03:55 08/20/22 03:55 Temperature Pulse Rate 81 82 Respiratory Rate 15 17 Blood Pressure 164/78 H Pulse Oximetry 93 94 Oxygen Delivery Method 08/20/22 04:00 08/20/22 04:00 08/20/22 04:05 Temperature Pulse Rate 88 88 Respiratory Rate 22 22 Blood Pressure 171/82 H Pulse Oximetry 91 91 Oxygen Delivery Method 08/20/22 04:05 08/20/22 04:15 08/20/22 04:15 Temperature Pulse Rate 80 Respiratory Rate 17 Blood Pressure 174/84 H 169/81 H Pulse Oximetry 91 Oxygen Delivery Method 08/20/22 04:30 08/20/22 04:30 08/20/22 04:45 Temperature Pulse Rate 89 91 H Respiratory Rate 18 20 Blood Pressure 193/90 H Pulse Oximetry 96 95 Oxygen Delivery Method 08/20/22 04:45 08/20/22 05:00 08/20/22 05:00 Temperature Pulse Rate 91 H Respiratory Rate 23 Blood Pressure 177/77 H 170/80 H Pulse Oximetry 94 Oxygen Delivery Method 08/20/22 05:15 08/20/22 05:15 08/20/22 05:30 Temperature Pulse Rate 90 Respiratory Rate 21 Blood Pressure 176/84 H 175/84 H Pulse Oximetry 94 Oxygen Delivery Method 08/20/22 05:30 08/20/22 05:45 08/20/22 05:45 Temperature Pulse Rate 91 H 92 H Respiratory Rate 19 17 Blood Pressure 178/81 H Pulse Oximetry 93 94 Oxygen Delivery Method 08/20/22 06:00 08/20/22 07:00 08/20/22 09:19 Temperature 99.8 F H Pulse Rate 94 H 85 Respiratory Rate 19 Blood Pressure 170/84 H 173/87 H Pulse Oximetry 97 Oxygen Delivery Method Room Air Oxygen Delivery Method Room Air Narrative Exam Narrative: Patient alert oriented able to make a reasonable conversation, follows commands. Abdominal examination positive for bowel sounds, mild discomfort in epigastric area, no guarding, no rigidity, no organomegaly. Constitutional, HEENT, neck, cardiovascular, respiratory, skin, neuro, psych exam done, negative other than as mentioned above. Objective Labs Result Diagrams: 08/20/22 04:38 08/20/22 04:38 Labs: Laboratory Results - last 24 hr 08/19/22 08/19/22 08/19/22 23:28 23:28 23:28 WBC 17.0 H RBC 4.37 L Hgb 14.5 Hct 42.4 MCV 97.0 MCH 33.2 MCHC 34.2 RDW 13.2 Plt Count 281 Neut % (Auto) 78.5 H Lymph % (Auto) 11.3 L [place] % (Auto) 8.9 Eos % (Auto) 0.4 L Baso % (Auto) 0.9 Neut # (Auto) 95171 H Lymph # (Auto) 1900 [place] # (Auto) 1500 H Eos # (Auto) 100 Baso # (Auto) 200 H PT INR Sodium 137 Potassium 3.9 Chloride 102 Carbon Dioxide 27 BUN 18 Creatinine 0.70 Estimated GFR > 60 BUN/Creatinine Ratio 25.7 H Glucose 137 H Lactate 1.9 Calcium 10.0 Total Bilirubin 0.5 AST 36 ALT 25 Alkaline Phosphatase 81 C-Reactive Protein NT-Pro-B Natriuret Pep Total Protein 8.4 H Albumin 4.6 Globulin 3.8 Albumin/Globulin Ratio 1.2 Procalcitonin SARS-CoV-2 (PCR) 08/19/22 08/20/22 08/20/22 23:40 04:38 04:38 WBC RBC Hgb Hct MCV MCH MCHC RDW Plt Count Neut % (Auto) Lymph % (Auto) [place] % (Auto) Eos % (Auto) Baso % (Auto) Neut # (Auto) Lymph # (Auto) [place] # (Auto) Eos # (Auto) Baso # (Auto) PT INR Sodium Potassium Chloride Carbon Dioxide BUN Creatinine Estimated GFR BUN/Creatinine Ratio Glucose Lactate Calcium Total Bilirubin AST ALT Alkaline Phosphatase C-Reactive Protein 0.7 NT-Pro-B Natriuret Pep 589 H Total Protein Albumin Globulin Albumin/Globulin Ratio Procalcitonin SARS-CoV-2 (PCR) Negative 08/20/22 08/20/22 08/20/22 04:38 04:38 04:38 WBC 14.4 H RBC 4.19 L Hgb 13.9 Hct 40.5 L MCV 96.6 MCH 33.3 MCHC 34.4 RDW 13.2 Plt Count 280 Neut % (Auto) 90.0 H Lymph % (Auto) 2.9 L [place] % (Auto) 6.5 Eos % (Auto) 0.3 L Baso % (Auto) 0.3 Neut # (Auto) 05890 H Lymph # (Auto) 400 L [place] # (Auto) 900 Eos # (Auto) 0 Baso # (Auto) 0 PT 12.3 INR 1.1 Sodium Potassium Chloride Carbon Dioxide BUN Creatinine Estimated GFR BUN/Creatinine Ratio Glucose Lactate Calcium Total Bilirubin AST ALT Alkaline Phosphatase C-Reactive Protein NT-Pro-B Natriuret Pep Total Protein Albumin Globulin Albumin/Globulin Ratio Procalcitonin 0.05 SARS-CoV-2 (PCR) 08/20/22 04:38 WBC RBC Hgb Hct MCV MCH MCHC RDW Plt Count Neut % (Auto) Lymph % (Auto) [place] % (Auto) Eos % (Auto) Baso % (Auto) Neut # (Auto) Lymph # (Auto) [place] # (Auto) Eos # (Auto) Baso # (Auto) PT INR Sodium 139 Potassium 4.0 Chloride 103 Carbon Dioxide 28 BUN 16 Creatinine 0.59 L Estimated GFR > 60 BUN/Creatinine Ratio 27.1 H Glucose 162 H Lactate Calcium 9.3 Total Bilirubin AST ALT Alkaline Phosphatase C-Reactive Protein NT-Pro-B Natriuret Pep Total Protein Albumin Globulin Albumin/Globulin Ratio Procalcitonin SARS-CoV-2 (PCR) Assessment & Plan Assessment and plan (1) Small bowel obstruction: Status: Acute Assessment & Plan narrative: Small-bowel obstruction with a transition point as confirmed by imaging -patient nausea improving, Gastrografin study pending, surgery following, NPO, hold off on NG tube at this time. Continue to monitor Benign essential hypertension SCDs for DVT prophylaxis, ppi for GI prophylaxis Patient's neighbor is his primary call person, no family Care plan extensively discussed with the patient and also answered all questions, we will consider advancing diet once cleared by surgery Time Spent With Patient Critical Care time: I spent a total of [] minutes of critical care time on this patient's care today; this time is exclusive of procedural time.
--- NOTE | 2022-08-20 12:13 | CM.DANOTE ---
DCP: Case received, EMR reviewed and met with patient. Introduced self and role. Was able to obtain information regarding patient's baseline activity status at home prior to hospitalization. DCP assessment completed with information currently available. Patient is a 76 year old male who admitted early this morning to the care of the hospitalist team. PCP: Was Dr. Aguila Villafuerte at [facility], is hoping to get on with Dr. Dumas. Payer: confirmed: Medicare. Patient came to the hospital via private vehicle secondary to having right upper quadrant pain, concerned that he was having another bowel obstruction. Patient was diagnosed with recurrent SBO, possibly exacerbated by constipation. Surgeon had already consulted. Met with patient in his room. He was laying on the bed, alert and oriented. Stated, he was already feeling better. Confirmed that he resides here in [place] alone. He does have a friend named Abigail Franz. Patient is independent at his baseline. P: DCP to continue to follow. Patient should be able to go home when deemed medically stable. Clara Natarajan RN/Dinkey Driver Discharge Planning/Care Management Advanced directive, confirm from FAMILY Start: 08/20/22 06:15 Freq: Q24H Status: Active Protocol: Document 08/20/22 06:15 MS (Rec: 08/20/22 08:52 MS [id number]) Advance Directive, confirm on record Time 08:49 Person contacted patient Copy received Yes CM Discharge Assessment Start: 08/20/22 12:11 Freq: Status: Active Protocol: Document 08/20/22 12:12 (Rec: 08/20/22 12:13 [id number]) Discharge Planning Assessment Assigned Product Development Engineer Clara Natarajan RN/Dinkey Driver Advance Directives? No Advance Directives on File No History Provided By Patient,Medical Record Prior Living Arrangements House Household Members none Type of transporation used prior to Drives own vehicle admit Independent with ADL's Yes Is patient alert and oriented? Yes DME Already Rented / Owned Cane Barriers to Discharge No Discharge Plan Home Transportation Arrangement Spouse Referrals Initiated None needed Whiteboard Updated in Patient Room with Yes name and ext. # of Product Development Engineer Review Status In Process Next Review Type Continued Stay Review
--- NOTE | 2022-08-20 12:56 | PC.NURSE ---
Addendum entered by Tiffanie Akbar 08/20/22 16:29: Advance diet as tolerated per surgeon. Started on clear liquid diet and is tolerating well. Temp 100.0, cooling measures began by removing extra clothing and bedding. Provider notified. Passing flatus but no bowel movement as this time. Will continue to monitor. Addendum entered by Stormy Horton R.N. 08/20/22 13:32: I have reviewed and agree with all documentation by this student Addendum entered by Tiffanie Akbar 08/20/22 13:12: Call light within reach, able to use appropriately. Able to verbalize needs. On room air. Patient able to ambulate to bathroom. Will continue to monitor. Original Note: A&Ox4. Provider at bedside, IV fluids increased per provider order. Surgeon consulted, ordered gastrografin challenge. NPO status maintained until after study, will be clear liquid after. Nicardipine drip d/c prior to this nurse's shift. Remains slightly hypertensive; provider aware.
[2022-08-20] MEDS: SODIUM CHLORIDE 0.9% 1,000 ML 100 ML IV (14:17)
[2022-08-20] MEDS: SIMETHICONE 80 MG TABLET PO ×2 (18:11→23:21)
--- NOTE | 2022-08-20 20:34 | PC.NURSE ---
Addendum entered by Iris Phillips R.N. 08/21/22 06:12: Patient OOB x4 this 12 hours for loose BMs. Patient tolerated two pieces of toast and liquids during shift. BP 175/89 @ 0400. Patient states no further abd pain, and abd bloating is almost gone. Addendum entered by Iris Phillips R.N. 08/21/22 00:00: MONICA Welsh updated on BP 166/78 (112) HR 78 AT 2315. BP recheck 177/90, HR 68 at 0000. Simethecone given for bloating. Addendum entered by Iris Phillips R.N. 08/20/22 21:00: 2020 BP 187/95 (132). HR 77 Cardizem 30 mg po given. Patient OOB for loose BM. Patient returning to bed without difficulty. Original Note: Patient states feeling much better. States abdomen feels bloated after receiving gastrograffin, however states no further abdominal pain. Blaise ANDERSON notified of patient's hypertension. 1999 HR 77 BP 192/1030(139); 2017 BP 191/112 (142). Orders received for Cardizem po. Pharmacy notified of order.
[2022-08-20] MEDS: dilTIAZem 30 MG TABLET PO (20:40)
[2022-08-21] MEDS: SODIUM CHLORIDE 0.9% 1,000 ML 100 ML IV (00:14)
[2022-08-21 04:09] VITALS: BP 175/89; PULSE 66; RESP 16; TEMP 36.9; O2SAT 95
[2022-08-21 05:15] LABS: Add Manual Diff / Slide Review NO; Basophils Absolute Auto 100 /uL (0-100); Basophils Percent Auto 0.8 % (0-2); Eosinophils Absolute Auto 100 /uL (0-450); Eosinophils Percent Auto 1.4 % (2-4); Hematocrit 35.5 % (41-53); Hemoglobin 12.2 g/dL (13.5-17.5); Lymphocytes Absolute Auto 1400 /uL (1100-4500); Lymphocytes Percent Auto 15.4 % (25-40); Mean Corpuscular HGB Conc 34.5 % (30-36); Mean Corpuscular Hemoglobin 33.4 PG (26-34); Mean Corpuscular Volume 96.9 fL (80-100); Monocytes Absolute Auto 1400 /uL (0-900); Monocytes Percent Auto 15.5 % (3-14); Neutrophils Absolute Auto 6100 /uL (1500-7000); Neutrophils Percent Auto 66.9 % (50-75); Platelet Count 255 X10^3/uL (150-400); Red Blood Cell Count 3.67 X10^6/uL (4.5-5.9); Red Cell Distribution Width 13.4 % (11.6-14.8); White Blood Cell Count 9.1 X10^3/uL (4.5-11.0)
[2022-08-21 05:27] LABS: BUN Creatinine Ratio 19.7 (6-22); Blood Urea Nitrogen 12 mg/dL (9-20); Calcium 8.3 mg/dL (8.4-10.2); Carbon Dioxide 28 mmol/L (22-32); Chloride 108 mmol/L (98-107); Estimated Glomerular Filt Rate > 60 mL/min (>60); Glucose 93 mg/dL (80-110); HEMOLYSIS < 15 (0-50); Potassium 3.6 mmol/L (3.4-5.1); Sodium 140 mmol/L (137-145)
[2022-08-21 08:00] VITALS: BP 180/83; PULSE 68; RESP 20; TEMP 36.9; O2SAT 95
[2022-08-21] MEDS: SIMETHICONE 80 MG TABLET PO (08:57)
[2022-08-21 09:29] VITALS: BP 180/83; PULSE 77
[2022-08-21] MEDS: lisinopriL 10 MG TABLET 20 MG PO (09:29)
--- NOTE | 2022-08-21 10:39 | P.PN_ITS ---
Subjective Subjective Date Patient Seen: 08/21/22 Interval history: Still having stools from gastrograffin Exam Vital Signs (past 8 hours): - 08/21/22 04:09 08/21/22 09:29 08/21/22 08:00 Temperature 98.4 F 98.5 F Pulse Rate 66 77 68 Respiratory Rate 16 20 Blood Pressure 175/89 H 180/83 H 180/83 H Pulse Oximetry 95 95 Oxygen Flow Rate 0 Oxygen Delivery Method Room Air Oxygen Flow Rate 0 Narrative Exam Narrative: Abdomen is benign Objective Labs Result Diagrams: 08/21/22 04:30 08/21/22 04:30 Labs: Laboratory Results - last 24 hr 08/21/22 08/21/22 04:30 04:30 WBC 9.1 RBC 3.67 L Hgb 12.2 L Hct 35.5 L MCV 96.9 MCH 33.4 MCHC 34.5 RDW 13.4 Plt Count 255 Neut % (Auto) 66.9 D Lymph % (Auto) 15.4 L Richardson % (Auto) 15.5 H Eos % (Auto) 1.4 L Baso % (Auto) 0.8 Neut # (Auto) 6100 Lymph # (Auto) 1400 Richardson # (Auto) 1400 H Eos # (Auto) 100 Baso # (Auto) 100 Sodium 140 Potassium 3.6 Chloride 108 H Carbon Dioxide 28 BUN 12 Creatinine 0.61 L Estimated GFR > 60 BUN/Creatinine Ratio 19.7 Glucose 93 Calcium 8.3 L PFSH Medical History Elevated blood pressure reading without diagnosis of hypertension GERD (gastroesophageal reflux disease) Localized swelling, mass and lump, left lower limb (08/12/19) Surgical History History of excision of pilonidal cyst (~1969) Family History Mother Colon cancer Pancreatic cancer Father Rheumatic heart disease Grandfather Diabetes mellitus Grandmother Stroke Social History household members: none Smoking Status: Former smoker alcohol intake: current Assessment & Plan Assessment & Plan narrative: Resolved SBO. Plan: add Miralax go home bowel regimen. Advance diet. ok to discharge from surgical standpoint COVID-19 COVID-19 status: Negative Time Spent With Patient Time with patient: 30 to 49 minutes with 50% spent counseling/coordinating care Critical Care time: I spent a total of [] minutes of critical care time on this patient's care today; this time is exclusive of procedural time.
--- NOTE | 2022-08-21 15:30 | P.DS_ITS ---
History of Present Illness History of Present Illness Date Patient Seen: 08/21/22 Chief complaint: abd. pain Narrative: 76-year-old male former smoker with history of hypertension and hyperlipidemia presents with a chief complaint of gradually worsening abdominal pain over the course of the evening.? He states it is now quite severe and most notable in the right upper quadrant and he is afraid he has another bowel obstruction.? He states he has not known incisional hernia in the right upper quadrant that he thinks he has been there since a gallbladder was removed and there is a hard very tender lump at this region that he can normally pushing but has been unsuccessful.? He is had episodes of nausea and vomiting and though he had bowel movement earlier today which was normal he had another later this afternoon which was soft and very small, he does think he is still passing gas.? He has significant pain with any range of motion and improvement with rest.? He denies any fever or chills.? He states he is had no change in diet or medications.? He is having no issues with urination. When I saw him upstairs on the medical floor patient started feeling better, pain improved, nausea improved. I discussed with the surgery, emptying study pending at this time. Patient had 3 hospitalizations in the past with a small-bowel obstruction where he required NG tube only 1 time. 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 As the patient pain and nausea improved, advance diet, tolerated, had a bowel movement. Discharge home with surgery follow-up. Status at Discharge Functional status at discharge: independent ambulation Overall status at discharge: patient is progressing back to baseline Exam Vital Signs (past 8 hours): - 08/21/22 09:29 08/21/22 08:00 Temperature 98.5 F Pulse Rate 77 68 Respiratory Rate 20 Blood Pressure 180/83 H 180/83 H Pulse Oximetry 95 Oxygen Delivery Method Room Air Oxygen Flow Rate 0 Narrative Exam Narrative: Abdomen soft and bowel sounds heard. Exam close to baseline. Objective Labs Result Diagrams: 08/21/22 04:30 08/21/22 04:30 Labs: Laboratory Results - last 24 hr 08/21/22 08/21/22 04:30 04:30 WBC 9.1 RBC 3.67 L Hgb 12.2 L Hct 35.5 L MCV 96.9 MCH 33.4 MCHC 34.5 RDW 13.4 Plt Count 255 Neut % (Auto) 66.9 D Lymph % (Auto) 15.4 L Sebastian % (Auto) 15.5 H Eos % (Auto) 1.4 L Baso % (Auto) 0.8 Neut # (Auto) 6100 Lymph # (Auto) 1400 Sebastian # (Auto) 1400 H Eos # (Auto) 100 Baso # (Auto) 100 Sodium 140 Potassium 3.6 Chloride 108 H Carbon Dioxide 28 BUN 12 Creatinine 0.61 L Estimated GFR > 60 BUN/Creatinine Ratio 19.7 Glucose 93 Calcium 8.3 L PFSH Medical History Elevated blood pressure reading without diagnosis of hypertension GERD (gastroesophageal reflux disease) Localized swelling, mass and lump, left lower limb (08/12/19) Surgical History History of excision of pilonidal cyst (~1969) Family History Mother Colon cancer Pancreatic cancer Father Rheumatic heart disease Grandfather Diabetes mellitus Grandmother Stroke Social History household members: none Smoking Status: Former smoker alcohol intake: current Discharge Assessment & Plan Assessment and Plan Assessment: Small-bowel obstruction with a transition point as confirmed by imaging -patient nausea improving, Gastrografin study pending, surgery following, NPO, hold off on NG tube at this time.? 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 Discharge orders & Medications Prescriptions: Continued aspirin 81 mg Tablet,Delayed Release (Dr/Ec) 81 mg PO DAILY Label Comments: Patient takes Aspirin M-. multivitamin Capsule 1 cap PO DAILY lisinopril 10 mg tablet 10 mg PO DAILY Qty: 30 0RF simvastatin 10 mg tablet 10 mg PO DAILY Qty: 30 0RF fluticasone propionate 50 mcg/actuation [place],Suspension 1 spray INTRANASAL BEDTIME PRN (Reason: Congestion) Label Comments: uses at bedtime on the right side only Rx Instructions: administer into each nostril docusate sodium 100 mg Tablet 200 mg PO BID Follow up/Referrals: Aguila Villafuerte MD [Primary Care Provider] - Discharge Data Primary Care Provider: Aguila Villafuerte
== END 2022-08-21 11:05 | disposition home or self-care (01) | DRG 390 ==
LOC: ED 08-20 00:51 → AC 08-20 01:18 → ICU 08-20 06:03
PROVIDERS: Admitting Provider Nurse Practitioner Family; Emergency Provider Emergency Medicine; Family Provider Internal Medicine; PCP Internal Medicine; Referring Provider Emergency Medicine; Visit Provider Nurse Practitioner Family
DX: K56.600 Partial intestinal obstruction, unspecified as to cause (principal); I10 Essential (primary) hypertension; E78.5 Hyperlipidemia, unspecified; Z87.891 Personal history of nicotine dependence; Z20.822 Contact with and (suspected) exposure to COVID-19
CPT/HCPCS: 36415; 74018; 74019; 74177; 80048; 80053; 81003; 82962; 83605; 83880; 84145; 85025; 85610; 86140; 87635; 96365; 96366; 96375; 96376; 99232; 99284; 99285; C9803; J0690; J1170; J2405; Q9967